=== PATIENT | female | born 1940 | race African-American/Black ===

== ENCOUNTER 2016-06-09 19:54 | Inpatient (IN) | payer MEDICARE ==
[~2016-06-09] VITALS: Ht 165.1 cm; Wt 57.9 kg
[~2016-06-09 19:54] MED LIST: ACET325T9 PO; APIX5TAB PO; BUME1TAB PO; CA C1TAB28 PO; CYCL5TAB PO; DILT240C32 PO; FERR-26 PO; FURO20TA3 PO; HYDR-2762 PO; HYDR-2869 PO; HYDR25TA9 PO; IPRA3AMP IH; LISI40TA PO; MAGN71.5 PO; METO100T11 PO; METO25TA4 PO; METR250T3 PO; OXYB5TAB PO; POTA10CA PO; VERA240C2 PO; VERA80TA2 PO
[2016-06-09] MEDS ORDERED: IV NORMAL SALINE 500ML BAG 500 ML IV ONE (20:45)
[2016-06-09 21:04] LABS: BASO # 0.1 x10^3/uL (0.0-0.2); BASO % 1 % (0-3); EOS % 1 % (0-3); LYMPH # 0.4 x10^3/uL (1.0-4.8); LYMPH % 4 % (24-48); MEAN CORPUSCULAR HEMOGLOBIN 20 pg (25-35); MEAN CORPUSCULAR HGB CONC 30 g/dL (31-37); MEAN CORPUSCULAR VOLUME 68 fL (79-100); MONO % 8 % (0-9); NEUT % 87 % (31-73); PLATELET COUNT 270 x10^3/uL (140-400); RED BLOOD COUNT 1.49 x10^6/uL (3.50-5.40); RED CELL DISTRIBUTION WIDTH 25.7 % (11.5-14.5); WHITE BLOOD COUNT 8.2 x10^3/uL (4.0-11.0)
[2016-06-09 21:09] LABS: HEMATOCRIT 10.2 % (36.0-47.0)
[2016-06-09 21:13] LABS: CALCIUM 8.7 mg/dL (8.5-10.1); GFR 29.5; POTASSIUM 5.3 mmol/L (3.5-5.1)
[2016-06-09 21:18] LABS: BILIRUBIN,URINE NEGATIVE (NEG); GLUCOSE,URINE NEGATIVE (NEG); NITRITE,URINE NEGATIVE (NEG); PH,URINE 5.5; PROTEIN,URINE NEGATIVE (NEG-TRACE); UROBILINOGEN,URINE 0.2 mg/dL (0.2 mg/dL)
[2016-06-09 21:18] LABS: ALBUMIN 2.6 g/dL (3.4-5.0); TOTAL PROTEIN 6.9 g/dL (6.4-8.2)
[2016-06-09 21:19] LABS: ALBUMIN/GLOBULIN RATIO 0.6 (1.0-1.7); TOTAL BILIRUBIN 0.7 mg/dL (0.2-1.0)
[2016-06-09 21:25] LABS: BACTERIA,URINE 0 /HPF (0-FEW); RBC,URINE 0 /HPF (0-2); WBC,URINE 0 /HPF (0-4)
[2016-06-09] MEDS ORDERED: ONDANSETRON PF 4 MG/2 ML VIAL. IV PRN (21:30)
--- NOTE | 2016-06-09 21:32 | PHYS DOC ---
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 She states she is just not felt like getting out of bed. She's been short of breath and has had dyspnea on exertion. She denies any fever chills or sweats. She denies any chest pain. She has not had any melena or hematochezia. No hematemesis. [] Review of Systems Review of Systems Constitutional: Denies fever or chills [] Eyes: Denies change in visual acuity, redness, or eye pain [] HENT: Denies nasal congestion or sore throat [] Respiratory: Per history of present illness [] Cardiovascular: No additional information not addressed in HPI [] GI: Denies abdominal pain, nausea, vomiting, bloody stools or diarrhea [] : Denies dysuria or hematuria [] Musculoskeletal: Denies back pain or joint pain [] Integument: Denies rash or skin lesions [] Neurologic: Denies headache, focal weakness or sensory changes [] Endocrine: Denies polyuria or polydipsia [] Current Medications Current Medications Current Medications Medications (Trade) Dose Ordered Sig/Franchesca Start Time Stop Time Status Last Admin Dose Admin Ondansetron HCl (Zofran) 4 mg PRN Q8HRS PRN 06/09/16 21:30 06/10/16 21:29 Sodium Chloride (Iv Sodium Chloride 0.9% 500ml Bag) 500 ml @ 500 mls/hr 1X ONCE 06/09/16 20:45 06/09/16 21:44 06/09/16 21:20 500 MLS/HR Allergies Allergies Allergies Coded Allergies Type Severity Reaction Last Updated Verified Penicillins Allergy Intermediate Hives 01/30/16 Yes Physical Exam Physical Exam Constitutional: Well developed, well nourished, no acute distress, non-toxic appearance. [] HENT: Normocephalic, atraumatic, bilateral external ears normal, oropharynx moist, no oral exudates, nose normal. [] Eyes: PERRLA, EOMI, conjunctiva normal, no discharge. [] Neck: Normal range of motion, no tenderness, supple, no stridor. [] Cardiovascular:Heart rate regular rhythm, no murmur [] Lungs & Thorax: Bilateral breath sounds clear to auscultation [] Abdomen: Bowel sounds normal, soft, no tenderness, no masses, no pulsatile masses. [] Skin: Warm, dry, no erythema, no rash. [] Back: No tenderness, no CVA tenderness. [] Extremities: No tenderness, no cyanosis, no clubbing, ROM intact, no edema. [] Neurologic: Alert and oriented X 3, normal motor function, normal sensory function, no focal deficits noted. [] Psychologic: Affect normal, judgement normal, mood normal. [] Current Patient Data Vital Signs Vital Signs Date Time Temp Pulse Resp B/P Pulse Ox O2 Delivery O2 Flow Rate FiO2 06/09/16 19:58 97.3 77 18 93/30 88 Nasal Cannula 3 97.3 Lab Values Laboratory Tests Test 06/09/16 20:52 06/09/16 21:11 White Blood Count 8.2x10^3/uL (4.0-11.0) Red Blood Count 1.49x10^6/uL (3.50-5.40) L Hemoglobin 3.0g/dL (12.0-15.5) *L Hematocrit 10.2% (36.0-47.0) *L Mean Corpuscular Volume 68fL (79-100) L Mean Corpuscular Hemoglobin 20pg (25-35) L Mean Corpuscular Hemoglobin Concent 30g/dL (31-37) L Red Cell Distribution Width 25.7% (11.5-14.5) H Platelet Count 270x10^3/uL (140-400) Neutrophils (%) (Auto) 87% (31-73) H Lymphocytes (%) (Auto) 4% (24-48) L Monocytes (%) (Auto) 8% (0-9) Eosinophils (%) (Auto) 1% (0-3) Basophils (%) (Auto) 1% (0-3) Neutrophils # (Auto) 7.1x10^3uL (1.8-7.7) Lymphocytes # (Auto) 0.4x10^3/uL (1.0-4.8) L Monocytes # (Auto) 0.6x10^3/uL (0.0-1.1) Eosinophils # (Auto) 0.0x10^3/uL (0.0-0.7) Basophils # (Auto) 0.1x10^3/uL (0.0-0.2) Platelet Estimate Pending Sodium Level 141mmol/L (136-145) Potassium Level 5.3mmol/L (3.5-5.1) H Chloride Level 108mmol/L (98-107) H Carbon Dioxide Level 21mmol/L (21-32) Anion Gap 12 (6-14) Blood Urea Nitrogen 52mg/dL (7-20) H Creatinine 2.0mg/dL (0.6-1.0) H Estimated GFR (Cockcroft-Gault) 29.5 BUN/Creatinine Ratio 26 (6-20) H Glucose Level 143mg/dL (70-99) H Calcium Level 8.7mg/dL (8.5-10.1) Total Bilirubin 0.7mg/dL (0.2-1.0) Aspartate Amino Transferase (AST) 26U/L (15-37) Alanine Aminotransferase (ALT) 16U/L (14-59) Alkaline Phosphatase 100U/L (46-116) Troponin I Quantitative 0.033ng/mL (0.000-0.055) Total Protein 6.9g/dL (6.4-8.2) Albumin 2.6g/dL (3.4-5.0) L Albumin/Globulin Ratio 0.6 (1.0-1.7) L Urine Collection Type Unknown Urine Color Yellow Urine Clarity Clear Urine pH 5.5 Urine Specific [place] 1.010 Urine Protein Negativemg/dL (NEG-TRACE) Urine Glucose (UA) Negativemg/dL (NEG) Urine Ketones (Stick) Negativemg/dL (NEG) Urine Blood Negative (NEG) Urine Nitrite Negative (NEG) Urine Bilirubin Negative (NEG) Urine Urobilinogen Dipstick 0.2mg/dL (0.2 mg/dL) Urine Leukocyte Esterase Negative (NEG) Urine RBC 0/HPF (0-2) Urine WBC 0/HPF (0-4) Urine Bacteria 0/HPF (0-FEW) Urine Hyaline Casts Moderate/HPF Urine Mucus Slight/LPF Laboratory Tests 06/09/16 20:52 Laboratory Tests 06/09/16 20:52 EKG EKG [] Radiology/Procedures Radiology/Procedures [] Course & Med Decision Making Course & Med Decision Making Pertinent Labs and Imaging studies reviewed. (See chart for details) [ED course: Evaluation reveals a 76-year-old female who appears very weak. It was noted that she had a critically low hemoglobin and hematocrit. Patient was typed and crossed for 2 units of packed red blood cells and a consent for transfusion sign. I spoke with Dr. Abdullahi who agreed to admit the patient to the hospital. GI consult to help in this evaluation.] Dragon Disclaimer Dragon Disclaimer This electronic medical record was generated, in whole or in part, using a voice recognition dictation system. Departure Departure Impression: Primary Impression: Symptomatic anemia Disposition: ADMITTED INPATIENT Admitting Physician: Vijay Abdullahi Condition: GUARDED Referrals: Mehdi ABDULLAHI MD (PCP) ROOSEVELT KAN DO Jun 09, 2016 21:32
[2016-06-09 21:47] LABS: ANISOCYTOSIS MARKED; HYPOCHROMIA MARKED; MICROCYTOSIS MARKED; NUCLEATED RBC 14; PLT ESTIMATE ADEQUATE (ADEQUATE); POIKILOCYTOSIS MOD; POLYCHROMASIA SLIGHT; SICKLE CELLS FEW; TARGET CELLS MANY
[2016-06-09 21:48] LABS: SCHISTOCYTES FEW
[2016-06-09] MEDS ORDERED: FENTANYL PF 100 MCG/2 ML VIAL. IV ONE (22:30)
[2016-06-09 22:38] VITALS: BP 128/62
[2016-06-09 22:43] VITALS: BP 133/64
--- NOTE | 2016-06-09 22:47 | ACF ---
Admission Forms Criteria ANEMIA, IRON DEFICIENCY OR UNSPECIFIED Clinical Indications for Inpatient Care (Place 'X' for any and all applicable criteria): Admission is indicated for ANY ONE of the following(1)(2)(3)(4)(5)(6)(7): [X] I. Inpatient admission required rather than observation care (Also use Anemia, Iron Deficiency or Unspecified: Observation Care guideline as appropriate) because of ANY ONE of the following: [] a) Hemodynamic instability that is severe or persistent [] b) Active bleeding that cannot be rapidly controlled [X] c) CVS symptoms (i.e., dyspnea, chest pain, heart failure) that are severe or persistent [] d) Neurologic symptoms (i.e., cognitive impairment, recurrent syncope or near syncope) that are severe or persistent [] e) Cardiac arrhythmias of immediate concern [] f) Acute peripheral ischemia (e.g., pulseless, cool, mottled, or cyanotic extremity) [] g) High-risk low platelet count [] h) Acute renal failure [] i) Ongoing transfusion for blood loss (greater than 2 units) [] j) IV fluid to replace significant ongoing (eg, >24 hours) losses (> 3 L/m2 per day) [] k) Pulmonary artery catheter monitoring [] l) Supplemental oxygen or respiratory treatments for over 24 hours that are performable only in acute inpatient setting [] m) Immediate inpatient surgery [] n) Other condition, treatment or monitoring requiring inpatient admission [] II Active massive hemorrhage [] III. Active hemolysis with rapidly progressive anemia [A](6) Extended stay beyond goal length of stay may be needed for (17)(18) []a) Diagnosed cause of anemia requiring longer hospitalization (eg, active GI bleeding, immune hemolysis requiring electrophoresis, complications of malignancy requiring acute care []b) Continued emergent anemia indicators (23) []c) Transfusion reactions []d) Associated leukopenia or thrombocytopenia needing inpatient care []e) Active comorbidities (eg, renal failure, heart failure) The original [facility] Care Guidelines content created by [facility] has been revised. The portions of the content which have been revised are identified through the use of italic text or in bold. [facility] Guidelines has neither reviewed nor approved the modified material. All other unmodified content is copyright [facility] Care Guidelines. Please see references footnoted in the original [facility] edition 2016 Admission Criteria Met?: Yes REKHA RAMOS Jun 09, 2016 22:47
[2016-06-09 22:48] VITALS: BP 134/60
[2016-06-09 22:53] VITALS: BP 128/59
[2016-06-09 23:08] VITALS: BP 127/58
[2016-06-09 23:23] VITALS: BP 127/60
[2016-06-10] VITALS (23 sets, daily range): BP systolic 116–149; BP diastolic 42–75
[2016-06-10] MEDS ORDERED: HYDROCODONE/APAP 7.5/325MG TABLET. PO PRN (03:00)
[2016-06-10] MEDS ORDERED: ACET325T9 PO (03:04)
[2016-06-10] MEDS ORDERED: ACETAMINOPHEN 325 MG TABLET. PO PRN (03:15)
--- NOTE | 2016-06-10 06:17 | EKG ---
[facility] [address] [place] [address] Test Date: 2016-06-09 Test Time: 20:19:53 Pat Name: LIMA HECTOR Department: Room: [facility] Gender: F Tunnel Mucker: : 1940 Requested By: ROOSEVELT KAN Order Number: [id number] Reading MD: Maral Mancilla Measurements Intervals [place] Rate: 70 P: 0 MO: 212 QRS: -18 QRSD: 78 T: 26 QT: 424 QTc: 461 Interpretive Statements SINUS RHYTHM LEFTWARD AXIS ST & T ABNORMALITY, CONSIDER HIGH LATERAL ISCHEMIA Electronically Signed On 06-11-2016 21:41:43 CDT by Maral Mancilla
[2016-06-10 06:58] LABS: ALBUMIN 2.5 g/dL (3.4-5.0); ALBUMIN/GLOBULIN RATIO 0.7 (1.0-1.7); CALCIUM 8.6 mg/dL (8.5-10.1); CREATININE 1.8 mg/dL (0.6-1.0); GFR 33.3; TOTAL BILIRUBIN 0.7 mg/dL (0.2-1.0); TOTAL PROTEIN 6.2 g/dL (6.4-8.2)
[2016-06-10 06:59] LABS: POTASSIUM 5.3 mmol/L (3.5-5.1)
[2016-06-10 07:02] LABS: BASO % 1 % (0-3); EOS % 2 % (0-3); LYMPH # 0.9 x10^3/uL (1.0-4.8); LYMPH % 12 % (24-48); MEAN CORPUSCULAR HEMOGLOBIN 24 pg (25-35); MEAN CORPUSCULAR HGB CONC 31 g/dL (31-37); MEAN CORPUSCULAR VOLUME 78 fL (79-100); MONO % 11 % (0-9); NEUT % 75 % (31-73); PLATELET COUNT 231 x10^3/uL (140-400); RED BLOOD COUNT 2.36 x10^6/uL (3.50-5.40); WHITE BLOOD COUNT 7.1 x10^3/uL (4.0-11.0)
[2016-06-10 07:09] LABS: HEMATOCRIT 18.3 % (36.0-47.0); HEMOGLOBIN 5.7 g/dL (12.0-15.5)
--- NOTE | 2016-06-10 08:21 | RAD ---
Indication: Weakness. Technique: Upright portable chest radiograph was obtained. Comparison is from November 25, 2015. Findings: The heart is enlarged. Allowing for portable technique, the pulmonary vasculature is still probably mildly cephalized. No focal airspace disease is identified. Right costophrenic angle is blunted and right basilar opacity is noted. Advanced presumed degenerative changes in the shoulders are stable. Leads overlie the patient. Impression: 1. Mild vascular congestion suspected. 2. Right basilar opacity with blunting of the costophrenic sulcus. A component of pleural parenchymal scarring may be present. Superimposed small effusion along with atelectasis and/or infiltrate is hard to exclude.
[2016-06-10] MEDS: POTASSIUM CHLORIDE 10 MEQ TABLET.ER. PO SCH (09:00)
[2016-06-10] MEDS ORDERED: [UNRECOGNIZED DRUG - REMARK] PO SCH (09:00)
[2016-06-10] MEDS: BUMETANIDE 1 MG TABLET PO SCH (09:55)
[2016-06-10] MEDS: VITAMIN B COMPLEX TABLET. PO SCH (09:55)
[2016-06-10] MEDS: CHOLECALCIFEROL (VITAMIN D3) 1,000 UNIT TABLET PO SCH (09:55)
[2016-06-10] MEDS: METOPROLOL TART IMMED RELEASE 25 MG TABLET PO SCH ×2 (09:56→20:51)
[2016-06-10] MEDS: MAGNESIUM CHLORIDE ER 64 MG TABLET.ER PO SCH ×2 (09:56)
--- NOTE | 2016-06-10 10:52 | PDOC2 ---
CRISTOBAL DUNCAN 06/10/16 1052: GI CONSULT Reason For Consult: Anemia HPI: HPI: 76 y/o AA female previously evaluated by Dr. Butler. Admitted through ER where she was evaluated for fatigue and weakness. PMH is significant for sickle cell anemia. Labs in ER: Hgb 3 (now 5.7 s/p transfusion w/ additional transfusion pending). Note elevated BUN and Cr as well. We have seen her for n/v, elevated LFTs, and hematochezia. She reports previous normal colonoscopy 5-6 years ago and also had an EGD at some point which was also reportedly normal. Not the best historian. On this occasion, she reports some nausea and vomiting at home, no hematemesis. Also had diarrhea (loose and watery stools), no melena or hematochezia. Some GERD symptoms, believes she takes Maalox for this. Eating okay at home. She ate breakfast w/o issue this morning. Note: previously neg Hep panel, hemoccult neg 10/2015. PMH: PMH: Per HPI - plus cholecystectomy, cataract extraction, tonsillectomy, appendectomy , hysterectomy, oophorectomy, salpingectomy, bilateral hip replacements, CVA, HTN, COPD, [place], CHF, h/o blood transfusions, CRI, anxiety, C Diff, A Fib/flutter , lactic acidosis, urosepsis FH: Family History: No pertinent hx Social History: ALCOHOL: none Drugs: None ROS: GEN: Denies fevers, chills, sweats HEENT: Denies blurred vision, sore throat CV: Denies chest pain RESP: +some SOA GI: Per HPI : Denies hematuria, dysuria ENDO: Denies weight changes NEURO: Denies confusion, dizziness MSK: +weakness SKIN: Denies jaundice, pruritus VItals: Vitals: Vital Signs Date Time Temp Pulse Resp B/P Pulse Ox O2 Delivery O2 Flow Rate FiO2 06/10/16 09:56 68 135/66 06/10/16 09:42 97.8 14 97.8 06/10/16 07:00 100 Nasal Cannula 3.0 Labs: Labs: Laboratory Tests Test 06/09/16 20:52 06/09/16 21:11 06/10/16 05:55 White Blood Count 8.2x10^3/uL (4.0-11.0) 7.1x10^3/uL (4.0-11.0) Red Blood Count 1.49x10^6/uL (3.50-5.40) 2.36x10^6/uL (3.50-5.40) Hemoglobin 3.0g/dL (12.0-15.5) 5.7g/dL (12.0-15.5) Hematocrit 10.2% (36.0-47.0) 18.3% (36.0-47.0) Mean Corpuscular Volume 68fL (79-100) 78fL (79-100) Mean Corpuscular Hemoglobin 20pg (25-35) 24pg (25-35) Mean Corpuscular Hemoglobin Concent 30g/dL (31-37) 31g/dL (31-37) Red Cell Distribution Width 25.7% (11.5-14.5) 27.0% (11.5-14.5) Platelet Count 270x10^3/uL (140-400) 231x10^3/uL (140-400) Neutrophils (%) (Auto) 87% (31-73) 75% (31-73) Lymphocytes (%) (Auto) 4% (24-48) 12% (24-48) Monocytes (%) (Auto) 8% (0-9) 11% (0-9) Eosinophils (%) (Auto) 1% (0-3) 2% (0-3) Basophils (%) (Auto) 1% (0-3) 1% (0-3) Neutrophils # (Auto) 7.1x10^3uL (1.8-7.7) 5.3x10^3uL (1.8-7.7) Lymphocytes # (Auto) 0.4x10^3/uL (1.0-4.8) 0.9x10^3/uL (1.0-4.8) Monocytes # (Auto) 0.6x10^3/uL (0.0-1.1) 0.8x10^3/uL (0.0-1.1) Eosinophils # (Auto) 0.0x10^3/uL (0.0-0.7) 0.1x10^3/uL (0.0-0.7) Basophils # (Auto) 0.1x10^3/uL (0.0-0.2) 0.0x10^3/uL (0.0-0.2) Segmented Neutrophils % 95% (35-66) Lymphocytes % 4% (24-48) Monocytes % 1% (0-10) Nucleated Red Blood Cells 14 Platelet Estimate Adequate (ADEQUATE) Giant Platelets Few Polychromasia Slight Hypochromasia Marked Poikilocytosis Mod Anisocytosis Marked Microcytosis Marked Macrocytosis Slight Sickle Cells Few Target Cells Many Schistocytes Few RBC Morphology Bizarre Forms Few Sodium Level 141mmol/L (136-145) 142mmol/L (136-145) Potassium Level 5.3mmol/L (3.5-5.1) 5.3mmol/L (3.5-5.1) Chloride Level 108mmol/L (98-107) 112mmol/L (98-107) Carbon Dioxide Level 21mmol/L (21-32) 22mmol/L (21-32) Anion Gap 12 (6-14) 8 (6-14) Blood Urea Nitrogen 52mg/dL (7-20) 50mg/dL (7-20) Creatinine 2.0mg/dL (0.6-1.0) 1.8mg/dL (0.6-1.0) Estimated GFR (Cockcroft-Gault) 29.5 33.3 BUN/Creatinine Ratio 26 (6-20) 28 (6-20) Glucose Level 143mg/dL (70-99) 104mg/dL (70-99) Calcium Level 8.7mg/dL (8.5-10.1) 8.6mg/dL (8.5-10.1) Total Bilirubin 0.7mg/dL (0.2-1.0) 0.7mg/dL (0.2-1.0) Aspartate Amino Transf (AST/SGOT) 26U/L (15-37) 18U/L (15-37) Alanine Aminotransferase (ALT/SGPT) 16U/L (14-59) 17U/L (14-59) Alkaline Phosphatase 100U/L (46-116) 92U/L (46-116) Troponin I Quantitative 0.033ng/mL (0.000-0.055) Total Protein 6.9g/dL (6.4-8.2) 6.2g/dL (6.4-8.2) Albumin 2.6g/dL (3.4-5.0) 2.5g/dL (3.4-5.0) Albumin/Globulin Ratio 0.6 (1.0-1.7) 0.7 (1.0-1.7) Urine Collection Type Unknown Urine Color Yellow Urine Clarity Clear Urine pH 5.5 Urine Specific [place] 1.010 Urine Protein Negativemg/dL (NEG-TRACE) Urine Glucose (UA) Negativemg/dL (NEG) Urine Ketones (Stick) Negativemg/dL (NEG) Urine Blood Negative (NEG) Urine Nitrite Negative (NEG) Urine Bilirubin Negative (NEG) Urine Urobilinogen Dipstick 0.2mg/dL (0.2 mg/dL) Urine Leukocyte Esterase Negative (NEG) Urine RBC 0/HPF (0-2) Urine WBC 0/HPF (0-4) Urine Bacteria 0/HPF (0-FEW) Urine Hyaline Casts Moderate/HPF Urine Mucus Slight/LPF Allergies: Coded Allergies: Penicillins (Verified Allergy, Intermediate, Hives, 06/10/16) Medications: Current Medications Medications (Trade) Dose Ordered Sig/Franchesca Route PRN Reason Start Time Stop Time Status Last Admin Dose Admin Sodium Chloride (Iv Sodium Chloride 0.9% 500ml Bag) 500 ml @ 500 mls/hr 1X ONCE IV 06/09/16 20:45 06/09/16 21:44 DC 06/09/16 21:20 Fentanyl Citrate (Fentanyl 2ml Vial) 50 mcg 1X ONCE IV 06/09/16 22:30 06/09/16 22:31 DC 06/09/16 22:31 Bumetanide (Bumex) 1 mg DAILY PO 06/10/16 09:00 06/10/16 09:55 Acetaminophen/ Hydrocodone Bitart (Lortab 7.5/325) 1 tab PRN Q6HRS PRN PO PAIN 06/10/16 03:00 06/10/16 03:59 Metoprolol Tartrate (Lopressor) 25 mg BID PO 06/10/16 09:00 06/10/16 09:56 Magnesium Chloride (Mag Delay) 64 mg DAILY PO 06/10/16 09:00 06/10/16 09:56 Vitamin B Complex (Dewayne B) 1 tab DAILY PO 06/10/16 09:00 06/10/16 09:55 Vitamin D (Vitamin D3) 1,000 unit DAILY PO 06/10/16 09:00 06/10/16 09:55 Imaging: Imaging: CXR Impression: 1. Mild vascular congestion suspected. 2. Right basilar opacity with blunting of the costophrenic sulcus. A component of pleural parenchymal scarring may be present. Superimposed small effusion along with atelectasis and/or infiltrate is hard to exclude. PE: GEN: NAD HEENT: Atraumatic, PERRLA LUNGS: CTAB HEART: RRR, no murmurs ABD: NABS, S/ND/NT, no masses EXTREMITY: No edema SKIN: No rashes, no jaundice NEURO/PSYCH: A & O 3 A/P: A/P: Sickle cell anemia -critical Hgb 3 on admission -transfusions in process N/v, diarrhea -history of this - seems to come and go -h/o C Diff -recalls previous EGD and colonoscopy as normal (unsure when/where) -- D/w Dr. Butler - profound anemia w/ slightly elevated BUN. Will proceed w/ EGD tonight to r/o UGI source. NPO, IV PPI. D/w RN, GI lab. Will also check C Diff w/ h/o this. SHAVONNE BUTLER MD 06/10/16 1748: GI CONSULT Allergies: Coded Allergies: Penicillins (Verified Allergy, Intermediate, Hives, 06/10/16) CRISTOBAL DUNCAN Jun 10, 2016 10:52 SHAVONNE BUTLER MD Jun 10, 2016 17:48
[2016-06-10] MEDS: PANTOPRAZOLE IV PUSH 40 MG VIAL. IVP SCH (13:00)
[2016-06-10] MEDS: IV RINGERS,LACTATED 1000ML 1,000 ML IV SCH (16:41)
[2016-06-10] MEDS ORDERED: PROPOFOL 20 ML IV ONE (17:39)
[2016-06-10] MEDS ORDERED: LIDOCAINE 2% PF Vial for OR 5 ML VIAL. ONE (17:39)
--- NOTE | 2016-06-10 17:55 | PDOC4 ---
Operative Note Operative Note EGD Meds propofol 150 mg Pre-op dx severe acute anemia post-op dx atrophic gastritis Plan transfusional support serial cbcs advance diet PROPSHAVONNE MORILLO MD Jun 10, 2016 17:55
--- NOTE | 2016-06-10 18:17 | PDOC ---
Provider Note Provider Note H&P dictated # [id number] Mehdi ABDULLAHI MD Jun 10, 2016 18:17
[2016-06-10] MEDS: DILTIAZEM HCL 240 MG CAP.ER.24H PO SCH (20:51)
--- NOTE | 2016-06-10 20:53 | HP ---
ADMIT DATE: 06/10/2016 ADMISSION DIAGNOSIS: Profound anemia. HISTORY OF PRESENT ILLNESS: This is a 76-year-old -[place] female with a history of longstanding sickle cell anemia, who has presented to the Emergency Room with fatigue and weakness. She was unable to get out of bed due to weakness and feeling short of breath, but not having chest pain. No cold or flu symptoms. In the Emergency Room, she was found to have hemoglobin of 3. She subsequently has been transfused 2 units of blood, hemoglobin has come up, but still low and said that she has not had hemoglobin this low with her sickle cell and not in apparent sickle cell crisis. GI has been consulted. PAST MEDICAL HISTORY: Cerebrovascular accident in 1992 with some mild left-sided weakness. She has heart murmur, cardiac disease, hypertension, COPD, and osteoarthritis. PAST SURGICAL HISTORY: Include cataract extraction, tonsillectomy, adenoidectomy, appendectomy, cholecystectomy, hysterectomy, oophorectomy, salpingectomy, and bilateral hip replacements. SOCIAL HISTORY: Positive for a [id number] tobacco history. FAMILY HISTORY: Sickle cell. ALLERGIES: SHE HAS AN ALLERGY TO PENICILLIN. HOME MEDICATIONS: Include nasal cannula oxygen, Tylenol 325 mg two q. 6-8 hours p.r.n. pain, bumetanide 1 mg daily, vitamin D 3000 units daily, diltiazem 240 mg daily, hydrocodone APAP 7.5/325 mg one q. 6h. p.r.n. pain, Slow-Mag 71.5 mg daily, metoprolol 25 mg b.i.d., and potassium chloride 10 mEq daily. REVIEW OF SYSTEMS: She denies chest pain. She denies any cold or flu symptoms. She has not had any cough. She had not had any nausea or vomiting or noticed any change in her stool. She has not noticed any blood in her stools. She had not noticed any bleeding or bruising in her skin. She denies nosebleeds. She has been profoundly weak without specific joint complaints. She has not had crisis-type sickle cell pain. PHYSICAL EXAMINATION: VITAL SIGNS: She is afebrile. Heart rate has been in the mid 50s upper 50s, and lower 60s. Respiratory rate is normal. Blood pressures are generally around 140/70. She has got oxygen saturations in the [id number] 90s on 3 liters nasal cannula. GENERAL: She is not in a significant amount of distress. She is alert and oriented. She has her glasses on. There is a little bit of icterus to her eyes. HEENT: Mucous membranes are moist. She is wearing nasal cannula oxygen. NECK: Supple. HEART: Regular rate and rhythm with a 2/6 systolic murmur. LUNGS: Sound clear. ABDOMEN: Not showing any epigastric pain or mass. No palpable liver abnormality. Spleen seems a little enlarged, but nontender. Bowel sounds are present. SKIN: Her nails are a bit pale. EXTREMITIES: No clubbing, no edema. LABORATORY DATA: Initial hemoglobin of 3, corrected at 5.7 after 2 units packed red blood cells. Hemoglobin increased from 10.2-18.3. Platelets are normal. Potassium is slightly elevated at 5.3. Electrolytes are normal. BUN is elevated at 52, creatinine is elevated at 2, and glucose 143. Liver enzymes are normal, but albumin is low at 2.6. Urinalysis is unremarkable. IMAGING STUDIES: Chest x-ray showed some mild vascular congestion, right basilar opacity, likely from scarring versus a small effusion. ASSESSMENT: 1. Sickle cell anemia with profound anemia - unexplained just by her sickle cell. She is status post 2 units of packed red cells and remains significantly anemic. She is admitted. GI to see for an endoscopy. She is receiving 2 more units of packed red blood cells. She is not having any acute decompensation symptoms. 2. Chronic kidney disease. 3. Hypertension. 4. Heart murmur. 5. Tobacco use disorder. PLAN: Continue home medications in addition to the above GI evaluation and transfusion. W Kathy ABDULLAHI MD DR: KATE/cyril JOB#: [id number] / [id number]
[2016-06-11 04:34] LABS: HEMATOCRIT 29.3 % (36.0-47.0); HEMOGLOBIN 9.1 g/dL (12.0-15.5); RED BLOOD COUNT 3.64 x10^6/uL (3.50-5.40); RED CELL DISTRIBUTION WIDTH 23.2 % (11.5-14.5); WHITE BLOOD COUNT 7.6 x10^3/uL (4.0-11.0)
[2016-06-11 04:51] LABS: ALBUMIN 2.4 g/dL (3.4-5.0); ALBUMIN/GLOBULIN RATIO 0.5 (1.0-1.7); CALCIUM 8.8 mg/dL (8.5-10.1); CREATININE 1.6 mg/dL (0.6-1.0); GFR 38.1; POTASSIUM 5.1 mmol/L (3.5-5.1); TOTAL BILIRUBIN 0.7 mg/dL (0.2-1.0); TOTAL PROTEIN 6.9 g/dL (6.4-8.2)
[2016-06-11] MEDS: IV RINGERS,LACTATED 1000ML 1,000 ML IV SCH (04:59)
[2016-06-11 07:00] VITALS: BP 133/50
[2016-06-11 07:49] LABS: % SAT IRON 6 % (15-34); IRON,SERUM 18 ug/dL (50-170)
--- NOTE | 2016-06-11 08:56 | PDOC ---
PROGRESS NOTES Subjective Subjective Patient reports feeling well overall this morning. EGD yesterday did not show any acute bleed and Hgb is improved to 9.1 today. Patient reports that she was experiencing left arm pain and weakness yesterday that has now resolved. She had some pain in her right big toe yesterday which has also now resolved. She also states that she has not had a bowel movement since she was admitted on Wednesday. Objective Objective Vital Signs Date Time Temp Pulse Resp B/P Pulse Ox O2 Delivery O2 Flow Rate FiO2 06/11/16 07:00 97.9 51 18 133/50 100 Nasal Cannula 3.0 97.9 Intake and Output 06/11/16 07:00 Intake Total 2780 ml Balance 2780 ml Intake Oral 1230 ml IV Total 450 ml Blood Product IV Normal Saline Flush 1100 ml # Voids 12 Physical Exam Abdomen: Normal bowel sounds, No tenderness Heart: Regular rate, Normal S1, Normal S2, Other (Systolic murmur best heard at left upper sternal border) Extremities: No edema, Normal pulses, No tenderness/swelling General: Alert, Oriented X3 HEENT: Atraumatic, Mucous membr. moist/pink Lungs: Clear to auscultation, Normal air movement MUSCULOSKELETAL: No joint tenderness Neuro: Normal gait Assessment Assessment Problems Medical Problems: (1) Symptomatic anemia she is iron deficient, EGD showed atrophic gastritis but her B12 is normal, she has been on oral iron until recently Status: Acute Plan Plan of Care (1) Symptomatic anemia- Hgb 9.1 today, continue to monitor, EGD negative for acute bleed-demonstrated atrophic gastritis but B12 level and folic acid are normal, will dose IV iron, advance diet Status: Acute Comment Review of Relevant I have reviewed the following items zaire (where applicable) has been applied. Labs Laboratory Tests Test 06/09/16 20:52 06/09/16 21:11 06/10/16 04:05 06/10/16 05:55 White Blood Count 8.2x10^3/uL (4.0-11.0) 7.1x10^3/uL (4.0-11.0) Red Blood Count 1.49x10^6/uL (3.50-5.40) 2.36x10^6/uL (3.50-5.40) Hemoglobin 3.0g/dL (12.0-15.5) 5.7g/dL (12.0-15.5) Hematocrit 10.2% (36.0-47.0) 18.3% (36.0-47.0) Mean Corpuscular Volume 68fL (79-100) 78fL (79-100) Mean Corpuscular Hemoglobin 20pg (25-35) 24pg (25-35) Mean Corpuscular Hemoglobin Concent 30g/dL (31-37) 31g/dL (31-37) Red Cell Distribution Width 25.7% (11.5-14.5) 27.0% (11.5-14.5) Platelet Count 270x10^3/uL (140-400) 231x10^3/uL (140-400) Neutrophils (%) (Auto) 87% (31-73) 75% (31-73) Lymphocytes (%) (Auto) 4% (24-48) 12% (24-48) Monocytes (%) (Auto) 8% (0-9) 11% (0-9) Eosinophils (%) (Auto) 1% (0-3) 2% (0-3) Basophils (%) (Auto) 1% (0-3) 1% (0-3) Neutrophils # (Auto) 7.1x10^3uL (1.8-7.7) 5.3x10^3uL (1.8-7.7) Lymphocytes # (Auto) 0.4x10^3/uL (1.0-4.8) 0.9x10^3/uL (1.0-4.8) Monocytes # (Auto) 0.6x10^3/uL (0.0-1.1) 0.8x10^3/uL (0.0-1.1) Eosinophils # (Auto) 0.0x10^3/uL (0.0-0.7) 0.1x10^3/uL (0.0-0.7) Basophils # (Auto) 0.1x10^3/uL (0.0-0.2) 0.0x10^3/uL (0.0-0.2) Segmented Neutrophils % 95% (35-66) Lymphocytes % 4% (24-48) Monocytes % 1% (0-10) Nucleated Red Blood Cells 14 Platelet Estimate Adequate (ADEQUATE) Giant Platelets Few Polychromasia Slight Hypochromasia Marked Poikilocytosis Mod Anisocytosis Marked Microcytosis Marked Macrocytosis Slight Sickle Cells Few Target Cells Many Schistocytes Few RBC Morphology Bizarre Forms Few Sodium Level 141mmol/L (136-145) 142mmol/L (136-145) Potassium Level 5.3mmol/L (3.5-5.1) 5.3mmol/L (3.5-5.1) Chloride Level 108mmol/L (98-107) 112mmol/L (98-107) Carbon Dioxide Level 21mmol/L (21-32) 22mmol/L (21-32) Anion Gap 12 (6-14) 8 (6-14) Blood Urea Nitrogen 52mg/dL (7-20) 50mg/dL (7-20) Creatinine 2.0mg/dL (0.6-1.0) 1.8mg/dL (0.6-1.0) Estimated GFR (Cockcroft-Gault) 29.5 33.3 BUN/Creatinine Ratio 26 (6-20) 28 (6-20) Glucose Level 143mg/dL (70-99) 104mg/dL (70-99) Calcium Level 8.7mg/dL (8.5-10.1) 8.6mg/dL (8.5-10.1) Total Bilirubin 0.7mg/dL (0.2-1.0) 0.7mg/dL (0.2-1.0) Aspartate Amino Transf (AST/SGOT) 26U/L (15-37) 18U/L (15-37) Alanine Aminotransferase (ALT/SGPT) 16U/L (14-59) 17U/L (14-59) Alkaline Phosphatase 100U/L (46-116) 92U/L (46-116) Troponin I Quantitative 0.033ng/mL (0.000-0.055) Total Protein 6.9g/dL (6.4-8.2) 6.2g/dL (6.4-8.2) Albumin 2.6g/dL (3.4-5.0) 2.5g/dL (3.4-5.0) Albumin/Globulin Ratio 0.6 (1.0-1.7) 0.7 (1.0-1.7) Urine Collection Type Unknown Urine Color Yellow Urine Clarity Clear Urine pH 5.5 Urine Specific [place] 1.010 Urine Protein Negativemg/dL (NEG-TRACE) Urine Glucose (UA) Negativemg/dL (NEG) Urine Ketones (Stick) Negativemg/dL (NEG) Urine Blood Negative (NEG) Urine Nitrite Negative (NEG) Urine Bilirubin Negative (NEG) Urine Urobilinogen Dipstick 0.2mg/dL (0.2 mg/dL) Urine Leukocyte Esterase Negative (NEG) Urine RBC 0/HPF (0-2) Urine WBC 0/HPF (0-4) Urine Bacteria 0/HPF (0-FEW) Urine Hyaline Casts Moderate/HPF Urine Mucus Slight/LPF Iron Level 18ug/dL (50-170) Total Iron Binding Capacity 284ug/dL (250-450) Iron Saturation 6% (15-34) Test 06/11/16 01:05 06/11/16 04:05 Reticulocyte Count (auto) 3.9% (0.5-2.5) White Blood Count 7.6x10^3/uL (4.0-11.0) Red Blood Count 3.64x10^6/uL (3.50-5.40) Hemoglobin 9.1g/dL (12.0-15.5) Hematocrit 29.3% (36.0-47.0) Mean Corpuscular Volume 81fL (79-100) Mean Corpuscular Hemoglobin 25pg (25-35) Mean Corpuscular Hemoglobin Concent 31g/dL (31-37) Red Cell Distribution Width 23.2% (11.5-14.5) Platelet Count 244x10^3/uL (140-400) Sodium Level 145mmol/L (136-145) Potassium Level 5.1mmol/L (3.5-5.1) Chloride Level 111mmol/L (98-107) Carbon Dioxide Level 23mmol/L (21-32) Anion Gap 11 (6-14) Blood Urea Nitrogen 44mg/dL (7-20) Creatinine 1.6mg/dL (0.6-1.0) Estimated GFR (Cockcroft-Gault) 38.1 BUN/Creatinine Ratio 28 (6-20) Glucose Level 113mg/dL (70-99) Calcium Level 8.8mg/dL (8.5-10.1) Total Bilirubin 0.7mg/dL (0.2-1.0) Aspartate Amino Transf (AST/SGOT) 20U/L (15-37) Alanine Aminotransferase (ALT/SGPT) 16U/L (14-59) Alkaline Phosphatase 95U/L (46-116) Total Protein 6.9g/dL (6.4-8.2) Albumin 2.4g/dL (3.4-5.0) Albumin/Globulin Ratio 0.5 (1.0-1.7) Laboratory Tests Test 06/11/16 01:05 06/11/16 04:05 Reticulocyte Count (auto) 3.9% (0.5-2.5) White Blood Count 7.6x10^3/uL (4.0-11.0) Red Blood Count 3.64x10^6/uL (3.50-5.40) Hemoglobin 9.1g/dL (12.0-15.5) Hematocrit 29.3% (36.0-47.0) Mean Corpuscular Volume 81fL (79-100) Mean Corpuscular Hemoglobin 25pg (25-35) Mean Corpuscular Hemoglobin Concent 31g/dL (31-37) Red Cell Distribution Width 23.2% (11.5-14.5) Platelet Count 244x10^3/uL (140-400) Sodium Level 145mmol/L (136-145) Potassium Level 5.1mmol/L (3.5-5.1) Chloride Level 111mmol/L (98-107) Carbon Dioxide Level 23mmol/L (21-32) Anion Gap 11 (6-14) Blood Urea Nitrogen 44mg/dL (7-20) Creatinine 1.6mg/dL (0.6-1.0) Estimated GFR (Cockcroft-Gault) 38.1 BUN/Creatinine Ratio 28 (6-20) Glucose Level 113mg/dL (70-99) Calcium Level 8.8mg/dL (8.5-10.1) Total Bilirubin 0.7mg/dL (0.2-1.0) Aspartate Amino Transf (AST/SGOT) 20U/L (15-37) Alanine Aminotransferase (ALT/SGPT) 16U/L (14-59) Alkaline Phosphatase 95U/L (46-116) Total Protein 6.9g/dL (6.4-8.2) Albumin 2.4g/dL (3.4-5.0) Albumin/Globulin Ratio 0.5 (1.0-1.7) Medications Current Medications Sodium Chloride (Iv Sodium Chloride 0.9% 500ml Bag) 500 ml @ 500 mls/hr 1X ONCE IV Last administered on 06/09/16 21:20; Start 06/09/16 at 20:45; Stop at 21:44; Status DC Ondansetron HCl (Zofran) 4 mg PRN Q8HRS PRN IV NAUSEA/VOMITING; Start 06/09/16 at 21:30; Stop 06/10/16 at 21:29; Status DC Fentanyl Citrate (Fentanyl 2ml Vial) 50 mcg 1X ONCE IV Last administered on 22:31; Start 06/09/16 at 22:30; Stop 06/09/16 at 22:31; Status DC Bumetanide (Bumex) 1 mg DAILY PO Last administered on 06/10/16 09:55; Start at 09:00 Diltiazem HCl (Cardizem 24hr Cd) 240 mg QHS PO Last administered on 06/10/16 20:51; Start 06/10/16 at 21:00 Acetaminophen/ Hydrocodone Bitart (Lortab 7.5/325) 1 tab PRN Q6HRS PRN PO PAIN Last administered on 06/10/16 03:59; Start 06/10/16 at 03:00 Metoprolol Tartrate (Lopressor) 25 mg BID PO Last administered on 06/10/16 20: 51; Start 06/10/16 at 09:00 Non-Formulary Medication 1 each DAILY PO ; Start 06/10/16 at 09:00; Status UNV Magnesium Chloride (Mag Delay) 64 mg DAILY PO Last administered on 06/10/16 09 :56; Start 06/10/16 at 09:00 Potassium Chloride (Klor-Con) 10 meq DAILY PO ; Start 06/10/16 at 09:00 Acetaminophen (Tylenol) 650 mg PRN Q6HRS PRN PO MILD PAIN; Start 06/10/16 at 03 :15 Vitamin B Complex (Dewayen B) 1 tab DAILY PO Last administered on 06/10/16 09:55 ; Start 06/10/16 at 09:00 Vitamin D (Vitamin D3) 1,000 unit DAILY PO Last administered on 06/10/16 09:55 ; Start 06/10/16 at 09:00 Pantoprazole Sodium 40 mg 40 mg DAILYAC IVP Last administered on 06/10/16 13: 00; Start 06/10/16 at 10:00 Lactated Ringer's 1,000 ml @ 75 mls/hr [id number] IV Last administered on 04:59; Start 06/10/16 at 17:00 Propofol (Diprivan) 20 ml @ As Directed STK-MED ONCE IV ; Start 06/10/16 at 17: 39; Stop 06/10/16 at 17:40; Status DC Lidocaine HCl (Lidocaine Pf 2% Vial) 5 ml STK-MED ONCE .ROUTE ; Start 06/10/16 at 17:39; Stop 06/10/16 at 17:40; Status DC Active Scripts Active Slow-Mag (Magnesium Chloride) 71.5 Mg Tablet.dr 71.5 Mg PO DAILY Metoprolol Tartrate 25 Mg Tablet 25 Mg PO BID Diltiazem 24HR Cd (Diltiazem Hcl) 240 Mg Cap.er.24h 240 Mg PO QHS Bumetanide 1 Mg Tablet 1 Mg PO DAILY Reported Tylenol (Acetaminophen) 325 Mg Tablet 650 Mg PO Q6-8HRS PRN Potassium Chloride 10 Meq Capsule.er 1 Cap PO DAILY Hydrocodone-Apap 7.5-325 (Hydrocodone Bit/Acetaminophen) 1 Each Tablet 1 Tab PO PRN Q6HRS PRN Vitamin D3 1,000 Unit Tablet (Ca Cmb No.1/Vit D3/B-6/Fa/B12) 1 Each Tablet 1 Each PO DAILY Vitals/I & O Vital Sign - Last 24 Hours 06/10/16 06/10/16 06/10/16 06/10/16 09:27 09:42 09:56 10:44 Temp 97.7 97.8 98.5 97.7 97.8 98.5 Pulse 65 68 68 63 Resp 16 14 20 B/P 135/67 135/66 135/66 148/60 Pulse Ox 100 O2 Delivery Nasal Cannula O2 Flow Rate 3.0 3/15/17 3/15/17 3/15/17 3/15/17 10:45 11:45 12:20 13:35 Temp 98.5 97.8 98.4 98.3 98.5 97.8 98.4 98.3 Pulse 63 61 57 72 Resp 20 18 16 16 B/P 148/60 149/67 130/63 145/74 06/10/16 06/10/16 06/10/16 06/10/16 13:50 14:42 14:50 15:50 Temp 98.4 97.7 98.5 98.5 98.4 97.7 98.5 98.5 Pulse 67 71 59 57 Resp 18 20 18 18 B/P 133/75 143/73 133/69 139/66 Pulse Ox 97 O2 Delivery Nasal Cannula O2 Flow Rate 3.0 06/10/16 06/10/16 06/10/16 06/10/16 16:18 16:18 16:33 17:58 Temp 97.8 97.9 97.9 97.8 97.9 97.9 Pulse 68 54 60 Resp 18 16 20 B/P 149/69 114/73 Pulse Ox 95 98 O2 Delivery Nasal Cannula Nasal Cannula O2 Flow Rate 3.0 3.0 06/10/16 06/10/16 06/10/16 06/10/16 18:08 18:15 19:00 20:00 Temp 97.9 97.9 97.6 97.9 97.9 97.6 Pulse 61 64 54 Resp 20 20 20 B/P 116/51 141/62 144/71 Pulse Ox 96 97 93 O2 Delivery Nasal Cannula Nasal Cannula Nasal Cannula Nasal Cannula O2 Flow Rate 3.0 3.0 3.0 3.0 06/10/16 06/10/16 06/10/16 06/11/16 20:51 20:51 22:41 07:00 Temp 98.1 97.9 98.1 97.9 Pulse 54 54 61 51 Resp 19 18 B/P 144/71 144/71 134/53 133/50 Pulse Ox 100 100 O2 Delivery Nasal Cannula Nasal Cannula O2 Flow Rate 3.0 3.0 Intake and Output 06/10/16 06/10/16 06/11/16 15:00 23:00 07:00 Intake Total 1280 ml 450 ml 1050 ml Balance 1280 ml 450 ml 1050 ml Mehdi ABDULLAHI MD Jun 11, 2016 08:56
[2016-06-11] MEDS: BUMETANIDE 1 MG TABLET PO SCH (09:00)
[2016-06-11] MEDS: POTASSIUM CHLORIDE 10 MEQ TABLET.ER. PO SCH (09:00)
[2016-06-11] MEDS: METOPROLOL TART IMMED RELEASE 25 MG TABLET PO SCH ×2 (09:09→21:23)
[2016-06-11] MEDS: CHOLECALCIFEROL (VITAMIN D3) 1,000 UNIT TABLET PO SCH (09:09)
[2016-06-11] MEDS: VITAMIN B COMPLEX TABLET. PO SCH (09:09)
[2016-06-11] MEDS: PANTOPRAZOLE IV PUSH 40 MG VIAL. IVP SCH (09:10)
[2016-06-11] MEDS: MAGNESIUM CHLORIDE ER 64 MG TABLET.ER PO SCH ×2 (09:16)
[2016-06-11 10:55] VITALS: BP 125/49
--- NOTE | 2016-06-11 11:14 | PDOC ---
G I PROGRESS NOTE Reason for Follow-up Acute blood loss anemia Subjective Feeling better S/p transfusions Physical Exam Lungs clear CV S1 S2 ABD +BS, soft, nontender Review of Relevant I have reviewed the following items zaire (where applicable) has been applied. Labs Laboratory Tests Test 06/09/16 20:52 06/09/16 21:11 06/10/16 04:05 06/10/16 05:55 White Blood Count 8.2x10^3/uL (4.0-11.0) 7.1x10^3/uL (4.0-11.0) Red Blood Count 1.49x10^6/uL (3.50-5.40) 2.36x10^6/uL (3.50-5.40) Hemoglobin 3.0g/dL (12.0-15.5) 5.7g/dL (12.0-15.5) Hematocrit 10.2% (36.0-47.0) 18.3% (36.0-47.0) Mean Corpuscular Volume 68fL (79-100) 78fL (79-100) Mean Corpuscular Hemoglobin 20pg (25-35) 24pg (25-35) Mean Corpuscular Hemoglobin Concent 30g/dL (31-37) 31g/dL (31-37) Red Cell Distribution Width 25.7% (11.5-14.5) 27.0% (11.5-14.5) Platelet Count 270x10^3/uL (140-400) 231x10^3/uL (140-400) Neutrophils (%) (Auto) 87% (31-73) 75% (31-73) Lymphocytes (%) (Auto) 4% (24-48) 12% (24-48) Monocytes (%) (Auto) 8% (0-9) 11% (0-9) Eosinophils (%) (Auto) 1% (0-3) 2% (0-3) Basophils (%) (Auto) 1% (0-3) 1% (0-3) Neutrophils # (Auto) 7.1x10^3uL (1.8-7.7) 5.3x10^3uL (1.8-7.7) Lymphocytes # (Auto) 0.4x10^3/uL (1.0-4.8) 0.9x10^3/uL (1.0-4.8) Monocytes # (Auto) 0.6x10^3/uL (0.0-1.1) 0.8x10^3/uL (0.0-1.1) Eosinophils # (Auto) 0.0x10^3/uL (0.0-0.7) 0.1x10^3/uL (0.0-0.7) Basophils # (Auto) 0.1x10^3/uL (0.0-0.2) 0.0x10^3/uL (0.0-0.2) Segmented Neutrophils % 95% (35-66) Lymphocytes % 4% (24-48) Monocytes % 1% (0-10) Nucleated Red Blood Cells 14 Platelet Estimate Adequate (ADEQUATE) Giant Platelets Few Polychromasia Slight Hypochromasia Marked Poikilocytosis Mod Anisocytosis Marked Microcytosis Marked Macrocytosis Slight Sickle Cells Few Target Cells Many Schistocytes Few RBC Morphology Bizarre Forms Few Sodium Level 141mmol/L (136-145) 142mmol/L (136-145) Potassium Level 5.3mmol/L (3.5-5.1) 5.3mmol/L (3.5-5.1) Chloride Level 108mmol/L (98-107) 112mmol/L (98-107) Carbon Dioxide Level 21mmol/L (21-32) 22mmol/L (21-32) Anion Gap 12 (6-14) 8 (6-14) Blood Urea Nitrogen 52mg/dL (7-20) 50mg/dL (7-20) Creatinine 2.0mg/dL (0.6-1.0) 1.8mg/dL (0.6-1.0) Estimated GFR (Cockcroft-Gault) 29.5 33.3 BUN/Creatinine Ratio 26 (6-20) 28 (6-20) Glucose Level 143mg/dL (70-99) 104mg/dL (70-99) Calcium Level 8.7mg/dL (8.5-10.1) 8.6mg/dL (8.5-10.1) Total Bilirubin 0.7mg/dL (0.2-1.0) 0.7mg/dL (0.2-1.0) Aspartate Amino Transf (AST/SGOT) 26U/L (15-37) 18U/L (15-37) Alanine Aminotransferase (ALT/SGPT) 16U/L (14-59) 17U/L (14-59) Alkaline Phosphatase 100U/L (46-116) 92U/L (46-116) Troponin I Quantitative 0.033ng/mL (0.000-0.055) Total Protein 6.9g/dL (6.4-8.2) 6.2g/dL (6.4-8.2) Albumin 2.6g/dL (3.4-5.0) 2.5g/dL (3.4-5.0) Albumin/Globulin Ratio 0.6 (1.0-1.7) 0.7 (1.0-1.7) Urine Collection Type Unknown Urine Color Yellow Urine Clarity Clear Urine pH 5.5 Urine Specific [place] 1.010 Urine Protein Negativemg/dL (NEG-TRACE) Urine Glucose (UA) Negativemg/dL (NEG) Urine Ketones (Stick) Negativemg/dL (NEG) Urine Blood Negative (NEG) Urine Nitrite Negative (NEG) Urine Bilirubin Negative (NEG) Urine Urobilinogen Dipstick 0.2mg/dL (0.2 mg/dL) Urine Leukocyte Esterase Negative (NEG) Urine RBC 0/HPF (0-2) Urine WBC 0/HPF (0-4) Urine Bacteria 0/HPF (0-FEW) Urine Hyaline Casts Moderate/HPF Urine Mucus Slight/LPF Iron Level 18ug/dL (50-170) Total Iron Binding Capacity 284ug/dL (250-450) Iron Saturation 6% (15-34) Test 06/11/16 01:05 06/11/16 04:05 Reticulocyte Count (auto) 3.9% (0.5-2.5) White Blood Count 7.6x10^3/uL (4.0-11.0) Red Blood Count 3.64x10^6/uL (3.50-5.40) Hemoglobin 9.1g/dL (12.0-15.5) Hematocrit 29.3% (36.0-47.0) Mean Corpuscular Volume 81fL (79-100) Mean Corpuscular Hemoglobin 25pg (25-35) Mean Corpuscular Hemoglobin Concent 31g/dL (31-37) Red Cell Distribution Width 23.2% (11.5-14.5) Platelet Count 244x10^3/uL (140-400) Sodium Level 145mmol/L (136-145) Potassium Level 5.1mmol/L (3.5-5.1) Chloride Level 111mmol/L (98-107) Carbon Dioxide Level 23mmol/L (21-32) Anion Gap 11 (6-14) Blood Urea Nitrogen 44mg/dL (7-20) Creatinine 1.6mg/dL (0.6-1.0) Estimated GFR (Cockcroft-Gault) 38.1 BUN/Creatinine Ratio 28 (6-20) Glucose Level 113mg/dL (70-99) Calcium Level 8.8mg/dL (8.5-10.1) Total Bilirubin 0.7mg/dL (0.2-1.0) Aspartate Amino Transf (AST/SGOT) 20U/L (15-37) Alanine Aminotransferase (ALT/SGPT) 16U/L (14-59) Alkaline Phosphatase 95U/L (46-116) Total Protein 6.9g/dL (6.4-8.2) Albumin 2.4g/dL (3.4-5.0) Albumin/Globulin Ratio 0.5 (1.0-1.7) Laboratory Tests Test 06/11/16 01:05 06/11/16 04:05 Reticulocyte Count (auto) 3.9% (0.5-2.5) White Blood Count 7.6x10^3/uL (4.0-11.0) Red Blood Count 3.64x10^6/uL (3.50-5.40) Hemoglobin 9.1g/dL (12.0-15.5) Hematocrit 29.3% (36.0-47.0) Mean Corpuscular Volume 81fL (79-100) Mean Corpuscular Hemoglobin 25pg (25-35) Mean Corpuscular Hemoglobin Concent 31g/dL (31-37) Red Cell Distribution Width 23.2% (11.5-14.5) Platelet Count 244x10^3/uL (140-400) Sodium Level 145mmol/L (136-145) Potassium Level 5.1mmol/L (3.5-5.1) Chloride Level 111mmol/L (98-107) Carbon Dioxide Level 23mmol/L (21-32) Anion Gap 11 (6-14) Blood Urea Nitrogen 44mg/dL (7-20) Creatinine 1.6mg/dL (0.6-1.0) Estimated GFR (Cockcroft-Gault) 38.1 BUN/Creatinine Ratio 28 (6-20) Glucose Level 113mg/dL (70-99) Calcium Level 8.8mg/dL (8.5-10.1) Total Bilirubin 0.7mg/dL (0.2-1.0) Aspartate Amino Transf (AST/SGOT) 20U/L (15-37) Alanine Aminotransferase (ALT/SGPT) 16U/L (14-59) Alkaline Phosphatase 95U/L (46-116) Total Protein 6.9g/dL (6.4-8.2) Albumin 2.4g/dL (3.4-5.0) Albumin/Globulin Ratio 0.5 (1.0-1.7) Medications Current Medications Sodium Chloride (Iv Sodium Chloride 0.9% 500ml Bag) 500 ml @ 500 mls/hr 1X ONCE IV Last administered on 06/09/16 21:20; Start 06/09/16 at 20:45; Stop at 21:44; Status DC Ondansetron HCl (Zofran) 4 mg PRN Q8HRS PRN IV NAUSEA/VOMITING; Start 06/09/16 at 21:30; Stop 06/10/16 at 21:29; Status DC Fentanyl Citrate (Fentanyl 2ml Vial) 50 mcg 1X ONCE IV Last administered on 22:31; Start 06/09/16 at 22:30; Stop 06/09/16 at 22:31; Status DC Bumetanide (Bumex) 1 mg DAILY PO Last administered on 06/10/16 09:55; Start at 09:00 Diltiazem HCl (Cardizem 24hr Cd) 240 mg QHS PO Last administered on 06/10/16 20:51; Start 06/10/16 at 21:00 Acetaminophen/ Hydrocodone Bitart (Lortab 7.5/325) 1 tab PRN Q6HRS PRN PO PAIN Last administered on 06/10/16 03:59; Start 06/10/16 at 03:00 Metoprolol Tartrate (Lopressor) 25 mg BID PO Last administered on 06/11/16 09: 09; Start 06/10/16 at 09:00 Non-Formulary Medication 1 each DAILY PO ; Start 06/10/16 at 09:00; Status UNV Magnesium Chloride (Mag Delay) 64 mg DAILY PO Last administered on 06/11/16 09 :16; Start 06/10/16 at 09:00 Potassium Chloride (Klor-Con) 10 meq DAILY PO ; Start 06/10/16 at 09:00 Acetaminophen (Tylenol) 650 mg PRN Q6HRS PRN PO MILD PAIN; Start 06/10/16 at 03 :15 Vitamin B Complex (Dewayne B) 1 tab DAILY PO Last administered on 06/11/16 09:09 ; Start 06/10/16 at 09:00 Vitamin D (Vitamin D3) 1,000 unit DAILY PO Last administered on 06/11/16 09:09 ; Start 06/10/16 at 09:00 Pantoprazole Sodium 40 mg 40 mg DAILYAC IVP Last administered on 06/11/16 09: 10; Start 06/10/16 at 10:00 Lactated Ringer's 1,000 ml @ 75 mls/hr [id number] IV Last administered on 04:59; Start 06/10/16 at 17:00 Propofol (Diprivan) 20 ml @ As Directed STK-MED ONCE IV ; Start 06/10/16 at 17: 39; Stop 06/10/16 at 17:40; Status DC Lidocaine HCl (Lidocaine Pf 2% Vial) 5 ml STK-MED ONCE .ROUTE ; Start 06/10/16 at 17:39; Stop 06/10/16 at 17:40; Status DC Active Scripts Active Slow-Mag (Magnesium Chloride) 71.5 Mg Tablet.dr 71.5 Mg PO DAILY Metoprolol Tartrate 25 Mg Tablet 25 Mg PO BID Diltiazem 24HR Cd (Diltiazem Hcl) 240 Mg Cap.er.24h 240 Mg PO QHS Bumetanide 1 Mg Tablet 1 Mg PO DAILY Reported Tylenol (Acetaminophen) 325 Mg Tablet 650 Mg PO Q6-8HRS PRN Potassium Chloride 10 Meq Capsule.er 1 Cap PO DAILY Hydrocodone-Apap 7.5-325 (Hydrocodone Bit/Acetaminophen) 1 Each Tablet 1 Tab PO PRN Q6HRS PRN Vitamin D3 1,000 Unit Tablet (Ca Cmb No.1/Vit D3/B-6/Fa/B12) 1 Each Tablet 1 Each PO DAILY Vitals/I & O Vital Sign - Last 24 Hours 06/10/16 06/10/16 06/10/16 06/10/16 11:45 12:20 13:35 13:50 Temp 97.8 98.4 98.3 98.4 97.8 98.4 98.3 98.4 Pulse 61 57 72 67 Resp 18 16 16 18 B/P 149/67 130/63 145/74 133/75 06/10/16 06/10/16 06/10/16 06/10/16 14:42 14:50 15:50 16:18 Temp 97.7 98.5 98.5 97.7 98.5 98.5 Pulse 71 59 57 Resp 20 18 18 B/P 143/73 133/69 139/66 Pulse Ox 97 O2 Delivery Nasal Cannula Nasal Cannula O2 Flow Rate 3.0 3.0 06/10/16 06/10/16 06/10/16 06/10/16 16:18 16:33 17:58 18:08 Temp 97.8 97.9 97.9 97.9 97.8 97.9 97.9 97.9 Pulse 68 54 60 61 Resp 18 16 20 20 B/P 149/69 114/73 116/51 Pulse Ox 95 98 96 O2 Delivery Nasal Cannula Nasal Cannula O2 Flow Rate 3.0 3.0 06/10/16 06/10/16 06/10/16 06/10/16 18:15 19:00 20:00 20:51 Temp 97.9 97.6 97.9 97.6 Pulse 64 54 54 Resp 20 20 B/P 141/62 144/71 144/71 Pulse Ox 97 93 O2 Delivery Nasal Cannula Nasal Cannula Nasal Cannula O2 Flow Rate 3.0 3.0 3.0 06/10/16 06/10/16 06/11/16 06/11/16 20:51 22:41 07:00 08:00 Temp 98.1 97.9 98.1 97.9 Pulse 54 61 51 Resp 19 18 B/P 144/71 134/53 133/50 Pulse Ox 100 100 O2 Delivery Nasal Cannula Nasal Cannula Nasal Cannula O2 Flow Rate 3.0 3.0 3.0 06/11/16 06/11/16 09:09 10:55 Temp 97.9 97.9 Pulse 51 53 Resp 18 B/P 133/50 125/49 Pulse Ox 99 O2 Delivery Nasal Cannula O2 Flow Rate 3.0 Intake and Output 06/10/16 06/10/16 06/11/16 15:00 23:00 07:00 Intake Total 1280 ml 450 ml 1050 ml Balance 1280 ml 450 ml 1050 ml Problem List Problems Medical Problems: (1) Symptomatic anemia Status: Acute Assessment Acute blood loss anemia- most likely multifactorial in etiology, Hg improved, advance diet and activity as tolerated SHAVONNE SAUCEDO MD Jun 11, 2016 11:14
[2016-06-11 11:36] LABS: FOLATE 6.83 ng/ml (3.2-20.0)
[2016-06-11 14:30] VITALS: BP 129/49
[2016-06-11 19:00] VITALS: BP 126/47
[2016-06-11] MEDS ORDERED: IRON SUCROSE COMPLEX 200 MG in IV NORMAL SALINE 100ML 100 ML IV ONE (20:00)
[2016-06-11] MEDS: DILTIAZEM HCL 240 MG CAP.ER.24H PO SCH (21:22)
[2016-06-11 23:00] VITALS: BP 140/49
[2016-06-12 03:00] VITALS: BP 131/50
[2016-06-12 06:57] LABS: BASO % 0 % (0-3); EOS % 7 % (0-3); HEMOGLOBIN 8.5 g/dL (12.0-15.5); LYMPH # 0.5 x10^3/uL (1.0-4.8); LYMPH % 6 % (24-48); MEAN CORPUSCULAR HEMOGLOBIN 25 pg (25-35); MEAN CORPUSCULAR HGB CONC 32 g/dL (31-37); MEAN CORPUSCULAR VOLUME 81 fL (79-100); MONO % 12 % (0-9); NEUT % 75 % (31-73); PLATELET COUNT 242 x10^3/uL (140-400); RED BLOOD COUNT 3.36 x10^6/uL (3.50-5.40); RED CELL DISTRIBUTION WIDTH 24.6 % (11.5-14.5); WHITE BLOOD COUNT 7.7 x10^3/uL (4.0-11.0)
[2016-06-12 07:00] VITALS: BP 135/49
[2016-06-12 07:14] LABS: ALBUMIN 2.4 g/dL (3.4-5.0); ALBUMIN/GLOBULIN RATIO 0.6 (1.0-1.7); GFR 29.5; POTASSIUM 4.7 mmol/L (3.5-5.1); TOTAL BILIRUBIN 0.8 mg/dL (0.2-1.0); TOTAL PROTEIN 6.5 g/dL (6.4-8.2)
[2016-06-12] MEDS: PANTOPRAZOLE IV PUSH 40 MG VIAL. IVP SCH (08:23)
[2016-06-12] MEDS: VITAMIN B COMPLEX TABLET. PO SCH (08:23)
[2016-06-12] MEDS: MAGNESIUM CHLORIDE ER 64 MG TABLET.ER PO SCH ×2 (08:24)
[2016-06-12] MEDS: POTASSIUM CHLORIDE 10 MEQ TABLET.ER. PO SCH (08:24)
[2016-06-12] MEDS: METOPROLOL TART IMMED RELEASE 25 MG TABLET PO SCH (08:24)
[2016-06-12] MEDS: BUMETANIDE 1 MG TABLET PO SCH (08:24)
[2016-06-12] MEDS: CHOLECALCIFEROL (VITAMIN D3) 1,000 UNIT TABLET PO SCH (08:25)
[2016-06-12 10:51] VITALS: BP 138/44
--- NOTE | 2016-06-12 12:49 | PDOC ---
Provider Note Provider Note discharge dictated #[id number] Mehdi ABDULLAHI MD Jun 12, 2016 12:49
--- NOTE | 2016-06-15 02:11 | DS ---
DATE OF DISCHARGE: 06/12/2016 ADMISSION DIAGNOSIS: Profound anemia. DISCHARGE DIAGNOSIS: Sickle cell crisis with profound anemia. CONSULTS: Dr. Butler. PRINCIPAL PROCEDURE: EGD and transfusion of 4 units packed red blood cells. HISTORY AND HOSPITAL COURSE: This is a 76-year-old -[place] female with longstanding sickle cell anemia, who typically runs hemoglobin around 9. She presented to the Emergency Room with profound weakness and fatigue and was unable to get out of bed. She got short of breath and had exertional dyspnea. She had joint pain. She was found to have a hemoglobin of 3. She was admitted and transfused 2 units of packed red blood cells overnight. The following day, her hemoglobin aldair to just above 5. She was transfused 2 more units of packed red cells and has been stable now with a hemoglobin yesterday of 9.1 and today at 8.5. She was seen by Dr. 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 Her reticulocyte count was high at 3.9 and her haptoglobin was low at 25, and her iron was low. She was given Venofer 200 mg IV once. She was hydrated with IV fluids initially. She had no complications while here other than some joint pain, particularly in her hands, but that is resolved. She is now up with her walker and independent with her activities. She is able to stand independently at the sink and do her ADLs without any lightheadedness or dizziness. She has her usual heart murmur. Lungs are clear. Abdomen is nondistended, nontender. No significant edema is present. No lower GI bleeding was encountered while here. She will be discharged home to continue her home medications, including Tylenol p.r.n., bumetanide 1 mg daily, vitamin D3 1000 units daily, diltiazem CD 240 mg daily, hydrocodone/APAP 1 q.i.d. p.r.n. pain, metoprolol 25 mg b.i.d. and potassium chloride 10 mEq daily. Her magnesium chloride/Slow-Mag is stopped. Her potassium was a little bit elevated initially here, but that was after transfusion. She will follow up in a week or two in the office, plan on a CBC and a BMP at that time. It does not appear that she needs home health or other services. W Kathy ABDULLAHI MD DR: Richy JOB#: [id number] / [id number]
== END 2016-06-12 14:56 | disposition home or self-care (01) | DRG 811 ==
LOC: ER 19:54 → 5 SOUTH 21:21
PROVIDERS: ADMIT Family Medicine; ATTEND Family Medicine
PROC: 30233N1 Transfusion of Nonautologous Red Blood Cells into Peripheral Vein, Percutaneous Approach (ICD-10-PCS; 2016-06-10)
PROC: 0DJ08ZZ Inspection of Upper Intestinal Tract, Via Natural or Artificial Opening Endoscopic (ICD-10-PCS; principal; 2016-06-10 17:30)
DX: D57.00 Hb-SS disease with crisis, unspecified (principal); E43 Unspecified severe protein-calorie malnutrition; I13.0 Hypertensive heart and chronic kidney disease with heart failure and stage 1 through stage 4 chronic kidney disease, or unspecified chronic kidney disease; I69.354 Hemiplegia and hemiparesis following cerebral infarction affecting left non-dominant side; J96.10 Chronic respiratory failure, unspecified whether with hypoxia or hypercapnia; D64.9 Anemia, unspecified; Z96.643 Presence of artificial hip joint, bilateral; D62 Acute posthemorrhagic anemia; I27.2 Other secondary pulmonary hypertension; I50.9 Heart failure, unspecified; J44.9 Chronic obstructive pulmonary disease, unspecified; K29.40 Chronic atrophic gastritis without bleeding; M19.90 Unspecified osteoarthritis, unspecified site; N18.9 Chronic kidney disease, unspecified; Z72.0 Tobacco use; Z79.899 Other long term (current) drug therapy; Z90.49 Acquired absence of other specified parts of digestive tract; Z90.710 Acquired absence of both cervix and uterus; Z88.0 Allergy status to penicillin
CPT/HCPCS: 36415; 71010; 80053; 81001; 82607; 82746; 83010; 83540; 83550; 84484; 85007; 85027; 85045; 86850; 86900; 86901; 86920; 93005; 96361; 96374; C9113; J1756; J2704; J3010; J7040; J7120; P9016; 99285-25

== ENCOUNTER 2016-08-09 19:19 | Inpatient (IN) | payer BC, MEDICARE ==
[2016-08-09] VITALS (14 sets, daily range): BP systolic 99–118; BP diastolic 38–72
[~2016-08-09] VITALS: Ht 165.1 cm; Wt 67.1 kg
[~2016-08-09 19:19] MED LIST changes: -POTA10CA PO; +POTASSIUM CHLO10 MEQ PO
[2016-08-09 19:54] LABS: BASO % 0 % (0-3); EOS % 2 % (0-3); LYMPH # 0.9 x10^3/uL (1.0-4.8); LYMPH % 12 % (24-48); MEAN CORPUSCULAR HEMOGLOBIN 18 pg (25-35); MEAN CORPUSCULAR HGB CONC 30 g/dL (31-37); MEAN CORPUSCULAR VOLUME 62 fL (79-100); MONO % 6 % (0-9); NEUT % 80 % (31-73); PLATELET COUNT 262 x10^3/uL (140-400); RED BLOOD COUNT 1.41 x10^6/uL (3.50-5.40); RED CELL DISTRIBUTION WIDTH 25.4 % (11.5-14.5); WHITE BLOOD COUNT 7.4 x10^3/uL (4.0-11.0)
[2016-08-09 20:00] LABS: HEMOGLOBIN 2.6 g/dL (12.0-15.5)
[2016-08-09 20:01] LABS: HEMATOCRIT 8.7 % (36.0-47.0)
[2016-08-09 20:02] LABS: CALCIUM 8.5 mg/dL (8.5-10.1); GFR 29.5; POTASSIUM 4.9 mmol/L (3.5-5.1)
[2016-08-09 20:08] LABS: ALBUMIN 2.5 g/dL (3.4-5.0); ALBUMIN/GLOBULIN RATIO 0.6 (1.0-1.7); TOTAL BILIRUBIN 0.4 mg/dL (0.2-1.0); TOTAL PROTEIN 6.6 g/dL (6.4-8.2)
[2016-08-09 20:14] LABS: INR 2.1 (0.8-1.1); PROTHROMBIN TIME PATIENT 22.4 SEC (11.7-14.0)
[2016-08-09] MEDS ORDERED: fentaNYL PF VIAL 100 MCG/2 ML VIAL IV PRN ×2 (20:15→21:45)
[2016-08-09] MEDS ORDERED: FUROSEMIDE 20 MG/2 ML VIAL. IV PRN (20:15)
[2016-08-09 20:19] LABS: NEG OBC FOB NEG; POS OBC FOB POS
[2016-08-09] MEDS: PANTOPRAZOLE SODIUM IV 80 MG in IV NORMAL SALINE 100ML 100 ML IV SCH (20:45)
[2016-08-09] MEDS ORDERED: OCTREOTIDE 100 MCG/ML VIAL IV ONE (20:45)
[2016-08-09] MEDS ORDERED: OCTREOTIDE 500 MCG in IV NORMAL SALINE 100ML 100 ML IV PRN (20:45)
[2016-08-09] MEDS ORDERED: PANTOPRAZOLE SODIUM IV 80 MG in IV NORMAL SALINE 100ML 100 ML IV ONE (20:45)
[2016-08-09 20:49] LABS: % EOS 1 % (0-5); NUCLEATED RBC 8; PLT ESTIMATE ADEQUATE (ADEQUATE)
[2016-08-09 20:50] LABS: ANISOCYTOSIS MARKED; HYPOCHROMIA MARKED; MICROCYTOSIS MARKED; POIKILOCYTOSIS MARKED; POLYCHROMASIA MOD; TARGET CELLS MOD
[2016-08-09] MEDS ORDERED: PANTOPRAZOLE IV PUSH 40 MG VIAL. IVP ONE (21:30)
[2016-08-09] MEDS ORDERED: ONDANSETRON PF 4 MG/2 ML VIAL. IV PRN (21:45)
[2016-08-09] MEDS ORDERED: ACETAMINOPHEN 325 MG TABLET. PO PRN (21:45)
--- NOTE | 2016-08-09 23:13 | ED.ADGEN ---
Past Medical History Past Medical History: Arthritis, CHF, COPD, GI Bleed, Hypertension, Sickle Cell Disease, Other Additional Past Medical Histor: PULMONARY HTN,MALIGNANT HTN,02 DEPENDENCE Past Surgical History: Appendectomy, Cholecystectomy, Hip Replacement, Hysterectomy Additional Past Surgical Histo: bilat hip Alcohol Use: None Drug Use: None Adult General Chief Complaint Chief Complaint: GI PROBLEM HPI HPI Patient is a 76 year old woman, history of sickle cell dyscrasia, dependent on 2-3 L oxygen at baseline, hypertension, GI bleed, who presents to the emergency department with complaint of nausea, vomiting, abdominal pain, and diarrhea, with development of rashes of blood and clots from the rectum over the past 3 days intermittently. Patient states the symptoms of been going on intermittently for the past 3 days, states she is similar to previously which required blood transfusion and evaluation by Dr. Butler of GI. Patient denies vomiting any blood, states he's had multiple episodes of loose stool which then developed blood and clots, states that she is feeling nauseous and vomiting as well. Denies any sick contacts or exposures, states that similar symptoms occurred during her prior GI bleed. No injuries, no changes in medication. She has not take any blood thinners. She denies any chest pain, complains of mild shortness of breath and a mild headache as well. She states her hemoglobin usually runs between 7-8. She last received a transfusion a month ago. Her primary care provider is Dr. De La Torre. Review of Systems Review of Systems Constitutional: Denies fever or chills. [] Eyes: Denies change in visual acuity. [] HENT: Denies nasal congestion or sore throat. [] Respiratory: Denies cough or shortness of breath. [] Cardiovascular: Denies chest pain or edema. [] GI: Crampy abdominal pain, nausea, vomiting, bloody stools or diarrhea. : Denies dysuria. [] Musculoskeletal: Denies back pain or joint pain. [] Integument: Denies rash. [] Neurologic: Denies headache, focal weakness or sensory changes. [] Endocrine: Denies polyuria or polydipsia. [] Lymphatic: Denies swollen glands. [] Psychiatric: Denies depression or anxiety. [] Current Medications Current Medications Current Medications Medications (Trade) Dose Ordered Sig/Franchesca Start Time Stop Time Status Last Admin Dose Admin Fentanyl Citrate (Fentanyl 2ml Vial) 25 mcg PRN Q15MIN PRN 08/09/16 20:15 08/10/16 20:14 Furosemide (Lasix) 20 mg 1X PRN PRN 08/09/16 20:15 08/10/16 20:14 Octreotide Acetate 500 mcg/ Sodium Chloride 101 ml @ 0 mls/hr CONT PRN 08/09/16 20:45 Octreotide Acetate (SandoSTATIN) 100 mcg 1X ONCE 08/09/16 20:45 08/09/16 20:46 DC 08/09/16 21:12 100 MCG Pantoprazole Sodium 80 mg/ Sodium Chloride 100 ml @ 10 mls/hr 1X ONCE 08/09/16 20:45 08/10/16 06:44 Cancel Allergies Allergies Allergies Coded Allergies Type Severity Reaction Last Updated Verified Penicillins Allergy Intermediate Hives 06/10/16 Yes Physical Exam Physical Exam Constitutional: Well developed, well nourished, no acute distress, patient pale in appearance. [] HENT: Normocephalic, atraumatic, bilateral external ears normal, oropharynx moist, no oral exudates mucous membranes are pale,, nose normal. [] Eyes: PERRLA, EOMI, conjunctiva pale, no discharge. [] Neck: Normal range of motion, no tenderness, supple, no stridor. [] Cardiovascular:Heart rate regular rhythm, patient with 3-5 systolic murmur, no rubs or gallops. [] Lungs & Thorax: Diminished breath sounds at bases bilaterally, no wheezing, rhonchi, rales. No chest wall tenderness or crepitus. Abdomen: Bowel sounds normal, soft, mild initial patient in the periumbilical and lower abdomen, no rebound, no rigidity, no guarding, no masses, no pulsatile masses. [] Skin: Warm, dry, no erythema, no rash. [] Back: No tenderness, no CVA tenderness. [] Extremities: No tenderness, no cyanosis, no clubbing, ROM intact, no edema. Negative Homans sign. [] Neurologic: Alert and oriented X 3, normal motor function, normal sensory function, no focal deficits noted. [] Psychologic: Affect normal, judgement normal, mood normal. [] Rectal examination: Patient with a small amount of stool and dark red blood noted in vault. Current Patient Data Vital Signs Vital Signs Date Time Temp Pulse Resp B/P (MAP) Pulse Ox O2 Delivery O2 Flow Rate FiO2 08/09/16 21:29 60 16 102/38 (59) 95 Nasal Cannula 3.0 08/09/16 21:29 98.5 98.5 Lab Values Laboratory Tests Test 08/09/16 19:40 08/09/16 20:10 White Blood Count 7.4 x10^3/uL (4.0-11.0) Red Blood Count 1.41 x10^6/uL (3.50-5.40) L Hemoglobin 2.6 g/dL (12.0-15.5) *L Hematocrit 8.7 % (36.0-47.0) *L Mean Corpuscular Volume 62 fL (79-100) L Mean Corpuscular Hemoglobin 18 pg (25-35) L Mean Corpuscular Hemoglobin Concent 30 g/dL (31-37) L Red Cell Distribution Width 25.4 % (11.5-14.5) H Platelet Count 262 x10^3/uL (140-400) Neutrophils (%) (Auto) 80 % (31-73) H Lymphocytes (%) (Auto) 12 % (24-48) L Monocytes (%) (Auto) 6 % (0-9) Eosinophils (%) (Auto) 2 % (0-3) Basophils (%) (Auto) 0 % (0-3) Neutrophils # (Auto) 5.9 x10^3uL (1.8-7.7) Lymphocytes # (Auto) 0.9 x10^3/uL (1.0-4.8) L Monocytes # (Auto) 0.5 x10^3/uL (0.0-1.1) Eosinophils # (Auto) 0.1 x10^3/uL (0.0-0.7) Basophils # (Auto) 0.0 x10^3/uL (0.0-0.2) Segmented Neutrophils % 83 % (35-66) H Band Neutrophils % 1 % (0-9) Lymphocytes % 14 % (24-48) L Monocytes % 1 % (0-10) Eosinophils % 1 % (0-5) Nucleated Red Blood Cells 8 Platelet Estimate Adequate (ADEQUATE) Polychromasia Mod Hypochromasia Marked Poikilocytosis Marked Anisocytosis Marked Microcytosis Marked Target Cells Mod Prothrombin Time 22.4 SEC (11.7-14.0) H Prothrombin Time INR 2.1 (0.8-1.1) H PTT 36 SEC (24-38) Sodium Level 138 mmol/L (136-145) Potassium Level 4.9 mmol/L (3.5-5.1) Chloride Level 106 mmol/L (98-107) Carbon Dioxide Level 17 mmol/L (21-32) L Anion Gap 15 (6-14) H Blood Urea Nitrogen 51 mg/dL (7-20) H Creatinine 2.0 mg/dL (0.6-1.0) H Estimated GFR (Cockcroft-Gault) 29.5 BUN/Creatinine Ratio 26 (6-20) H Glucose Level 155 mg/dL (70-99) H Lactic Acid Level 6.2 mmol/L (0.4-2.0) *H Calcium Level 8.5 mg/dL (8.5-10.1) Total Bilirubin 0.4 mg/dL (0.2-1.0) Aspartate Amino Transferase (AST) 16 U/L (15-37) Alanine Aminotransferase (ALT) 19 U/L (14-59) Alkaline Phosphatase 97 U/L (46-116) Troponin I Quantitative 0.018 ng/mL (0.000-0.055) Total Protein 6.6 g/dL (6.4-8.2) Albumin 2.5 g/dL (3.4-5.0) L Albumin/Globulin Ratio 0.6 (1.0-1.7) L Stool Occult Blood Positive (NEG) Laboratory Tests 08/09/16 19:40 Laboratory Tests 08/09/16 19:40 EKG EKG EC: Sinus rhythm, heart rate 68 bpm, left axis deviation, contour normality is noted in the lateral leads, with mild ST depression noted in leads V4 through V6, no elevation identified, QTC of 469, TX of 234, QRS is 76, abnormal ECG, does not meet STEMI criteria. As interpreted by me. [] Radiology/Procedures Radiology/Procedures Acute abdominal series: 3 view: Patient with lung scarring noted bilaterally, no infiltrates, no effusion, cardiomegaly noted, mild flattening of the diaphragms, no pneumothorax, noted to have osteopenia, no free air, patient was stool and bowel gas throughout, no evidence of obstruction or air-fluid levels, patient with bilateral hip replacements in place. As interpreted by me. [] Course & Med Decision Making Course & Med Decision Making Pertinent Labs and Imaging studies reviewed. (See chart for details) Patient with heart rate in the 50s and 60s, blood pressures in the 1 teens to 100s, which is baseline for the patient, denying any symptoms currently in the ED aside from mild abdominal cramping. Review of records reveals patient previously had a GI bleed with an upper GI scope the revealed gastritis, laboratory studies in the ED reveal a hemoglobin of 2.26, baseline as stated is between 7-8. Patient's creatinine also elevated at 2.0, with elevated BUNs, concerning for potential upper GI bleed. Patient is agreeable to receiving transfusion in the emergency department, written consent obtained, 4 units of packed red cells were ordered, based on her critically low hemoglobin and her typical baseline. I did speak with Dr. Butler of [facility] who is evaluated the patient previously, he requested they a nuclear bleeding study be obtained to further elucidate the patient's symptoms and possible bleeding source based on her history and his previous evaluation. Patient was agreeable this plan, also admission to the hospital to the ICU for continued transfusion and supportive care. She is resting comfortably at this time after receiving pain medication, vital signs remained within normal limits, she is to rule out for IVs in place, is receiving octreotide, Protonix, and blood transfusion as stated, I dose of Lasix also ordered to be given between blood transfusion units. Findings as above discussed with Dr. De La Torre, the patient's primary care provider, patient was accepted his service as a full admission to the ICU with plan as stated. Patient transported for bleeding scan without issue from the emergency department. Dragon Disclaimer Dragon Disclaimer This electronic medical record was generated, in whole or in part, using a voice recognition dictation system. Departure Impression: Primary Impression: GI bleed Additional Impressions: Anemia Abdominal pain Sickle cell anemia Disposition: ADMITTED INPATIENT Admitting Physician: Melissa Avila Condition: IMPROVED Problem Qualifiers ERIN HOYOS DO August 09, 2016 23:13
[2016-08-10] VITALS (17 sets, daily range): BP systolic 114–169; BP diastolic 45–76
--- NOTE | 2016-08-10 00:12 | RAD ---
INDICATION: Gastrointestinal bleeding COMPARISON: None FINDINGS: 21 millicuries technetium 99 M tagged red blood cells were injected and scintigraphic images were obtained of the abdomen pelvis. There is expected radiotracer distribution throughout the vasculature as well as solid organs and heart. A definite region of increased radiotracer uptake within the bowel that increases with time is not seen at this time. IMPRESSION: The site of patient's clinically suspected gastrointestinal bleeding is not localized on this examination. If the patient has a repeat bout of gastrointestinal bleeding either delayed images or repeat exam could be obtained at a later time to assess for location of the bleed. Electronically signed by: Mario Alberto Sabillon (August 10, 2016 00:11:48)
[2016-08-10] MEDS: IV NORMAL SALINE 1000ML BAG 1,000 ML IV SCH ×3 (01:14→17:04)
--- NOTE | 2016-08-10 02:56 | ACF ---
Admit Criteria Forms Admit Criteria Forms Admit Criteria Forms GASTROINTESTINAL BLEEDING Clinical Indications for Inpatient Care (Place 'X' for any and all applicable criteria): Ongoing inpatient care may be indicated for gastrointestinal bleeding with ANY ONE of the following (4)(20)(21)(22)(23)(24): [x]I. Active bleeding (eg, fresh voluminous blood in emesis or nasogastric aspirate, or per rectum) [ ]II. Hemodynamic instability [ ]III. Anticoagulation therapy or coagulopathy ((eg, advanced liver disease, irreversible anticoagulation) [ ]IV. Ischemic colitis (22) [ ]V. Endoscopy showing arterial bleeding, adherent clot, nonbleeding visible vessel, varices, flat red spots, ulcer size greater than 2 cm, or portal hypertensive gastropathy [ ]. High-risk low platelet count [ ]VII. Anemia requiring inpatient care as indicated by ANY ONE of the following a)[ ] Cognitive impairment b)[ ] Syncope c)[ ] Heart failure d)[ ] Chest pain e)[ ] Dyspnea f)[ ] Other findings suggesting inadequate perfusion (eg, peripheral or myocardial ischemia, end organ dysfunction) [ ]VIII. High-risk low platelet count [ ]IX. Suspected variceal cause of bleeding as indicated by ANY ONE of the following(27)(28): a)[ ] Known varices b)[ ] Hepatomegaly or splenomegaly c)[ ] Ascites d)[ ] Jaundice or scleral icterus e)[ ] History of liver disease (eg, cirrhosis) f)[ ] Physical findings of portal hypertension (eg, caput medusa) g)[ ] Comorbid disorder indicating risk for portal vein thrombosis (eg , abdominal surgery, sepsis, shock, exchange transfusion, prior umbilical vein catheterization) Extended stay may be needed until ALL of the following are present(20)(17)(47): [ ]a) Hemodynamic stability [ ]b) No evidence of active bleeding (eg, stable Hematocrit) [ ]c) Platelet count, prothrombin time, and partial thromboplastin time acceptable for next level of care [ ]d) Surgical or other acute intervention not needed [ ]e) Oral hydration and diet tolerated The original [facility] [employer] content created by [email or web address] has been revised. The portions of the content which have been revised are identified through the use of italic text or in bold, and [facility] has neither reviewed nor approved the modified material. All other unmodified content is copyright [facility]. Please see references footnoted in the original [facility] edition 2016 HIRAM WILSON August 10, 2016 02:56
[2016-08-10 06:19] LABS: CALCIUM 8.3 mg/dL (8.5-10.1); CREATININE 2.1 mg/dL (0.6-1.0); GFR 27.9; POTASSIUM 5.7 mmol/L (3.5-5.1)
--- NOTE | 2016-08-10 06:19 | EKG ---
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
[2016-08-10 06:23] LABS: BASO % 0 % (0-3); EOS % 2 % (0-3); HEMATOCRIT 25.1 % (36.0-47.0); HEMOGLOBIN 8.5 g/dL (12.0-15.5); LYMPH # 0.7 x10^3/uL (1.0-4.8); LYMPH % 12 % (24-48); MEAN CORPUSCULAR HEMOGLOBIN 26 pg (25-35); MEAN CORPUSCULAR HGB CONC 34 g/dL (31-37); MEAN CORPUSCULAR VOLUME 75 fL (79-100); MONO % 9 % (0-9); NEUT % 77 % (31-73); PLATELET COUNT 220 x10^3/uL (140-400); RED BLOOD COUNT 3.34 x10^6/uL (3.50-5.40); RED CELL DISTRIBUTION WIDTH 24.7 % (11.5-14.5); WHITE BLOOD COUNT 5.8 x10^3/uL (4.0-11.0)
--- NOTE | 2016-08-10 07:38 | RAD ---
Portable chest, 08/10/2016: History: Check PICC placement Comparison is made to yesterday's study. A right PICC has been inserted extending to the level of the atriocaval junction. The heart is enlarged. There is calcific plaquing of the aorta. There are mild unchanged bibasilar pleural-parenchymal opacities. A component of scarring is suspected. No new pulmonary abnormality is seen. IMPRESSION: 1. Interval insertion of a right PICC in satisfactory position. 2. No other significant interval change.
--- NOTE | 2016-08-10 07:59 | RAD ---
Acute abdomen series with chest, 3 views, 08/09/2016: History: Abdominal pain, vomiting, diarrhea, GI tract bleeding Comparison is made to a study from 10/12/2015. Gas is present in large and small bowel in a nonspecific pattern. No free air seen in the abdomen. There is no evidence of organomegaly. Vascular calcifications are present. The heart is enlarged. The pulmonary vascularity is within normal limits. There appear to be scattered parenchymal scars. There are mild right basilar pleural-parenchymal opacities, slightly improved since the previous study. No significant amount of pleural fluid is seen. Bilateral total hip prostheses are in place. The bony structures are demineralized. There are scattered spurs in the spine. There is mild loss of height of multiple vertebral bodies. Moderate degenerative changes are present in the spine. IMPRESSION: 1. No acute abdominal abnormality is detected. 2. Cardiomegaly and aortic atherosclerosis. 3. Mild right basilar pleural-parenchymal opacities, probably due to scarring.
[2016-08-10] MEDS: PANTOPRAZOLE SODIUM IV 80 MG in IV NORMAL SALINE 100ML 100 ML IV SCH (08:29)
--- NOTE | 2016-08-10 08:52 | PDOC2 ---
GI CONSULT Reason For Consult: GI Bleed HPI: HPI: 76 y/o AA female previously evaluated by Dr. Butler for elevated LFTs, anemia, n/v, and hematochezia. PMH significant for SCA. Evaluated in ER for weakness ( "couldn't stand up"), vomiting, lower abd pain, and diarrhea (says brown stools) . Found to have Hgb 2.6, now 8.5 s/p transfusion. Lactic acid was elevated ( 6.2), now normal (1.1). BUN and Cr elevated (47, 2.1). Stool hemoccult was positive, GI bleed scan was negative. EGD in 05/[address] Butler showed atrophic gastritis but was otherwise normal. She reports previous normal colonoscopy 5-6 years ago. Denies hematemesis, hematochezia, melena. Feeling better this morning although has some RUQ discomfort. On octreotide and PPI drip in ICU. PMH: PMH: per HPI - additionally cholecystectomy, cataract extraction, tonsillectomy, appendectomy, hysterectomy, oophorectomy, salpingectomy, bilateral hip replacements, CVA, HTN, COPD, [place], CHF, h/o blood transfusions, CRI, anxiety, C Diff, A Fib/flutter, lactic acidosis, urosepsis, elevated LFTs (neg Hep panel 2015) FH: Family History: No pertinent hx Social History: Smoke: No ALCOHOL: none Drugs: None ROS: GEN: Denies fevers, chills, sweats HEENT: Denies blurred vision, sore throat CV: Denies chest pain RESP: Denies shortness of air, cough GI: Per HPI : Denies hematuria, dysuria ENDO: Denies weight changes NEURO: Denies confusion, dizziness MSK: +weakness SKIN: Denies jaundice, pruritus Vitals: Vitals: Vital Signs Date Time Temp Pulse Resp B/P (MAP) Pulse Ox O2 Delivery O2 Flow Rate FiO2 08/10/16 06:00 79 17 168/70 (102) 99 Nasal Cannula 3.0 08/10/16 03:34 98.4 98.4 Labs: Labs: Laboratory Tests Test 08/09/16 19:40 08/09/16 20:10 08/10/16 01:07 08/10/16 06:03 White Blood Count 7.4 x10^3/uL (4.0-11.0) 5.8 x10^3/uL (4.0-11.0) Red Blood Count 1.41 x10^6/uL (3.50-5.40) 3.34 x10^6/uL (3.50-5.40) Hemoglobin 2.6 g/dL (12.0-15.5) 8.5 g/dL (12.0-15.5) Hematocrit 8.7 % (36.0-47.0) 25.1 % (36.0-47.0) Mean Corpuscular Volume 62 fL (79-100) 75 fL (79-100) Mean Corpuscular Hemoglobin 18 pg (25-35) 26 pg (25-35) Mean Corpuscular Hemoglobin Concent 30 g/dL (31-37) 34 g/dL (31-37) Red Cell Distribution Width 25.4 % (11.5-14.5) 24.7 % (11.5-14.5) Platelet Count 262 x10^3/uL (140-400) 220 x10^3/uL (140-400) Neutrophils (%) (Auto) 80 % (31-73) 77 % (31-73) Lymphocytes (%) (Auto) 12 % (24-48) 12 % (24-48) Monocytes (%) (Auto) 6 % (0-9) 9 % (0-9) Eosinophils (%) (Auto) 2 % (0-3) 2 % (0-3) Basophils (%) (Auto) 0 % (0-3) 0 % (0-3) Neutrophils # (Auto) 5.9 x10^3uL (1.8-7.7) 4.4 x10^3uL (1.8-7.7) Lymphocytes # (Auto) 0.9 x10^3/uL (1.0-4.8) 0.7 x10^3/uL (1.0-4.8) Monocytes # (Auto) 0.5 x10^3/uL (0.0-1.1) 0.5 x10^3/uL (0.0-1.1) Eosinophils # (Auto) 0.1 x10^3/uL (0.0-0.7) 0.1 x10^3/uL (0.0-0.7) Basophils # (Auto) 0.0 x10^3/uL (0.0-0.2) 0.0 x10^3/uL (0.0-0.2) Segmented Neutrophils % 83 % (35-66) Band Neutrophils % 1 % (0-9) Lymphocytes % 14 % (24-48) Monocytes % 1 % (0-10) Eosinophils % 1 % (0-5) Nucleated Red Blood Cells 8 Platelet Estimate Adequate (ADEQUATE) Polychromasia Mod Hypochromasia Marked Poikilocytosis Marked Anisocytosis Marked Microcytosis Marked Target Cells Mod Prothrombin Time 22.4 SEC (11.7-14.0) Prothromb Time International Ratio 2.1 (0.8-1.1) Activated Partial Thromboplast Time 36 SEC (24-38) Sodium Level 138 mmol/L (136-145) 138 mmol/L (136-145) Potassium Level 4.9 mmol/L (3.5-5.1) 5.7 mmol/L (3.5-5.1) Chloride Level 106 mmol/L (98-107) 109 mmol/L (98-107) Carbon Dioxide Level 17 mmol/L (21-32) 21 mmol/L (21-32) Anion Gap 15 (6-14) 8 (6-14) Blood Urea Nitrogen 51 mg/dL (7-20) 47 mg/dL (7-20) Creatinine 2.0 mg/dL (0.6-1.0) 2.1 mg/dL (0.6-1.0) Estimated GFR (Cockcroft-Gault) 29.5 27.9 BUN/Creatinine Ratio 26 (6-20) Glucose Level 155 mg/dL (70-99) 142 mg/dL (70-99) Lactic Acid Level 6.2 mmol/L (0.4-2.0) 1.1 mmol/L (0.4-2.0) Calcium Level 8.5 mg/dL (8.5-10.1) 8.3 mg/dL (8.5-10.1) Total Bilirubin 0.4 mg/dL (0.2-1.0) Aspartate Amino Transf (AST/SGOT) 16 U/L (15-37) Alanine Aminotransferase (ALT/SGPT) 19 U/L (14-59) Alkaline Phosphatase 97 U/L (46-116) Troponin I Quantitative 0.018 ng/mL (0.000-0.055) Total Protein 6.6 g/dL (6.4-8.2) Albumin 2.5 g/dL (3.4-5.0) Albumin/Globulin Ratio 0.6 (1.0-1.7) Stool Occult Blood Positive (NEG) Allergies: Coded Allergies: Penicillins (Verified Allergy, Intermediate, Hives, 06/10/16) Medications: Current Medications Medications (Trade) Dose Ordered Sig/Franchesca Route PRN Reason Start Time Stop Time Status Last Admin Dose Admin Pantoprazole Sodium 80 mg/ Sodium Chloride 100 ml @ 10 mls/hr Q10H IV 08/09/16 20:45 08/10/16 08:29 Octreotide Acetate (SandoSTATIN) 100 mcg 1X ONCE IV 08/09/16 20:45 08/09/16 20:46 DC 08/09/16 21:12 Pantoprazole Sodium (Protonix Vial) 80 mg 1X ONCE IVP 08/09/16 21:30 08/09/16 21:31 DC 08/09/16 21:32 Sodium Chloride 1,000 ml @ 100 mls/hr Q10H IV 08/09/16 21:36 08/10/16 21:35 08/10/16 01:14 Imaging: Imaging: CXR 08/10/16 IMPRESSION: 1. Interval insertion of a right PICC in satisfactory position. 2. No other significant interval change. GI Bleed Scan 08/09/16 IMPRESSION: The site of patient's clinically suspected gastrointestinal bleeding is not localized on this examination. If the patient has a repeat bout of gastrointestinal bleeding either delayed images or repeat exam could be obtained at a later time to assess for location of the bleed. Acute Abd Series 08/09/16 IMPRESSION: 1. No acute abdominal abnormality is detected. 2. Cardiomegaly and aortic atherosclerosis. 3. Mild right basilar pleural-parenchymal opacities, probably due to scarring. PE: GEN: NAD, was sleep HEENT: Atraumatic, PERRL LUNGS: CTAB anteriorly HEART: RRR ABD: NABS, S/ND/NT EXTREMITY: No edema, BLE cool SKIN: No rashes, no jaundice NEURO/PSYCH: A & O 3 A/P: A/P: Anemia, weakness -h/o SCA -Hgb 2.6 in ER, now 8.5 -hemoccult positive stool -EGD w/ atrophic gastritis 2 months ago, reports last colonoscopy ~5 years ago Vomiting, abd pain, diarrhea - resolved -- Will discuss colonoscopy - inpt vs outpt w/ pt and proceed w/ diet/prep accordingly. Okay to stop octreotide and PPI drips. CRISTOBAL DUNCAN August 10, 2016 08:52
[2016-08-10] MEDS: PANTOPRAZOLE 40 MG TABLET.DR. PO SCH (09:30)
[2016-08-10] MEDS: CHOLECALCIFEROL (VITAMIN D3) 1,000 UNIT TABLET PO SCH (10:00)
[2016-08-10] MEDS: METOPROLOL TART IMMED RELEASE 25 MG TABLET. PO SCH ×2 (11:35→21:00)
[2016-08-10] MEDS ORDERED: POLYETHYLENE GLYCOL 3350 238 GM POWDER PO ONE (15:00)
[2016-08-10] MEDS ORDERED: BISACODYL 5 MG TABLET.DR. PO ONE (15:00)
--- NOTE | 2016-08-10 17:22 | PDOC ---
Provider Note Provider Note H&P dictated # [id number] GALE ABDULLAHI MD August 10, 2016 17:22
[2016-08-10 17:51] LABS: % SAT IRON 11 % (15-34); IRON,SERUM 33 ug/dL (50-170)
--- NOTE | 2016-08-10 20:12 | HP ---
ADMIT DATE: 08/10/2016 ADMISSION DIAGNOSIS: Profound anemia. HISTORY OF PRESENT ILLNESS: This is a 76-year-old -[place] female who came to the Emergency Room because of weakness. She was unable to stand up. She has had some recent vomiting, some recent lower abdominal pain and some recent diarrhea. She was found to be quite anemic with hemoglobin less than 3. She was admitted and has been transfused, monitored overnight in the intensive care unit. She is feeling much better. GI consultation has been requested. She did have a bleeding scan overnight that was unremarkable. She was positive for stool occult blood. She is not known to have a significant GI history. She has ____ atrophic gastritis noted on prior EGD. She normally suffers from sickle cell anemia and uses oxygen chronically. She really has not had any significant shortness of breath and she denies having any chest pain or other cardiac symptoms, which is surprising. She does have a mild headache. She does not take any anticoagulant agents. PAST MEDICAL HISTORY: Osteoarthritis, sickle cell, COPD, CHF, hypertension, pulmonary hypertension, and chronic respiratory failure with oxygen dependent. PAST SURGICAL HISTORY: Include appendectomy, cholecystectomy, hip replacement bilaterally and hysterectomy. FAMILY HISTORY: Noncontributory. SOCIAL HISTORY: No tobacco or alcohol. She has been independent in her ADLs. REVIEW OF SYSTEMS: HEENT: Negative for change in vision or hearing. CONSTITUTIONAL: Negative for weight loss. GASTROINTESTINAL: As above. CARDIAC: Negative for chest pain. PULMONARY: Some mild recent shortness of breath. GASTROINTESTINAL: She chronically uses oxygen. GENITOURINARY: She is still ____ making urine. MUSCULOSKELETAL: No acute joint pains. No falls and generalized weakness. EXTREMITIES: Her feet are felt cold. She has not noticed any swelling. PSYCHIATRIC: No memory issues, depression or anxiety. PHYSICAL EXAMINATION: VITAL SIGNS: Her blood pressure has been elevated 168/70, pulse has ranged from 52-79. She has been afebrile, oxygen on 3 liters had been 100%. GENERAL: She is alert and oriented, wearing nasal cannula oxygen. Mucous membranes seem a little dry. NECK: Supple. HEART: Regular rate and rhythm with a 2/6 systolic murmur. LUNGS: Clear anteriorly. ABDOMEN: Little bit tender mainly in the left lower quadrant area. Bowel sounds are present. She is mildly distended. EXTREMITIES: Cool to touch, but there is no clubbing, cyanosis or peripheral edema. She is able to raise her arms and she is not showing any focal profound weakness. LABORATORY DATA: Hemoglobin has gone up from 2.6 to 8.5, hematocrit has increased from 8.7 to 25.1, platelets are normal. There is moderate polychromasia, marked hypochromasia, marked poikilocytosis, marked anisocytosis and marked microcytosis with moderate target cells. INR is 2.1. Chemistries: Potassium has gone up from 4.9 to 5.7, chloride is 109. BUN has dropped from 51 to 47. Creatinine stable at 2.1. Her lactic acid was 6.2 initially, has dropped to 1.1. Troponin 0.018, albumin 2.5, and glucose 155. Stool occult blood is positive. Blood Bank shows her to be B positive. Acute abdominal series did not show any acute abnormality, cardiomegaly and aortic atherosclerosis are noted, though. GI bleeding scan did not show any obvious bleeding site. IMAGING STUDIES: Chest x-ray shows PICC line in satisfactory position. ASSESSMENT: 1. Acute profound anemia with heme positive stool, without bleeding scan evidence of source. She is status post transfusion, hemoglobin is up from 2.6 to over 8, that is close to her baseline. 2. Sickle cell anemia. 3. Hypertension. 4. Hyperkalemia. PLAN: Her bumetanide will be continued, which should help lower her potassium. Her potassium supplement will be held, metoprolol will be continued for her blood pressure. We will hold on her diltiazem for now. Continue hydrocodone APAP p.r.n. for pain. GI has been consulted and they are following her. She is stable to transfer out of the intensive care unit to a cardiac monitored bed with scheduled endoscopies for tomorrow. Mehdi ABDULLAHI MD DR: KATE/cyril JOB#: [id number] / [id number]
[2016-08-11] VITALS (7 sets, daily range): BP systolic 154–183; BP diastolic 58–83
[2016-08-11] MEDS: IV RINGERS,LACTATED 1000ML 1,000 ML IV SCH ×3 (07:00→16:14)
[2016-08-11] MEDS: PANTOPRAZOLE 40 MG TABLET.DR. PO SCH (07:30)
[2016-08-11 08:08] LABS: ALBUMIN 2.6 g/dL (3.4-5.0); ALBUMIN/GLOBULIN RATIO 0.6 (1.0-1.7); CALCIUM 8.8 mg/dL (8.5-10.1); CREATININE 1.7 mg/dL (0.6-1.0); GFR 35.5; POTASSIUM 4.7 mmol/L (3.5-5.1); TOTAL PROTEIN 6.8 g/dL (6.4-8.2)
[2016-08-11 08:14] LABS: BASO % 1 % (0-3); EOS % 6 % (0-3); HEMATOCRIT 25.7 % (36.0-47.0); HEMOGLOBIN 8.8 g/dL (12.0-15.5); LYMPH # 0.6 x10^3/uL (1.0-4.8); LYMPH % 7 % (24-48); MEAN CORPUSCULAR HEMOGLOBIN 26 pg (25-35); MEAN CORPUSCULAR HGB CONC 34 g/dL (31-37); MEAN CORPUSCULAR VOLUME 75 fL (79-100); MONO % 11 % (0-9); NEUT % 75 % (31-73); PLATELET COUNT 231 x10^3/uL (140-400); RED BLOOD COUNT 3.43 x10^6/uL (3.50-5.40); RED CELL DISTRIBUTION WIDTH 25.6 % (11.5-14.5)
--- NOTE | 2016-08-11 08:49 | PDOC ---
PROGRESS NOTES Subjective Subjective she feels fine, has finished prep for endoscopies, mouth dry Objective Objective Vital Signs Date Time Temp Pulse Resp B/P (MAP) Pulse Ox O2 Delivery O2 Flow Rate FiO2 08/11/16 07:00 97.9 54 16 173/58 (96) 99 Room Air 97.9 08/10/16 20:00 3.0 Intake and Output 08/11/16 07:00 Intake Total 2460 ml Output Total 503 ml Balance 1957 ml Intake Oral 1460 ml IV Total 1000 ml Output Urine Total 500 ml Urine/Stool Mix 3 ml # Bowel Movements 1 Physical Exam Abdomen: Normal bowel sounds, Soft Heart: Regular rate Extremities: No clubbing, No cyanosis General: Alert, Oriented X3, Cooperative HEENT: Atraumatic Lungs: Clear to auscultation Neck: Supple Neuro: Normal speech Psych/Mental Status: Mental status NL Skin: No breakdown Assessment Assessment Problems Medical Problems: (1) Abdominal pain Status: Acute (2) Anemia Status: Acute (3) GI bleed Status: Acute (4) Sickle cell anemia Status: Acute Plan Plan of Care IV iron, await endoscopies, monitor CBC Comment Review of Relevant I have reviewed the following items zaire (where applicable) has been applied. Labs Laboratory Tests Test 08/09/16 19:40 08/09/16 20:10 08/09/16 23:30 08/10/16 01:07 White Blood Count 7.4 x10^3/uL (4.0-11.0) Red Blood Count 1.41 x10^6/uL (3.50-5.40) Hemoglobin 2.6 g/dL (12.0-15.5) Hematocrit 8.7 % (36.0-47.0) Mean Corpuscular Volume 62 fL (79-100) Mean Corpuscular Hemoglobin 18 pg (25-35) Mean Corpuscular Hemoglobin Concent 30 g/dL (31-37) Red Cell Distribution Width 25.4 % (11.5-14.5) Platelet Count 262 x10^3/uL (140-400) Neutrophils (%) (Auto) 80 % (31-73) Lymphocytes (%) (Auto) 12 % (24-48) Monocytes (%) (Auto) 6 % (0-9) Eosinophils (%) (Auto) 2 % (0-3) Basophils (%) (Auto) 0 % (0-3) Neutrophils # (Auto) 5.9 x10^3uL (1.8-7.7) Lymphocytes # (Auto) 0.9 x10^3/uL (1.0-4.8) Monocytes # (Auto) 0.5 x10^3/uL (0.0-1.1) Eosinophils # (Auto) 0.1 x10^3/uL (0.0-0.7) Basophils # (Auto) 0.0 x10^3/uL (0.0-0.2) Segmented Neutrophils % 83 % (35-66) Band Neutrophils % 1 % (0-9) Lymphocytes % 14 % (24-48) Monocytes % 1 % (0-10) Eosinophils % 1 % (0-5) Nucleated Red Blood Cells 8 Platelet Estimate Adequate (ADEQUATE) Polychromasia Mod Hypochromasia Marked Poikilocytosis Marked Anisocytosis Marked Microcytosis Marked Target Cells Mod Prothrombin Time 22.4 SEC (11.7-14.0) Prothromb Time International Ratio 2.1 (0.8-1.1) Activated Partial Thromboplast Time 36 SEC (24-38) Sodium Level 138 mmol/L (136-145) Potassium Level 4.9 mmol/L (3.5-5.1) Chloride Level 106 mmol/L (98-107) Carbon Dioxide Level 17 mmol/L (21-32) Anion Gap 15 (6-14) Blood Urea Nitrogen 51 mg/dL (7-20) Creatinine 2.0 mg/dL (0.6-1.0) Estimated GFR (Cockcroft-Gault) 29.5 BUN/Creatinine Ratio 26 (6-20) Glucose Level 155 mg/dL (70-99) Lactic Acid Level 6.2 mmol/L (0.4-2.0) 1.1 mmol/L (0.4-2.0) Calcium Level 8.5 mg/dL (8.5-10.1) Total Bilirubin 0.4 mg/dL (0.2-1.0) Aspartate Amino Transf (AST/SGOT) 16 U/L (15-37) Alanine Aminotransferase (ALT/SGPT) 19 U/L (14-59) Alkaline Phosphatase 97 U/L (46-116) Troponin I Quantitative 0.018 ng/mL (0.000-0.055) Total Protein 6.6 g/dL (6.4-8.2) Albumin 2.5 g/dL (3.4-5.0) Albumin/Globulin Ratio 0.6 (1.0-1.7) Stool Occult Blood Positive (NEG) Nasal Screen MRSA (PCR) Negative (Negative) Test 08/10/16 06:03 08/11/16 07:20 White Blood Count 5.8 x10^3/uL (4.0-11.0) 8.0 x10^3/uL (4.0-11.0) Red Blood Count 3.34 x10^6/uL (3.50-5.40) 3.43 x10^6/uL (3.50-5.40) Hemoglobin 8.5 g/dL (12.0-15.5) 8.8 g/dL (12.0-15.5) Hematocrit 25.1 % (36.0-47.0) 25.7 % (36.0-47.0) Mean Corpuscular Volume 75 fL (79-100) 75 fL (79-100) Mean Corpuscular Hemoglobin 26 pg (25-35) 26 pg (25-35) Mean Corpuscular Hemoglobin Concent 34 g/dL (31-37) 34 g/dL (31-37) Red Cell Distribution Width 24.7 % (11.5-14.5) 25.6 % (11.5-14.5) Platelet Count 220 x10^3/uL (140-400) 231 x10^3/uL (140-400) Neutrophils (%) (Auto) 77 % (31-73) 75 % (31-73) Lymphocytes (%) (Auto) 12 % (24-48) 7 % (24-48) Monocytes (%) (Auto) 9 % (0-9) 11 % (0-9) Eosinophils (%) (Auto) 2 % (0-3) 6 % (0-3) Basophils (%) (Auto) 0 % (0-3) 1 % (0-3) Neutrophils # (Auto) 4.4 x10^3uL (1.8-7.7) 6.0 x10^3uL (1.8-7.7) Lymphocytes # (Auto) 0.7 x10^3/uL (1.0-4.8) 0.6 x10^3/uL (1.0-4.8) Monocytes # (Auto) 0.5 x10^3/uL (0.0-1.1) 0.9 x10^3/uL (0.0-1.1) Eosinophils # (Auto) 0.1 x10^3/uL (0.0-0.7) 0.5 x10^3/uL (0.0-0.7) Basophils # (Auto) 0.0 x10^3/uL (0.0-0.2) 0.0 x10^3/uL (0.0-0.2) Sodium Level 138 mmol/L (136-145) 141 mmol/L (136-145) Potassium Level 5.7 mmol/L (3.5-5.1) 4.7 mmol/L (3.5-5.1) Chloride Level 109 mmol/L (98-107) 111 mmol/L (98-107) Carbon Dioxide Level 21 mmol/L (21-32) 21 mmol/L (21-32) Anion Gap 8 (6-14) 9 (6-14) Blood Urea Nitrogen 47 mg/dL (7-20) 36 mg/dL (7-20) Creatinine 2.1 mg/dL (0.6-1.0) 1.7 mg/dL (0.6-1.0) Estimated GFR (Cockcroft-Gault) 27.9 35.5 Glucose Level 142 mg/dL (70-99) 98 mg/dL (70-99) Calcium Level 8.3 mg/dL (8.5-10.1) 8.8 mg/dL (8.5-10.1) Iron Level 33 ug/dL (50-170) Total Iron Binding Capacity 309 ug/dL (250-450) Iron Saturation 11 % (15-34) Vitamin B12 Level 548 pg/mL (247-911) BUN/Creatinine Ratio 21 (6-20) Total Bilirubin 1.0 mg/dL (0.2-1.0) Aspartate Amino Transf (AST/SGOT) 19 U/L (15-37) Alanine Aminotransferase (ALT/SGPT) 12 U/L (14-59) Alkaline Phosphatase 97 U/L (46-116) Total Protein 6.8 g/dL (6.4-8.2) Albumin 2.6 g/dL (3.4-5.0) Albumin/Globulin Ratio 0.6 (1.0-1.7) Laboratory Tests Test 08/11/16 07:20 White Blood Count 8.0 x10^3/uL (4.0-11.0) Red Blood Count 3.43 x10^6/uL (3.50-5.40) Hemoglobin 8.8 g/dL (12.0-15.5) Hematocrit 25.7 % (36.0-47.0) Mean Corpuscular Volume 75 fL (79-100) Mean Corpuscular Hemoglobin 26 pg (25-35) Mean Corpuscular Hemoglobin Concent 34 g/dL (31-37) Red Cell Distribution Width 25.6 % (11.5-14.5) Platelet Count 231 x10^3/uL (140-400) Neutrophils (%) (Auto) 75 % (31-73) Lymphocytes (%) (Auto) 7 % (24-48) Monocytes (%) (Auto) 11 % (0-9) Eosinophils (%) (Auto) 6 % (0-3) Basophils (%) (Auto) 1 % (0-3) Neutrophils # (Auto) 6.0 x10^3uL (1.8-7.7) Lymphocytes # (Auto) 0.6 x10^3/uL (1.0-4.8) Monocytes # (Auto) 0.9 x10^3/uL (0.0-1.1) Eosinophils # (Auto) 0.5 x10^3/uL (0.0-0.7) Basophils # (Auto) 0.0 x10^3/uL (0.0-0.2) Sodium Level 141 mmol/L (136-145) Potassium Level 4.7 mmol/L (3.5-5.1) Chloride Level 111 mmol/L (98-107) Carbon Dioxide Level 21 mmol/L (21-32) Anion Gap 9 (6-14) Blood Urea Nitrogen 36 mg/dL (7-20) Creatinine 1.7 mg/dL (0.6-1.0) Estimated GFR (Cockcroft-Gault) 35.5 BUN/Creatinine Ratio 21 (6-20) Glucose Level 98 mg/dL (70-99) Calcium Level 8.8 mg/dL (8.5-10.1) Total Bilirubin 1.0 mg/dL (0.2-1.0) Aspartate Amino Transf (AST/SGOT) 19 U/L (15-37) Alanine Aminotransferase (ALT/SGPT) 12 U/L (14-59) Alkaline Phosphatase 97 U/L (46-116) Total Protein 6.8 g/dL (6.4-8.2) Albumin 2.6 g/dL (3.4-5.0) Albumin/Globulin Ratio 0.6 (1.0-1.7) Medications Current Medications Furosemide (Lasix) 20 mg 1X PRN PRN IV Blood transfusion; Start 08/09/16 at 20: 15; Stop 08/10/16 at 20:14; Status DC Fentanyl Citrate (Fentanyl 2ml Vial) 25 mcg PRN Q15MIN PRN IV PAIN GREATER THAN 3/10; Start 08/09/16 at 20:15; Stop 08/10/16 at 07:13; Status DC Pantoprazole Sodium 80 mg/ Sodium Chloride 100 ml @ 10 mls/hr Q10H IV Last administered on 08/10/16 08:29; Start 08/09/16 at 20:45; Stop 08/10/16 at 09:02 ; Status DC Pantoprazole Sodium 80 mg/ Sodium Chloride 100 ml @ 10 mls/hr 1X ONCE IV ; Start 08/09/16 at 20:45; Stop 08/10/16 at 06:44; Status Cancel Octreotide Acetate 500 mcg/ Sodium Chloride 101 ml @ 0 mls/hr CONT PRN IV SEE I /O RECORD; Start 08/09/16 at 20:45; Stop 08/10/16 at 09:02; Status DC Octreotide Acetate (SandoSTATIN) 100 mcg 1X ONCE IV Last administered on 21:12; Start 08/09/16 at 20:45; Stop 08/10/16 at 09:01; Status DC Pantoprazole Sodium (Protonix Vial) 80 mg 1X ONCE IVP Last administered on 21:32; Start 08/09/16 at 21:30; Stop 08/10/16 at 09:01; Status DC Ondansetron HCl (Zofran) 4 mg PRN Q8HRS PRN IV NAUSEA/VOMITING; Start 08/09/16 at 21:45; Stop 08/10/16 at 21:44; Status DC Fentanyl Citrate (Fentanyl 2ml Vial) 50 mcg PRN Q2HR PRN IV SEVERE PAIN; Start 08/09/16 at 21:45; Stop 08/10/16 at 21:44; Status DC Sodium Chloride 1,000 ml @ 100 mls/hr Q10H IV Last administered on 08/10/16 17:04; Start 08/09/16 at 21:36; Stop 08/10/16 at 21:35; Status DC Acetaminophen (Tylenol) 650 mg PRN Q4HRS PRN PO FEVER; Start 08/09/16 at 21:45 ; Stop 08/10/16 at 21:44; Status DC Pantoprazole Sodium (Protonix) 40 mg DAILYAC PO ; Start 08/10/16 at 09:30 Bumetanide (Bumex) 1 mg DAILY PO ; Start 08/11/16 at 09:00 Acetaminophen/ Hydrocodone Bitart (Lortab 7.5/325) 1 tab PRN Q6HRS PRN PO PAIN ; Start 08/10/16 at 09:15 Metoprolol Tartrate (Lopressor) 25 mg BID PO Last administered on 08/10/16 11: 35; Start 08/10/16 at 10:00 Vitamin D (Vitamin D3) 1,000 unit DAILY PO ; Start 08/10/16 at 10:00 Bisacodyl (Dulcolax Tab) 10 mg 1X ONCE PO Last administered on 08/10/16 17:00 ; Start 08/10/16 at 15:00; Stop 08/10/16 at 15:01; Status DC Polyethylene Glycol (miraLAX Powder BULK BOTTLE) 238 gm 1X ONCE PO Last administered on 08/10/16 17:01; Start 08/10/16 at 15:00; Stop 08/10/16 at 15:01 ; Status DC Ringer's Solution 1,000 ml @ 50 mls/hr Q20H IV ; Start 08/11/16 at 07:00; Stop 08/11/16 at 18:59 Active Scripts Active Metoprolol Tartrate 25 Mg Tablet 25 Mg PO BID Diltiazem 24HR Cd (Diltiazem Hcl) 240 Mg Cap.er.24h 240 Mg PO QHS Bumetanide 1 Mg Tablet 1 Mg PO DAILY Reported Tylenol (Acetaminophen) 325 Mg Tablet 650 Mg PO Q6-8HRS PRN Potassium Chloride 10 Meq Capsule.er 1 Cap PO DAILY Hydrocodone-Apap 7.5-325 (Hydrocodone Bit/Acetaminophen) 1 Each Tablet 1 Tab PO PRN Q6HRS PRN Vitamin D3 1,000 Unit Tablet (Ca Cmb No.1/Vit D3/B-6/Fa/B12) 1 Each Tablet 1 Each PO DAILY Vitals/I & O Vital Sign - Last 24 Hours 08/10/16 08/10/16 08/10/16 08/10/16 09:00 11:35 12:00 16:00 Temp 98.3 98.4 98.3 98.4 Pulse 67 66 79 79 Resp 14 14 22 B/P (MAP) 160/69 (99) 164/69 169/74 (105) 153/61 (91) Pulse Ox 100 100 100 O2 Delivery Nasal Cannula Nasal Cannula Nasal Cannula O2 Flow Rate 3.0 3.0 3.0 08/10/16 08/10/16 08/10/16 08/11/16 19:00 20:00 21:00 00:00 Temp 98.8 98.6 98.8 98.6 Pulse 50 50 65 Resp 16 18 B/P (MAP) 149/71 (97) 162/83 (109) Pulse Ox 97 98 O2 Delivery Nasal Cannula Nasal Cannula O2 Flow Rate 3.0 3.0 08/11/16 08/11/16 03:00 07:00 Temp 98.6 97.9 98.6 97.9 Pulse 51 54 Resp 18 16 B/P (MAP) 155/75 (101) 173/58 (96) Pulse Ox 98 99 O2 Delivery Room Air Intake and Output 08/10/16 08/10/16 08/11/16 15:00 23:00 07:00 Intake Total 1900 ml 560 ml Output Total 500 ml 3 ml Balance 1400 ml 557 ml GALE ABDULLAHI MD August 11, 2016 08:49
[2016-08-11] MEDS ORDERED: IRON SUCROSE COMPLEX 200 MG in IV NORMAL SALINE 100ML 100 ML IV ONE (09:00)
[2016-08-11] MEDS: METOPROLOL TART IMMED RELEASE 25 MG TABLET. PO SCH (09:00)
[2016-08-11] MEDS: BUMETANIDE 1 MG TABLET. PO SCH (09:00)
[2016-08-11] MEDS: CHOLECALCIFEROL (VITAMIN D3) 1,000 UNIT TABLET PO SCH (09:00)
[2016-08-11] MEDS ORDERED: PROPOFOL 20 ML IV ONE (17:02)
--- NOTE | 2016-08-11 17:29 | PDOC4 ---
Operative Note Operative Note Colonoscopy with polypectomy Meds anesthesia per propofol Pre-op dx acute blood loss anemia Post-op dx internal hemorrhoids sigmoid diverticulosis s/p polypectomy transverse colon polyp Plan advance diet most likely self-limited diverticular bleed SHAVONNE SAUCEDO MD August 11, 2016 17:29
[2016-08-12] MEDS: METOPROLOL TART IMMED RELEASE 25 MG TABLET. PO SCH ×2 (01:47→09:00)
[2016-08-12] MEDS: HYDROcodone/APAP 7.5/325MG 1 TAB TABLET PO PRN ×2 (01:48→08:11)
[2016-08-12 06:45] LABS: BASO % 0 % (0-3); EOS % 6 % (0-3); HEMATOCRIT 25.1 % (36.0-47.0); HEMOGLOBIN 7.9 g/dL (12.0-15.5); LYMPH # 0.5 x10^3/uL (1.0-4.8); LYMPH % 6 % (24-48); MEAN CORPUSCULAR HEMOGLOBIN 24 pg (25-35); MEAN CORPUSCULAR HGB CONC 31 g/dL (31-37); MEAN CORPUSCULAR VOLUME 78 fL (79-100); MONO % 10 % (0-9); NEUT % 78 % (31-73); PLATELET COUNT 191 x10^3/uL (140-400); RED BLOOD COUNT 3.23 x10^6/uL (3.50-5.40); RED CELL DISTRIBUTION WIDTH 26.4 % (11.5-14.5); WHITE BLOOD COUNT 8.8 x10^3/uL (4.0-11.0)
[2016-08-12 07:00] VITALS: BP 146/50
[2016-08-12] MEDS: PANTOPRAZOLE 40 MG TABLET.DR. PO SCH (08:10)
[2016-08-12] MEDS: CHOLECALCIFEROL (VITAMIN D3) 1,000 UNIT TABLET PO SCH (08:10)
[2016-08-12] MEDS: BUMETANIDE 1 MG TABLET. PO SCH (08:10)
--- NOTE | 2016-08-12 10:49 | PDOC ---
Subjective: Subjective: Feeling much better. No pain or n/v. Also denies bleeding. Tolerating PO. Objective: Vital Signs: Vital Signs Date Time Temp Pulse Resp B/P (MAP) Pulse Ox O2 Delivery O2 Flow Rate FiO2 08/12/16 07:00 98.1 51 16 146/50 (82) 99 Nasal Cannula 3.0 98.1 Labs: Laboratory Tests Test 08/12/16 05:00 White Blood Count 8.8 x10^3/uL Red Blood Count 3.23 x10^6/uL Hemoglobin 7.9 g/dL Hematocrit 25.1 % Mean Corpuscular Volume 78 fL Mean Corpuscular Hemoglobin 24 pg Mean Corpuscular Hemoglobin Concent 31 g/dL Red Cell Distribution Width 26.4 % Platelet Count 191 x10^3/uL Neutrophils (%) (Auto) 78 % Lymphocytes (%) (Auto) 6 % Monocytes (%) (Auto) 10 % Eosinophils (%) (Auto) 6 % Basophils (%) (Auto) 0 % Neutrophils # (Auto) 6.9 x10^3uL Lymphocytes # (Auto) 0.5 x10^3/uL Monocytes # (Auto) 0.9 x10^3/uL Eosinophils # (Auto) 0.5 x10^3/uL Basophils # (Auto) 0.0 x10^3/uL Imaging: Colonoscopy 08/11/16: internal hemorrhoids, sigmoid diverticulosis, s/p polypectomy transverse colon polyp PE: GEN: NAD, on commode LUNGS: CTAB HEART: RRR ABD: S/ND/NT NEURO/PSYCH: A & O 3 A/P: Anemia -h/o SCA -critical Hgb 2.6 in ER w/ heme positive stool, up to 8s after transfusions, now 7.9 -also received IV iron yesterday -EGD w/ atrophic gastritis 2 months ago, colonoscopy yesterday as above Vomiting, abd pain, diarrhea - resolved -- Improved/stable GI-adrian, possible diverticular bleed. Follow-up w/ Dr. Butler's office re: path results. CRISTOBAL DUNCAN August 12, 2016 10:49
[2016-08-12 11:06] VITALS: BP 155/60
[2016-08-12 14:44] VITALS: BP 153/63
[2016-08-12] MEDS ORDERED: PANT40TA5 PO (15:14)
--- NOTE | 2016-08-12 15:20 | PDOC3 ---
Discharge Summary Visit Information Date of Admission: August 09, 2016 Date of Discharge: August 12, 2016 Final Diagnosis Assessment (1) Abdominal pain Status: Acute (2) Anemia Status: Acute (3) GI bleed Status: Acute (4) Sickle cell anemia Status: Acute Brief Hospital Course Allergies Allergies Coded Allergies Type Severity Reaction Last Updated Verified Penicillins Allergy Intermediate Hives 08/11/16 Yes Vital Signs Vital Signs Date Time Temp Pulse Resp B/P (MAP) Pulse Ox O2 Delivery O2 Flow Rate FiO2 08/12/16 14:44 97.9 75 16 153/63 (93) 95 Nasal Cannula 3.0 97.9 Lab Results Laboratory Tests Test 08/11/16 07:20 08/12/16 05:00 White Blood Count 8.0 x10^3/uL (4.0-11.0) 8.8 x10^3/uL (4.0-11.0) Red Blood Count 3.43 x10^6/uL (3.50-5.40) 3.23 x10^6/uL (3.50-5.40) Hemoglobin 8.8 g/dL (12.0-15.5) 7.9 g/dL (12.0-15.5) Hematocrit 25.7 % (36.0-47.0) 25.1 % (36.0-47.0) Mean Corpuscular Volume 75 fL (79-100) 78 fL (79-100) Mean Corpuscular Hemoglobin 26 pg (25-35) 24 pg (25-35) Mean Corpuscular Hemoglobin Concent 34 g/dL (31-37) 31 g/dL (31-37) Red Cell Distribution Width 25.6 % (11.5-14.5) 26.4 % (11.5-14.5) Platelet Count 231 x10^3/uL (140-400) 191 x10^3/uL (140-400) Neutrophils (%) (Auto) 75 % (31-73) 78 % (31-73) Lymphocytes (%) (Auto) 7 % (24-48) 6 % (24-48) Monocytes (%) (Auto) 11 % (0-9) 10 % (0-9) Eosinophils (%) (Auto) 6 % (0-3) 6 % (0-3) Basophils (%) (Auto) 1 % (0-3) 0 % (0-3) Neutrophils # (Auto) 6.0 x10^3uL (1.8-7.7) 6.9 x10^3uL (1.8-7.7) Lymphocytes # (Auto) 0.6 x10^3/uL (1.0-4.8) 0.5 x10^3/uL (1.0-4.8) Monocytes # (Auto) 0.9 x10^3/uL (0.0-1.1) 0.9 x10^3/uL (0.0-1.1) Eosinophils # (Auto) 0.5 x10^3/uL (0.0-0.7) 0.5 x10^3/uL (0.0-0.7) Basophils # (Auto) 0.0 x10^3/uL (0.0-0.2) 0.0 x10^3/uL (0.0-0.2) Sodium Level 141 mmol/L (136-145) Potassium Level 4.7 mmol/L (3.5-5.1) Chloride Level 111 mmol/L (98-107) Carbon Dioxide Level 21 mmol/L (21-32) Anion Gap 9 (6-14) Blood Urea Nitrogen 36 mg/dL (7-20) Creatinine 1.7 mg/dL (0.6-1.0) Estimated GFR (Cockcroft-Gault) 35.5 BUN/Creatinine Ratio 21 (6-20) Glucose Level 98 mg/dL (70-99) Calcium Level 8.8 mg/dL (8.5-10.1) Total Bilirubin 1.0 mg/dL (0.2-1.0) Aspartate Amino Transf (AST/SGOT) 19 U/L (15-37) Alanine Aminotransferase (ALT/SGPT) 12 U/L (14-59) Alkaline Phosphatase 97 U/L (46-116) Total Protein 6.8 g/dL (6.4-8.2) Albumin 2.6 g/dL (3.4-5.0) Albumin/Globulin Ratio 0.6 (1.0-1.7) Laboratory Tests Test 08/12/16 05:00 White Blood Count 8.8 x10^3/uL (4.0-11.0) Red Blood Count 3.23 x10^6/uL (3.50-5.40) Hemoglobin 7.9 g/dL (12.0-15.5) Hematocrit 25.1 % (36.0-47.0) Mean Corpuscular Volume 78 fL (79-100) Mean Corpuscular Hemoglobin 24 pg (25-35) Mean Corpuscular Hemoglobin Concent 31 g/dL (31-37) Red Cell Distribution Width 26.4 % (11.5-14.5) Platelet Count 191 x10^3/uL (140-400) Neutrophils (%) (Auto) 78 % (31-73) Lymphocytes (%) (Auto) 6 % (24-48) Monocytes (%) (Auto) 10 % (0-9) Eosinophils (%) (Auto) 6 % (0-3) Basophils (%) (Auto) 0 % (0-3) Neutrophils # (Auto) 6.9 x10^3uL (1.8-7.7) Lymphocytes # (Auto) 0.5 x10^3/uL (1.0-4.8) Monocytes # (Auto) 0.9 x10^3/uL (0.0-1.1) Eosinophils # (Auto) 0.5 x10^3/uL (0.0-0.7) Basophils # (Auto) 0.0 x10^3/uL (0.0-0.2) Brief Hospital Course Ms. Beth is a 76 old who presented with weakness and abdominal symptoms and found to have a profound anemia with a Hgb of 2.6. Stool was occult blood positive, bleeding scan wa negative, endoscopies did not reveal source for bleeding, polypectomy was done with path pending. she was transfused and has maintained her Hgb adequately without any sign of ongoing bleeding. Her strength is back and she is not having any medical issues and feels strong enough to be home and independent. Her exam is baseline Discharge Information Condition at Discharge: Improved, Stable Follow Up: Weeks (withing [address] Abdullahi, Dr. Butler in 2 weeks for path report) Disposition/Orders: D/C to Home Scheduled Bumetanide (Bumetanide), 1 MG PO DAILY Ca Cmb No.1/Vit D3/B-6/Fa/B12 (Vitamin D3 1,000 Unit Tablet), 1 EACH PO DAILY, ( Reported) Diltiazem Hcl (Diltiazem 24HR Cd), 240 MG PO QHS Metoprolol Tartrate (Metoprolol Tartrate), 25 MG PO BID Potassium Chloride (Potassium Chloride), 1 CAP PO DAILY, (Reported) Scheduled PRN Acetaminophen (Tylenol), 650 MG PO Q6-8HRS PRN for MILD PAIN, (Reported) Hydrocodone Bit/Acetaminophen (Hydrocodone-Apap 7.5-325 ), 1 TAB PO PRN Q6HRS PRN for PAIN, (Reported) Patient Instructions Patient Instructions pantoprazole 40 mg added, bumetanide and potassium stopped GALE ABDULLAHI MD August 12, 2016 15:20
--- NOTE | 2016-08-14 11:11 | PATHOLOGY ---
PATHOLOGY REPORT * * * * * * * * FINAL DIAGNOSIS: A. Colon, transverse, biopsy: - Hyperplastic polyp. B. Colon, transverse, biopsy: - Adenomatous polyps, approximately four fragments. - Hyperplastic polyps, approximately six fragments. (ALTHEA:; d/t: 08/14/16) REPORT ELECTRONICALLY SIGNED BY: Maurice Escobedo M.D. DATE/TIME: 08/14/2016 11:10 * * * * * * * * GROSS PATHOLOGY: A. Received in formalin labeled "Lima Hector, transverse polyp BX," is a segment of anand soft tissue measuring 0.5 x 0.3 x 0.2 cm in maximum dimension. The specimen is submitted entirely in cassette A1. B. Received in formalin labeled "Lima Kuhn, transverse colon polyp," are 10 segments of anand soft tissue measuring 2.3 x 0.4 x 0.2 cm in aggregate dimensions and ranging from 0.1 to 0.6 cm in maximum dimension. The specimen is submitted entirely in cassette B1. ([place]; 08/13/2016) INITIAL CPT CODE(S): A; 03020 B; 23174 Professional services [place] [address] Technical services performed by [facility] at [address] [place] [address], [facility] [address] [address]. 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
== END 2016-08-12 17:00 | disposition home or self-care (01) | DRG 377 ==
LOC: ER 21:22 → 1 WEST ICU 21:29 → 5 SOUTH 08-10 17:35
PROVIDERS: ADMIT Family Medicine; ATTEND Family Medicine
PROC: 30233N1 Transfusion of Nonautologous Red Blood Cells into Peripheral Vein, Percutaneous Approach (ICD-10-PCS; 2016-08-10)
PROC: 0DBL8ZZ Excision of Transverse Colon, Via Natural or Artificial Opening Endoscopic (ICD-10-PCS; principal; 2016-08-11 17:15)
DX: K57.91 Diverticulosis of intestine, part unspecified, without perforation or abscess with bleeding (principal); E43 Unspecified severe protein-calorie malnutrition; D62 Acute posthemorrhagic anemia; K55.9 Vascular disorder of intestine, unspecified; J96.10 Chronic respiratory failure, unspecified whether with hypoxia or hypercapnia; K64.8 Other hemorrhoids; D57.1 Sickle-cell disease without crisis; D64.9 Anemia, unspecified; E87.5 Hyperkalemia; I11.0 Hypertensive heart disease with heart failure; I27.2 Other secondary pulmonary hypertension; I50.9 Heart failure, unspecified; I70.0 Atherosclerosis of aorta; J44.9 Chronic obstructive pulmonary disease, unspecified; K29.40 Chronic atrophic gastritis without bleeding; Z96.649 Presence of unspecified artificial hip joint; K57.30 Diverticulosis of large intestine without perforation or abscess without bleeding; Z99.81 Dependence on supplemental oxygen; Z88.0 Allergy status to penicillin
CPT/HCPCS: 36415; 36569; 71010; 74022; 78278; 80048; 80053; 82274; 82607; 83540; 83550; 83605; 84484; 85007; 85027; 85610; 85730; 86850; 86900; 86901; 86920; 87641; 88305; 93005; 96374; 96375; A9560; C9113; J1756; J2354; J2704; J7030; J7120; P9016; 99285-25

== ENCOUNTER → 2016-08-25 | Outpatient (CLI) | payer BC ==
[2016-08-12 14:44] VITALS: BP 153/63
[~2016-08-25] MED LIST changes: +PANT40TA5 PO
[2016-08-25 15:19] LABS: BASO # 0.1 x10^3/uL (0.0-0.2); BASO % 1 % (0-3); EOS % 2 % (0-3); LYMPH # 3.3 x10^3/uL (1.0-4.8); LYMPH % 31 % (24-48); MEAN CORPUSCULAR HEMOGLOBIN 25 pg (25-35); MEAN CORPUSCULAR HGB CONC 32 g/dL (31-37); MEAN CORPUSCULAR VOLUME 78 fL (79-100); MONO % 4 % (0-9); NEUT % 62 % (31-73); PLATELET COUNT 368 x10^3/uL (140-400); RED CELL DISTRIBUTION WIDTH 29.2 % (11.5-14.5); WHITE BLOOD COUNT 10.5 x10^3/uL (4.0-11.0)
[2016-08-25 15:38] LABS: ALBUMIN 2.9 g/dL (3.4-5.0); ALBUMIN/GLOBULIN RATIO 0.6 (1.0-1.7); CALCIUM 9.2 mg/dL (8.5-10.1); CREATININE 1.4 mg/dL (0.6-1.0); GFR 44.5; POTASSIUM 4.1 mmol/L (3.5-5.1); TOTAL PROTEIN 7.6 g/dL (6.4-8.2)
[2016-08-25 15:46] LABS: HEMATOCRIT 20.3 % (36.0-47.0); HEMOGLOBIN 6.4 g/dL (12.0-15.5)
[2016-08-25 16:01] LABS: OVALOCYTES OCC; PLT ESTIMATE INCREASED (ADEQUATE); POLYCHROMASIA SLIGHT; TARGET CELLS MOD
[2016-08-25 16:02] LABS: CRENATED RBC PRESENT; SCHISTOCYTES OCC; SICKLE CELLS PRESENT
== END | disposition home or self-care (01) ==
LOC: LAB 14:45
PROVIDERS: ATTEND Family Medicine
DX: Z11.59 Encounter for screening for other viral diseases (principal); I10 Essential (primary) hypertension; D64.9 Anemia, unspecified
CPT/HCPCS: 80053; 83540; 85007; 85027

== ENCOUNTER → 2016-08-27 | Outpatient (CLI) | payer BC ==
[2016-08-27] VITALS (8 sets, daily range): BP systolic 168–191; BP diastolic 73–84
[~2016-08-27] MED LIST changes: +METR250T11 PO; -METR250T3 PO
[2016-08-27 08:28] LABS: HEMATOCRIT 19.3 % (36.0-47.0); HEMOGLOBIN 6.1 g/dL (12.0-15.5)
== END | disposition home or self-care (01) ==
LOC: OPS 07:13
PROVIDERS: ATTEND Family Medicine
DX: D64.9 Anemia, unspecified (principal)
CPT/HCPCS: 36415; 36430; 85014; 85018; 86850; 86900; 86901; 86920; P9016

== ENCOUNTER → 2017-01-14 | Outpatient (CLI) | payer BC ==
[2016-10-23 14:33] VITALS: BP 167/84
[~2017-01-14] MED LIST changes: +FOLI1TAB16 PO; +HYDR500C PO; +METO-247 PO; -METO100T11 PO
--- NOTE | 2017-01-14 14:04 | RAD ---
EXAM: Left lower extremity venous Doppler. HISTORY: Left lower extremity pain/swelling. COMPARISON: None. FINDINGS: Grayscale and Doppler analysis of the left lower extremity deep venous system was performed with graded compression and augmentation. The common femoral, greater saphenous, superficial femoral, popliteal and calf veins were assessed. There is no evidence of deep venous thrombosis. Subcutaneous edema is noted. IMPRESSION: 1. No evidence of deep venous thrombosis.
== END | disposition home or self-care (01) ==
LOC: US 13:24
PROVIDERS: ATTEND Internal Medicine Hematology & Oncology
DX: M79.605 Pain in left leg (principal); M79.89 Other specified soft tissue disorders
CPT/HCPCS: 93971

== ENCOUNTER 2017-03-08 14:02 | Inpatient (IN) | payer BC ==
[2017-03-08] VITALS (13 sets, daily range): BP systolic 145–178; BP diastolic 50–83
[~2017-03-08] VITALS: Ht 165.1 cm; Wt 74.9 kg
[2017-03-08 14:49] LABS: BASO # 0.1 x10^3/uL (0.0-0.2); BASO % 1 % (0-3); EOS % 0 % (0-3); LYMPH # 0.5 x10^3/uL (1.0-4.8); LYMPH % 9 % (24-48); MEAN CORPUSCULAR HEMOGLOBIN 25 pg (25-35); MEAN CORPUSCULAR HGB CONC 31 g/dL (31-37); MEAN CORPUSCULAR VOLUME 80 fL (79-100); MONO % 16 % (0-9); NEUT % 73 % (31-73); PLATELET COUNT 224 x10^3/uL (140-400); RED BLOOD COUNT 2.38 x10^6/uL (3.50-5.40); RED CELL DISTRIBUTION WIDTH 22.9 % (11.5-14.5); WHITE BLOOD COUNT 5.2 x10^3/uL (4.0-11.0)
[2017-03-08 14:53] LABS: HEMATOCRIT 18.9 % (36.0-47.0); HEMOGLOBIN 5.9 g/dL (12.0-15.5)
[2017-03-08 14:56] LABS: HCO3 ABG 18 mmol/L (21-28); PCO2 ABG 30 mmHg (35-46); PH ABG 7.41 (7.35-7.45); PO2 ABG 105 mmHg (65-108); SAT O2 ABG 97 % (92-99)
[2017-03-08 15:02] LABS: CALCIUM 8.4 mg/dL (8.5-10.1); CREATININE 2.9 mg/dL (0.6-1.0); GFR 19.1; POTASSIUM 5.2 mmol/L (3.5-5.1)
--- NOTE | 2017-03-08 15:07 | RAD ---
Indication: Short of air. Weakness for 2 weeks. Technique: Upright portable chest radiograph was obtained and compared to a study from October 21, 2016. Findings: Opacity in the right lung base is similar to prior study, presumably pleural parenchymal scarring. No definite airspace disease is apparent. Heart is enlarged. Pulmonary vasculature may be mildly cephalized. There is atheromatous disease in the thoracic aorta. There are degenerative changes in the shoulders. There may either be enchondroma or proximal right humerus bone infarct. Similar appearance was noted on January 14, 2012 chest radiograph. Leads overlie the patient. Impression: 1. No acute thoracic findings. 2. Presumed right pleural parenchymal scarring, stable. 3. Cardiomegaly.
[2017-03-08] MEDS ORDERED: IV NORMAL SALINE 500ML BAG 500 ML IV ONE (15:15)
--- NOTE | 2017-03-08 15:16 | EKG ---
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
[2017-03-08 15:17] LABS: ALBUMIN 2.6 g/dL (3.4-5.0); ALBUMIN/GLOBULIN RATIO 0.5 (1.0-1.7)
[2017-03-08 15:19] LABS: NUCLEATED RBC 89; PLT ESTIMATE ADEQUATE (ADEQUATE)
[2017-03-08 15:21] LABS: ANISOCYTOSIS MOD; HYPOCHROMIA SLIGHT; POIKILOCYTOSIS MOD; POLYCHROMASIA PRESENT; SICKLE CELLS PRESENT; TARGET CELLS MOD
[2017-03-08 15:22] LABS: HOWELL-JOLLY BODIES PRESENT; SCHISTOCYTES FEW; TEAR DROP CELLS OCC
--- NOTE | 2017-03-08 15:27 | PHYS DOC ---
Past Medical History Past Medical History: Arthritis, CHF, COPD, GI Bleed, Hypertension, Sickle Cell Disease, Other Additional Past Medical Histor: PULMONARY HTN,MALIGNANT HTN,02 DEPENDENCE Past Surgical History: Appendectomy, Cholecystectomy, Hip Replacement, Hysterectomy, Other Additional Past Surgical Histo: bilat hip Alcohol Use: None Drug Use: None Adult General Chief Complaint Chief Complaint: SHORTNESS OF BREATH HPI HPI Patient is a 77 year old female who presents with dyspnea for at least the past 1-2 weeks ; denies chest pain nausea vomiting diarrhea; patient is a very poor historian; recent treatment with antibiotics for possible respiratory infection. Denies black or bloody stools. Denies hematemesis. Review of Systems Review of Systems Constitutional: Denies fever or chills [] Eyes: Denies change in visual acuity, redness, or eye pain [] HENT: Denies nasal congestion or sore throat [] Respiratory: Denies cough or shortness of breath [] Cardiovascular: No additional information not addressed in HPI [] GI: Denies abdominal pain, nausea, vomiting, bloody stools or diarrhea [] : Denies dysuria or hematuria [] Musculoskeletal: Denies back pain or joint pain [] Integument: Denies rash or skin lesions [] Neurologic: Denies headache, focal weakness or sensory changes [] Endocrine: Denies polyuria or polydipsia [] All other systems were reviewed and found to be within normal limits, except as documented in this note. Current Medications Current Medications Current Medications Medications (Trade) Dose Ordered Sig/Franchesca Start Time Stop Time Status Last Admin Dose Admin Sodium Chloride 500 ml @ 500 mls/hr 1X ONCE 03/08/17 15:15 03/08/17 16:14 DC 03/08/17 16:06 500 MLS/HR Allergies Allergies Allergies Coded Allergies Type Severity Reaction Last Updated Verified Penicillins Allergy Intermediate Hives 10/07/16 Yes Physical Exam Physical Exam Constitutional: Well developed, well nourished, no acute distress, non-toxic appearance. [] HENT: Normocephalic, atraumatic, bilateral external ears normal, oropharynx moist, no oral exudates, nose normal. [] Eyes: PERRLA, EOMI, conjunctiva normal, no discharge. [] Neck: Normal range of motion, no tenderness, supple, no stridor. [] Cardiovascular:Heart rate regular rhythm, no murmur [] Lungs & Thorax: Bilateral breath sounds clear to auscultation [] Abdomen: Bowel sounds normal, soft, no tenderness, no masses, no pulsatile masses. [] Skin: Warm, dry, no erythema, no rash. [] Back: No tenderness, no CVA tenderness. [] Extremities: No tenderness, no cyanosis, no clubbing, ROM intact, no edema. [] Neurologic: Alert and oriented X 3, normal motor function, normal sensory function, no focal deficits noted. [] Psychologic: Affect normal, judgement normal, mood normal. [] Current Patient Data Vital Signs Vital Signs Date Time Temp Pulse Resp B/P (MAP) Pulse Ox O2 Delivery O2 Flow Rate FiO2 03/08/17 16:09 52 161/72 (101) 100 Nasal Cannula 5.0 03/08/17 14:08 97.9 18 97.9 Lab Values Laboratory Tests Test 03/08/17 14:25 03/08/17 14:39 03/08/17 16:05 White Blood Count 5.2 x10^3/uL (4.0-11.0) Red Blood Count 2.38 x10^6/uL (3.50-5.40) L Hemoglobin 5.9 g/dL (12.0-15.5) *L 5.9 g/dL (12.0-15.5) *L Hematocrit 18.9 % (36.0-47.0) *L 18.8 % (36.0-47.0) *L Mean Corpuscular Volume 80 fL (79-100) Mean Corpuscular Hemoglobin 25 pg (25-35) Mean Corpuscular Hemoglobin Concent 31 g/dL (31-37) 31 g/dL (31-37) Red Cell Distribution Width 22.9 % (11.5-14.5) H Platelet Count 224 x10^3/uL (140-400) Neutrophils (%) (Auto) 73 % (31-73) Lymphocytes (%) (Auto) 9 % (24-48) L Monocytes (%) (Auto) 16 % (0-9) H Eosinophils (%) (Auto) 0 % (0-3) Basophils (%) (Auto) 1 % (0-3) Neutrophils # (Auto) 3.8 x10^3uL (1.8-7.7) Lymphocytes # (Auto) 0.5 x10^3/uL (1.0-4.8) L Monocytes # (Auto) 0.8 x10^3/uL (0.0-1.1) Eosinophils # (Auto) 0.0 x10^3/uL (0.0-0.7) Basophils # (Auto) 0.1 x10^3/uL (0.0-0.2) Segmented Neutrophils % 73 % (35-66) H Lymphocytes % 13 % (24-48) L Monocytes % 13 % (0-10) H Myelocytes % 1 % (0-0) H Nucleated Red Blood Cells 89 Platelet Estimate Adequate (ADEQUATE) Polychromasia Present Hypochromasia Slight Poikilocytosis Mod Anisocytosis Mod Sickle Cells Present Target Cells Mod Tear Drop Cells Occ Drew-[place] Bodies Present Schistocytes Few Sodium Level 136 mmol/L (136-145) Potassium Level 5.2 mmol/L (3.5-5.1) H Chloride Level 104 mmol/L (98-107) Carbon Dioxide Level 19 mmol/L (21-32) L Anion Gap 13 (6-14) Blood Urea Nitrogen 32 mg/dL (7-20) H Creatinine 2.9 mg/dL (0.6-1.0) H Estimated GFR (Cockcroft-Gault) 19.1 BUN/Creatinine Ratio 11 (6-20) Glucose Level 151 mg/dL (70-99) H Calcium Level 8.4 mg/dL (8.5-10.1) L Total Bilirubin 1.0 mg/dL (0.2-1.0) Aspartate Amino Transferase (AST) 22 U/L (15-37) Alanine Aminotransferase (ALT) 13 U/L (14-59) L Alkaline Phosphatase 123 U/L (46-116) H Troponin I Quantitative 0.024 ng/mL (0.000-0.055) CT-Pmm-V-Type Natriuretic Peptide 90410 pg/mL (0-449) H Total Protein 8.0 g/dL (6.4-8.2) Albumin 2.6 g/dL (3.4-5.0) L Albumin/Globulin Ratio 0.5 (1.0-1.7) L O2 Saturation 97 % (92-99) Arterial Blood pH 7.41 (7.35-7.45) Arterial Blood pCO2 at Patient Temp 30 mmHg (35-46) L Arterial Blood pO2 at Patient Temp 105 mmHg (65-108) Arterial Blood HCO3 18 mmol/L (21-28) L Arterial Blood Base Excess -6 mmol/L (-3-3) L FiO2 48.0 Reticulocyte Count (auto) 1.7 % (0.5-2.5) Prothrombin Time 15.5 SEC (11.7-14.0) H Prothrombin Time INR 1.3 (0.8-1.1) H Laboratory Tests 03/08/17 14:25 03/08/17 16:05 Laboratory Tests 03/08/17 14:25 EKG EKG EKG normal sinus rhythm rate of 51 no STEMI QTC 430, my interpretation [] Radiology/Procedures Radiology/Procedures Chest x-ray[ cardiomegaly no infiltrate no pulmonary edema my interpretation] Course & Med Decision Making Course & Med Decision Making Pertinent Labs and Imaging studies reviewed. (See chart for details) [Hemoglobins down to 5.9 which we will transfuse packed red blood cells. Creatinine is almost doubled to 2.9 with a baseline of 1.4 according to the computer. She was given IV fluids and will be transfused. Critical care time 35 minutes outside of separately billable procedures] Dragon Disclaimer Dragon Disclaimer This electronic medical record was generated, in whole or in part, using a voice recognition dictation system. Departure Departure Impression: Primary Impression: Severe anemia Additional Impression: Acute renal failure Disposition: 09 ADMITTED INPATIENT Admitting Physician: Vijay Abdullahi Referrals: Mehdi ABDULLAHI MD (PCP) Problem Qualifiers STAR SLOAN MD Mar 08, 2017 15:27
[2017-03-08 16:23] LABS: HEMATOCRIT 18.8 % (36.0-47.0); HEMOGLOBIN 5.9 g/dL (12.0-15.5)
[2017-03-08 16:25] LABS: INR 1.3 (0.8-1.1); PROTHROMBIN TIME PATIENT 15.5 SEC (11.7-14.0)
[2017-03-08] MEDS ORDERED: ACETAMINOPHEN 325 MG TABLET. PO PRN (17:00)
[2017-03-08] MEDS ORDERED: ONDANSETRON PF 4 MG/2 ML VIAL. IV PRN (17:00)
[2017-03-08] MEDS ORDERED: MORPHINE SULFATE 2 MG/ML DISP.SYRIN. IV PRN (17:00)
[2017-03-09 03:00] VITALS: BP 131/60
[2017-03-09 04:18] LABS: BASO % 0 % (0-3); EOS % 1 % (0-3); HEMATOCRIT 22.5 % (36.0-47.0); HEMOGLOBIN 7.3 g/dL (12.0-15.5); LYMPH # 0.6 x10^3/uL (1.0-4.8); LYMPH % 10 % (24-48); MEAN CORPUSCULAR HEMOGLOBIN 26 pg (25-35); MEAN CORPUSCULAR HGB CONC 32 g/dL (31-37); MEAN CORPUSCULAR VOLUME 79 fL (79-100); MONO % 15 % (0-9); NEUT % 74 % (31-73); PLATELET COUNT 194 x10^3/uL (140-400); RED BLOOD COUNT 2.84 x10^6/uL (3.50-5.40); RED CELL DISTRIBUTION WIDTH 20.5 % (11.5-14.5); WHITE BLOOD COUNT 5.7 x10^3/uL (4.0-11.0)
[2017-03-09 04:23] LABS: CALCIUM 8.6 mg/dL (8.5-10.1); CREATININE 2.9 mg/dL (0.6-1.0); GFR 19.1; POTASSIUM 5.5 mmol/L (3.5-5.1)
[2017-03-09 07:00] VITALS: BP 140/53
[2017-03-09] MEDS ORDERED: HYDROcodone/APAP 7.5/325MG 1 TAB TABLET PO PRN (09:00)
[2017-03-09] MEDS: ACETAMINOPHEN 325 MG TABLET. PO PRN ×2 (09:21→21:15)
[2017-03-09] MEDS: CHOLECALCIFEROL (VITAMIN D3) 1,000 UNIT TABLET PO SCH (09:21)
[2017-03-09] MEDS: FOLIC ACID 1 MG TABLET. PO SCH (09:21)
[2017-03-09] MEDS: METOPROLOL TART IMMED RELEASE 25 MG TABLET. PO SCH ×2 (09:22→21:15)
[2017-03-09] MEDS: HYDROXYUREA 500 MG CAPSULE PO SCH (09:30)
--- NOTE | 2017-03-09 09:50 | HP ---
ADMIT DATE: 03/08/2017 ADMISSION DIAGNOSES: Severe anemia with history of sickle cell and left hip pain consistent with crisis. She has also been dyspneic for the last 1-2 weeks, but denies chest pain. She has been followed at Hematology. They are trying to get her to go a full month between visits. She has required multiple transfusions in the past, and there is concern about iron overload now. PAST MEDICAL HISTORY: Significant for sickle cell disease, osteoarthritis, COPD, CHF, hypertension. She has had a past GI bleed. She has pulmonary hypertension. She is chronically dependent on oxygen usually at 3 liters. PAST SURGICAL HISTORY: Includes appendectomy, cholecystectomy, hip replacement, hysterectomy. ALLERGIES: SHE HAS AN ALLERGY TO PENICILLIN. HOME MEDICATIONS: Include Tylenol 650 q.6-8 hours p.r.n. and vitamin D 3000 units daily, diltiazem extended release 240 mg daily, folic acid 1 mg daily, hydrocodone APAP 1 q.6 hours p.r.n. pain, hydroxyurea 1000 mg daily, metoprolol 25 mg b.i.d., pantoprazole 40 mg daily. SOCIAL HISTORY: No tobacco or alcohol. FAMILY HISTORY: Noncontributory, obviously history of sickle cell. REVIEW OF SYSTEMS: HEENT: She denies change in vision or hearing. She has not had a sore throat. CONSTITUTIONAL: Negative for fever, chills or night sweats. CARDIAC: Negative for chest pain. PULMONARY: Positive for dyspnea with activity. ABDOMEN: No nausea, vomiting, change in bowels. GENITOURINARY: No dysuria. MUSCULOSKELETAL: Positive for left hip pain. She denies any falls. NEUROLOGIC: No dizziness. SKIN: No lesions. PHYSICAL EXAMINATION: VITAL SIGNS: She has been afebrile, heart rates have been in the 50s and lower 60s. She has been saturating upper 90s on 3-5 liters nasal cannula oxygen. Blood pressure 140/53. GENERAL: She is not in any acute distress. HEENT: She is wearing glasses. Her sclerae bit icteric. Mucous membranes are moist. She is alert and oriented. She has some diminished hearing. NECK: Supple. HEART: Regular rate and rhythm. LUNGS: Clear anteriorly. ABDOMEN: Soft, nondistended, no masses, no tenderness. EXTREMITIES: There is tenderness in her left hip on palpation though. There is edema of her lower extremities, but that has improved since admission. There is no skin breakdown on her lower legs. LABORATORY DATA: Initial hemoglobin of 5.9, corrected to 7.3 after 1 unit of packed red blood cells. Retic count 1.7. There are few schistocytes. There are bodies present. Occasional teardrop cells, moderate target cells. Sickle cells are present. Blood gas showed a pH of 7.41, pCO2 of 30 and a pO2 of 105 on 48% FiO2. INR 1.3. Potassium is elevated at 5.2, has gone up to 5.5 after transfusion. Creatinine baseline is 1.4, she is currently at 2.9. Her BUN is 33. ProBNP was elevated at 11,803. Troponin 0.024, albumin 2.6, alkaline phosphatase 123. Liver enzymes are normal. Glucose of 151, has come down to 113. IMAGING STUDY: Chest x-ray shows cardiomegaly, but no acute pulmonary findings. 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 ASSESSMENT: 1. Sickle cell crisis with left hip pain. 2. Dyspnea from anemia. 3. Anemia of sickle cell disease. 4. 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 5. Hypertension. 6. Hyperkalemia. PLAN: We will dose her with Lasix for her hyperkalemia, better hydrate her with oral and IV fluids. She may require additional transfusion. She may need a hematology and cardiology consults. W Kathy ABDULLAHI MD DR: KATE/cyril JOB#: [id number] / [id number]
[2017-03-09 10:52] VITALS: BP 143/50
--- NOTE | 2017-03-09 14:35 | RAD ---
Left hip, 2 views, 03/09/2017: History: Hip pain Comparison is made to a study from 01/05/2015. There is patchy bony demineralization. The left hip prosthesis is unchanged in position. 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 There is no radiographic evidence of loosening or infection. No fracture or dislocation is evident. IMPRESSION: 1. Demineralization. 2. Stable left hip prosthesis.
[2017-03-09 15:00] VITALS: BP 122/55
[2017-03-09 19:00] VITALS: BP 157/58
[2017-03-09 23:07] VITALS: BP 157/58
[2017-03-10 03:00] VITALS: BP 136/48
[2017-03-10 07:00] VITALS: BP 157/67
[2017-03-10] MEDS: CHOLECALCIFEROL (VITAMIN D3) 1,000 UNIT TABLET PO SCH (08:54)
[2017-03-10] MEDS: PANTOPRAZOLE 40 MG TABLET.DR. PO SCH (08:54)
[2017-03-10] MEDS: METOPROLOL TART IMMED RELEASE 25 MG TABLET. PO SCH ×2 (08:54→21:02)
[2017-03-10] MEDS: ACETAMINOPHEN 325 MG TABLET. PO PRN (08:55)
[2017-03-10] MEDS: FOLIC ACID 1 MG TABLET. PO SCH (08:55)
[2017-03-10] MEDS: HYDROXYUREA 500 MG CAPSULE PO SCH (09:00)
[2017-03-10 11:00] VITALS: BP 153/52
[2017-03-10 15:00] VITALS: BP 131/69
--- NOTE | 2017-03-10 16:50 | PDOC ---
PROGRESS NOTES Subjective She is feeling weak and wants PT/OT to evaluate her, no new symptoms, X- ray of hip was unremarkable, prosthesis is intact Objective Afebrile General: alert Heart: RRR with 4/6 murmur Lungs: CTAB Abd: soft and non tender, bowels moving Ext: edema of LE stable Vital Signs Vital Signs Date Time Temp Pulse Resp B/P (MAP) Pulse Ox O2 Delivery O2 Flow Rate FiO2 03/10/17 11:00 98.4 74 20 153/52 (85) 97 Nasal Cannula 3.0 98.4 I & O Intake and Output 03/10/17 07:00 Intake Total 1100 ml Output Total 1250 ml Balance -150 ml Intake Oral 1100 ml Output Urine Total 1250 ml Assessment and Plan 1. Sickle cell crisis with left hip pain- improving 2. Dyspnea from anemia - improving 3. Anemia of sickle cell disease. 4. Left hip pain with history of prosthetic hip, X-ray negative for acute findings. PT/OT to see. 5. Hypertension - treating, continue to monitor. 6. Hyperkalemia, monitoring. Problems: Mehdi ABDULLAHI MD Mar 10, 2017 16:50
[2017-03-10 19:00] VITALS: BP 173/57
[2017-03-10 23:45] VITALS: BP 155/62
[2017-03-11 03:50] VITALS: BP 134/87
[2017-03-11 07:00] VITALS: BP 171/66
[2017-03-11] MEDS: PANTOPRAZOLE 40 MG TABLET.DR. PO SCH (07:10)
[2017-03-11 08:52] LABS: CALCIUM 8.7 mg/dL (8.5-10.1); CREATININE 2.3 mg/dL (0.6-1.0); POTASSIUM 5.9 mmol/L (3.5-5.1)
[2017-03-11] MEDS ORDERED: DEXTROSE 5% IV ONE (09:30)
[2017-03-11] MEDS ORDERED: FUROSEMIDE 40 MG/4 ML VIAL. IVP ONE (09:30)
[2017-03-11] MEDS ORDERED: CALCIUM GLUCONATE 1,000 MG in IV NORMAL SALINE 100ML 100 ML IV ONE (09:30)
[2017-03-11] MEDS ORDERED: CALCIUM GLUCONATE IV ONE (09:30)
[2017-03-11] MEDS: CHOLECALCIFEROL (VITAMIN D3) 1,000 UNIT TABLET PO SCH (09:39)
[2017-03-11] MEDS: METOPROLOL TART IMMED RELEASE 25 MG TABLET. PO SCH (09:40)
[2017-03-11] MEDS: FOLIC ACID 1 MG TABLET. PO SCH (09:40)
[2017-03-11] MEDS: HYDROXYUREA 500 MG CAPSULE PO SCH (09:47)
[2017-03-11 09:55] LABS: BASO % 1 % (0-3); EOS % 5 % (0-3); HEMATOCRIT 25.4 % (36.0-47.0); HEMOGLOBIN 7.7 g/dL (12.0-15.5); LYMPH # 0.9 x10^3/uL (1.0-4.8); LYMPH % 15 % (24-48); MEAN CORPUSCULAR HEMOGLOBIN 25 pg (25-35); MEAN CORPUSCULAR HGB CONC 30 g/dL (31-37); MEAN CORPUSCULAR VOLUME 82 fL (79-100); MONO % 12 % (0-9); NEUT % 68 % (31-73); PLATELET COUNT 201 x10^3/uL (140-400); RED BLOOD COUNT 3.09 x10^6/uL (3.50-5.40); RED CELL DISTRIBUTION WIDTH 21.5 % (11.5-14.5); WHITE BLOOD COUNT 6.1 x10^3/uL (4.0-11.0)
[2017-03-11 11:00] VITALS: BP 162/57
[2017-03-11 15:00] VITALS: BP 144/55
[2017-03-11 15:52] LABS: CALCIUM 8.9 mg/dL (8.5-10.1); CREATININE 2.7 mg/dL (0.6-1.0); GFR 20.8; POTASSIUM 5.5 mmol/L (3.5-5.1)
--- NOTE | 2017-03-11 16:51 | PDOC3 ---
Discharge Summary [facility] Date of Admission: Mar 08, 2017 Discharge Date: Mar 11, 2017 Final Diagnosis Problems Medical Problems: (1) Acute renal failure Status: Acute (2) Severe anemia Status: Acute Brief Hospital Course Ms. Beth is a 77 old [sex] who presented with: 1. Sickle cell crisis with left hip pain- improving 2. Dyspnea from anemia - improving 3. Anemia of sickle cell disease - requiring transfusion of 1 unit of pRBC. 4. Left hip pain with history of prosthetic hip, X-ray negative for acute findings. PT/OT to see and feels she is safe to discharge home with home health. 5. Hypertension - treating, continue to monitor, continue home meds. 6. Hyperkalemia, monitoring, improved after Lasix dose, continue to monitor as outpatient, avoid foods high in potassium, may need daily lasix dose. Patient History: Patient reports no known family medical history. Problems: Disposition home with home health, PT/OT, continue O2 CONDITION AT DISCHARGE: Improved, Stable Diet low sodium Scheduled Ca Cmb No.1/Vit D3/B-6/Fa/B12 (Vitamin D3 1,000 Unit Tablet), 1 EACH PO DAILY, ( Reported) Diltiazem Hcl (Diltiazem 24HR Cd), 240 MG PO QHS Folic Acid (Folic Acid), 1 MG PO DAILY Hydroxyurea (Hydrea), 1,000 MG PO DAILY Metoprolol Tartrate (Metoprolol Tartrate), 25 MG PO BID Pantoprazole Sodium (Pantoprazole Sodium), 40 MG PO DAILYAC Scheduled PRN Acetaminophen (Tylenol), 650 MG PO Q6-8HRS PRN for MILD PAIN, (Reported) Hydrocodone Bit/Acetaminophen (Hydrocodone-Apap 7.5-325 ), 1 TAB PO PRN Q6HRS PRN for PAIN, (Reported) Follow Up 1 week with Mehdi Pereira MD Mar 11, 2017 16:51
== END 2017-03-11 18:00 | disposition home health service (06) | DRG 682 ==
LOC: ER 14:02 → 6 SOUTH 16:12
PROVIDERS: ADMIT Family Medicine; ATTEND Family Medicine
PROC: 30233N1 Transfusion of Nonautologous Red Blood Cells into Peripheral Vein, Percutaneous Approach (ICD-10-PCS; principal; 2017-03-08)
DX: N17.0 Acute kidney failure with tubular necrosis (principal); D57.00 Hb-SS disease with crisis, unspecified; E87.5 Hyperkalemia; I50.9 Heart failure, unspecified; I11.0 Hypertensive heart disease with heart failure; I27.20 Pulmonary hypertension, unspecified; J44.9 Chronic obstructive pulmonary disease, unspecified; Z90.49 Acquired absence of other specified parts of digestive tract; Z90.710 Acquired absence of both cervix and uterus; Z96.649 Presence of unspecified artificial hip joint; Z99.81 Dependence on supplemental oxygen; M19.90 Unspecified osteoarthritis, unspecified site; Z88.0 Allergy status to penicillin; M25.552 Pain in left hip
CPT/HCPCS: 36415; 71010; 73502; 80048; 80053; 82805; 83880; 84484; 85007; 85014; 85018; 85025; 85045; 85610; 86850; 86900; 86901; 86920; 93005; 96360; J0610; J1940; J2270; J7040; P9016; 99291-25

== ENCOUNTER 2017-05-16 18:42 | Inpatient (IN) | payer BC ==
[2017-05-16 20:12] LABS: BASE EXCESS ABG -3 mmol/L (-3-3); HCO3 ABG 21 mmol/L (21-28); PCO2 ABG 33 mmHg (35-46); PO2 ABG 75 mmHg (65-108); SAT O2 ABG 91 % (92-99)
[2017-05-16 20:13] LABS: PH ABG 7.43 (7.35-7.45)
[2017-05-16 20:26] LABS: ADD MAN DIFF? NO
[2017-05-16 20:35] LABS: BASO % 0 % (0-3); EOS % 0 % (0-3); LYMPH # 0.6 x10^3/uL (1.0-4.8); LYMPH % 7 % (24-48); MEAN CORPUSCULAR HEMOGLOBIN 27 pg (25-35); MEAN CORPUSCULAR HGB CONC 33 g/dL (31-37); MEAN CORPUSCULAR VOLUME 81 fL (79-100); MONO # 1.6 x10^3/uL (0.0-1.1); MONO % 19 % (0-9); NEUT # 6.5 x10^3uL (1.8-7.7); NEUT % 75 % (31-73); PLATELET COUNT 207 x10^3/uL (140-400); RED BLOOD COUNT 2.49 x10^6/uL (3.50-5.40); RED CELL DISTRIBUTION WIDTH 22.6 % (11.5-14.5); WHITE BLOOD COUNT 8.7 x10^3/uL (4.0-11.0)
[2017-05-16 20:37] LABS: INFLUENZA A PATIENT NEGATIVE (NEGATIVE); INFLUENZA B PATIENT NEGATIVE (NEGATIVE); OBC FLU VALID
[2017-05-16 20:41] LABS: ANION GAP 8 (6-14); BLOOD UREA NITROGEN 30 mg/dL (7-20); BUN/CREATININE RATIO 13 (6-20); CALCIUM 9.2 mg/dL (8.5-10.1); CARBON DIOXIDE 24 mmol/L (21-32); CHLORIDE 107 mmol/L (98-107); CREATININE 2.4 mg/dL (0.6-1.0); GFR 23.8; GLUCOSE 124 mg/dL (70-99); HEMOGLOBIN 6.7 g/dL (12.0-15.5); POTASSIUM 4.8 mmol/L (3.5-5.1); SODIUM 139 mmol/L (136-145)
[2017-05-16 20:42] LABS: HEMATOCRIT 20.2 % (36.0-47.0)
[2017-05-16 20:47] LABS: ALBUMIN 2.8 g/dL (3.4-5.0); ALBUMIN/GLOBULIN RATIO 0.5 (1.0-1.7); ALK PHOS 121 U/L (46-116); ALT (SGPT) 31 U/L (14-59); AST (SGOT) 59 U/L (15-37); LIPASE 111 U/L (73-393); TOTAL BILIRUBIN 3.7 mg/dL (0.2-1.0)
[2017-05-16 20:52] LABS: LACTIC ACID 3.2 mmol/L (0.4-2.0)
[2017-05-16] MEDS ORDERED: fentaNYL PF VIAL 100 MCG/2 ML VIAL IV (21:00)
[2017-05-16 21:24] LABS: BILIRUBIN,URINE MODERATE (NEG); CLARITY,URINE CLOUDY; COLOR,URINE AMBER; GLUCOSE,URINE NEGATIVE (NEG); NITRITE,URINE NEGATIVE (NEG); PROTEIN,URINE >=300 mg/dL (NEG-TRACE)
[2017-05-16 21:36] LABS: AMORPHOUS SEDIMENT,UR PRESENT /HPF; BACTERIA,URINE 0 /HPF (0-FEW); HYALINE CASTS, URINE MANY /HPF; RBC,URINE 0 /HPF (0-2); WBC,URINE 0 /HPF (0-4)
[2017-05-16] MEDS: HYDROcodone/APAP 7.5/325MG 1 TAB TABLET PO (23:49)
[2017-05-16] MEDS: METOPROLOL TART IMMED RELEASE 25 MG TABLET. PO (23:51)
[2017-05-17 04:52] LABS: ADD MAN DIFF? NO
[2017-05-17 04:58] LABS: BASO % 0 % (0-3); EOS % 0 % (0-3); LYMPH % 13 % (24-48); MEAN CORPUSCULAR HEMOGLOBIN 27 pg (25-35); MEAN CORPUSCULAR HGB CONC 33 g/dL (31-37); MEAN CORPUSCULAR VOLUME 81 fL (79-100); MONO # 1.5 x10^3/uL (0.0-1.1); MONO % 20 % (0-9); NEUT % 66 % (31-73); PLATELET COUNT 196 x10^3/uL (140-400); RED BLOOD COUNT 2.41 x10^6/uL (3.50-5.40); WHITE BLOOD COUNT 7.6 x10^3/uL (4.0-11.0)
[2017-05-17 05:14] LABS: HEMATOCRIT 19.7 % (36.0-47.0); HEMOGLOBIN 6.5 g/dL (12.0-15.5)
[2017-05-17 05:35] LABS: ANION GAP 7 (6-14); BLOOD UREA NITROGEN 32 mg/dL (7-20); CALCIUM 9.1 mg/dL (8.5-10.1); CARBON DIOXIDE 24 mmol/L (21-32); CHLORIDE 105 mmol/L (98-107); CREATININE 2.6 mg/dL (0.6-1.0); GFR 21.7; GLUCOSE 120 mg/dL (70-99); POTASSIUM 5.1 mmol/L (3.5-5.1); SODIUM 136 mmol/L (136-145)
[2017-05-17] MEDS: PANTOPRAZOLE 40 MG TABLET.DR. PO (06:05)
[2017-05-17] MEDS: ONDANSETRON PF 4 MG/2 ML VIAL. IV (06:32)
[2017-05-17] MEDS: CHOLECALCIFEROL (VITAMIN D3) 1,000 UNIT TABLET PO (08:48)
[2017-05-17] MEDS: METOPROLOL TART IMMED RELEASE 25 MG TABLET. PO ×2 (08:48→20:37)
[2017-05-17] MEDS: ASCORBIC ACID 500 MG TABLET PO (08:48)
[2017-05-17] MEDS: FOLIC ACID 1 MG TABLET. PO (08:48)
[2017-05-17] MEDS ORDERED: HYDROXYUREA 500 MG CAPSULE PO (09:00)
[2017-05-17] MEDS: HYDROcodone/APAP 7.5/325MG 1 TAB TABLET PO ×2 (14:38→20:36)
[2017-05-17] MEDS: HYDROXYUREA 500 MG CAPSULE PO (16:47)
[2017-05-18 04:57] LABS: ADD MAN DIFF? NO
[2017-05-18 05:18] LABS: BASO % 0 % (0-3); EOS % 1 % (0-3); LYMPH # 1.1 x10^3/uL (1.0-4.8); LYMPH % 12 % (24-48); MEAN CORPUSCULAR HEMOGLOBIN 26 pg (25-35); MEAN CORPUSCULAR HGB CONC 32 g/dL (31-37); MEAN CORPUSCULAR VOLUME 82 fL (79-100); MONO # 1.3 x10^3/uL (0.0-1.1); MONO % 15 % (0-9); NEUT # 6.8 x10^3uL (1.8-7.7); NEUT % 73 % (31-73); PLATELET COUNT 171 x10^3/uL (140-400); RED BLOOD COUNT 2.42 x10^6/uL (3.50-5.40); WHITE BLOOD COUNT 9.3 x10^3/uL (4.0-11.0)
[2017-05-18 05:39] LABS: ANION GAP 10 (6-14); BLOOD UREA NITROGEN 42 mg/dL (7-20); CARBON DIOXIDE 23 mmol/L (21-32); CHLORIDE 102 mmol/L (98-107); CREATININE 2.9 mg/dL (0.6-1.0); GFR 19.1; GLUCOSE 105 mg/dL (70-99); SODIUM 135 mmol/L (136-145)
[2017-05-18 05:40] LABS: POTASSIUM 5.3 mmol/L (3.5-5.1)
[2017-05-18 06:00] LABS: HEMATOCRIT 19.8 % (36.0-47.0); HEMOGLOBIN 6.4 g/dL (12.0-15.5)
[2017-05-18] MEDS: PANTOPRAZOLE 40 MG TABLET.DR. PO (06:05)
[2017-05-18] MEDS: ASCORBIC ACID 500 MG TABLET PO (08:43)
[2017-05-18] MEDS: METOPROLOL TART IMMED RELEASE 25 MG TABLET. PO ×2 (08:43→20:54)
[2017-05-18] MEDS: FOLIC ACID 1 MG TABLET. PO (08:43)
[2017-05-18] MEDS: CHOLECALCIFEROL (VITAMIN D3) 1,000 UNIT TABLET PO (08:43)
[2017-05-18] MEDS: FUROSEMIDE 20 MG/2 ML VIAL. IVP ×2 (09:30→19:48)
[2017-05-18] MEDS: HYDROXYUREA 500 MG CAPSULE PO (20:01)
[2017-05-18 21:30] LABS: LACTIC ACID 12.1 mmol/L (0.4-2.0)
[2017-05-18 22:14] LABS: BASE EXCESS ABG -16 mmol/L (-3-3); HCO3 ABG 10 mmol/L (21-28); PCO2 ABG 24 mmHg (35-46); PH ABG 7.25 (7.35-7.45); PO2 ABG 69 mmHg (65-108); SAT O2 ABG 84 % (92-99)
[2017-05-18 22:48] LABS: ANION GAP 20 (6-14); BLOOD UREA NITROGEN 53 mg/dL (7-20); CALCIUM 9.1 mg/dL (8.5-10.1); CARBON DIOXIDE 15 mmol/L (21-32); CHLORIDE 101 mmol/L (98-107); CREATININE 4.1 mg/dL (0.6-1.0); GFR 12.8; GLUCOSE 42 mg/dL (70-99); SODIUM 136 mmol/L (136-145)
[2017-05-18 22:54] LABS: POTASSIUM 6.8 mmol/L (3.5-5.1)
[2017-05-18 22:55] LABS: TROPONINI 0.398 ng/mL (0.000-0.055)
[2017-05-18 23:00] LABS: CKMB INDEX 2.9 % (0-4); CKMB MASS 2.2 ng/mL (0.0-3.6); CREATINE KINASE 76 U/L (26-192)
[2017-05-18] MEDS: DEXTROSE 50% 25 GM / 50ML DISP.SYRIN. IV (23:05)
[2017-05-18] MEDS: SODIUM BICARB ADULT 8.4% 50 MEQ/50 ML DISP.SYRIN. IV (23:21)
[2017-05-18 23:30] LABS: POC GLUCOSE 73 mg/dL (70-99)
[2017-05-18 23:30] LABS: POC GLUCOSE 52 mg/dL (70-99)
[2017-05-18 23:30] LABS: POC GLUCOSE 14 mg/dL (70-99)
[2017-05-19] MEDS: IV NORMAL SALINE 1000ML BAG 1,000 ML IV ×2 (00:13→06:42)
[2017-05-19 00:27] LABS: POC GLUCOSE 111 mg/dL (70-99)
[2017-05-19 00:44] LABS: NT-PRO BNP > 35000 pg/mL (0-449)
[2017-05-19 02:00] LABS: LACTIC ACID 11.2 mmol/L (0.4-2.0)
[2017-05-19] MEDS: VANCOMYCIN 1 GM in IV 1/2 NORMAL SALINE 250 ML IV (02:09)
[2017-05-19] MEDS: VANCOMYCIN PER PHARMACY MC (02:14)
[2017-05-19 03:52] LABS: MEAN CORPUSCULAR HEMOGLOBIN 27 pg (25-35); MEAN CORPUSCULAR HGB CONC 32 g/dL (31-37); MEAN CORPUSCULAR VOLUME 82 fL (79-100); PLATELET COUNT 152 x10^3/uL (140-400); RED BLOOD COUNT 2.22 x10^6/uL (3.50-5.40); RED CELL DISTRIBUTION WIDTH 21.4 % (11.5-14.5)
[2017-05-19 04:05] LABS: ANION GAP 20 (6-14); BLOOD UREA NITROGEN 54 mg/dL (7-20); CALCIUM 8.7 mg/dL (8.5-10.1); CARBON DIOXIDE 15 mmol/L (21-32); CHLORIDE 100 mmol/L (98-107); GFR 13.2; GLUCOSE 127 mg/dL (70-99); POTASSIUM 5.3 mmol/L (3.5-5.1); SODIUM 135 mmol/L (136-145)
[2017-05-19 04:11] LABS: TROPONINI 0.396 ng/mL (0.000-0.055)
[2017-05-19 04:20] LABS: HEMATOCRIT 18.3 % (36.0-47.0); HEMOGLOBIN 5.9 g/dL (12.0-15.5)
[2017-05-19 06:02] LABS: LACTIC ACID 11.3 mmol/L (0.4-2.0)
[2017-05-19] MEDS: PANTOPRAZOLE 40 MG TABLET.DR. PO (07:30)
[2017-05-19 08:00] LABS: IMMEDIATE SPIN CROSSMATCH 1 2
[2017-05-19 08:08] LABS: BASE EXCESS ABG -9 mmol/L (-3-3); HCO3 ABG 16 mmol/L (21-28); PCO2 ABG 28 mmHg (35-46); PH ABG 7.38 (7.35-7.45); PO2 ABG 64 mmHg (65-108); SAT O2 ABG 86 % (92-99)
[2017-05-19 08:13] LABS: FIO2 ABG 40
[2017-05-19 08:42] LABS: POC GLUCOSE 124 mg/dL (70-99)
[2017-05-19] MEDS: LACTOBACILLUS RHAMNOSUS GG 1 CAPSULE. PO ×2 (09:00→20:51)
[2017-05-19] MEDS: METOPROLOL TART IMMED RELEASE 25 MG TABLET. PO ×2 (09:00→20:51)
[2017-05-19] MEDS: FOLIC ACID 1 MG TABLET. PO (09:00)
[2017-05-19] MEDS: CHOLECALCIFEROL (VITAMIN D3) 1,000 UNIT TABLET PO (09:00)
[2017-05-19] MEDS: ASCORBIC ACID 500 MG TABLET PO (09:00)
[2017-05-19] MEDS: OSELTAMIVIR 30 MG CAPSULE PO (10:00)
[2017-05-19] MEDS ORDERED: MAGNESIUM SULFATE 2GM 50 ML IV (10:15)
[2017-05-19 12:16] LABS: URIC ACID 6.8 mg/dL (2.6-6.0)
[2017-05-19 12:16] LABS: CREATINE KINASE 190 U/L (26-192)
[2017-05-19 12:28] LABS: MYOGLOBIN 210 ng/mL (9-82)
[2017-05-19 12:33] LABS: LACTATE DEHYDROGENASE 1695 U/L (81-234)
[2017-05-19 12:39] LABS: LACTIC ACID 7.1 mmol/L (0.4-2.0)
[2017-05-19] MEDS: SODIUM BICARBONATE VIAL 150 MEQ in IV DEXTROSE 5% 1,000 ML IV (13:30)
[2017-05-19 13:50] LABS: BILIRUBIN,URINE SMALL (NEG); GLUCOSE,URINE NEGATIVE (NEG); NITRITE,URINE NEGATIVE (NEG); PH,URINE 5.5; PROTEIN,URINE 100 mg/dL (NEG-TRACE)
[2017-05-19 14:33] LABS: CLARITY,URINE HAZY; COLOR,URINE YELLOW
[2017-05-19 14:37] LABS: BACTERIA,URINE 0 /HPF (0-FEW); RBC,URINE 20-40 /HPF (0-2); SQUAMOUS EPITHELIAL CELL,UR FEW /LPF
[2017-05-19 14:38] LABS: HYALINE CASTS, URINE MODERATE /HPF
[2017-05-19] MEDS: HYDROXYUREA 500 MG CAPSULE PO (16:00)
[2017-05-19 17:29] LABS: POC GLUCOSE 194 mg/dL (70-99)
[2017-05-19] MEDS ORDERED: MORPHINE SULFATE 4 MG/ML DISP.SYRIN. IV (18:45)
[2017-05-20 00:24] LABS: POC GLUCOSE 158 mg/dL (70-99)
[2017-05-20] MEDS: SODIUM BICARBONATE VIAL 150 MEQ in IV DEXTROSE 5% 1,000 ML IV (01:03)
[2017-05-20 02:18] LABS: MRSA BY PCR Negative (Negative)
[2017-05-20] MEDS: LACTOBACILLUS RHAMNOSUS GG 1 CAPSULE. PO ×2 (08:15→21:11)
[2017-05-20] MEDS: PANTOPRAZOLE 40 MG TABLET.DR. PO (08:16)
[2017-05-20] MEDS: OSELTAMIVIR 30 MG CAPSULE PO (08:16)
[2017-05-20] MEDS: ASCORBIC ACID 500 MG TABLET PO (08:16)
[2017-05-20] MEDS: METOPROLOL TART IMMED RELEASE 25 MG TABLET. PO ×2 (08:16→21:11)
[2017-05-20] MEDS: FOLIC ACID 1 MG TABLET. PO (08:16)
[2017-05-20] MEDS: CHOLECALCIFEROL (VITAMIN D3) 1,000 UNIT TABLET PO (08:17)
[2017-05-20 08:59] LABS: HEMOGLOBIN 7.9 g/dL (12.0-15.5)
[2017-05-20 09:02] LABS: RETIC COUNT 2.7 % (0.5-2.5)
[2017-05-20 09:33] LABS: ALBUMIN 2.2 g/dL (3.4-5.0); ANION GAP 8 (6-14); BLOOD UREA NITROGEN 53 mg/dL (7-20); CALCIUM 8.4 mg/dL (8.5-10.1); CARBON DIOXIDE 27 mmol/L (21-32); CHLORIDE 98 mmol/L (98-107); CREATININE 2.9 mg/dL (0.6-1.0); GFR 19.1; GLUCOSE 133 mg/dL (70-99); PHOSPHORUS 3.5 mg/dL (2.6-4.7); POTASSIUM 4.1 mmol/L (3.5-5.1); SODIUM 133 mmol/L (136-145)
[2017-05-20 10:23] LABS: TOTAL PROTEIN CREATININE RATIO 1887 (0-200); UR CREATININE RD 91.2 mg/dL (Not Estab.); UR PROTEIN RD 172.1 mg/dL (Not Estab.)
[2017-05-20] MEDS: MEROPENEM 500 MG in IV NORMAL SALINE 50ML 50 ML IV (11:07)
[2017-05-20 12:17] LABS: CALCIUM PTH 8.6 mg/dL (8.7-10.3); CREATININE PTH 3.54 mg/dL (0.57-1.00); PHOSPHORUS PTH 5.9 mg/dL (2.5-4.5); PTH INTACT 708 pg/mL (15-65); eGFR AFRICAN-AMER 14 (>59); eGFR NON AFRICAN-AMER 12 (>59)
[2017-05-20] MEDS: HYDROXYUREA 500 MG CAPSULE PO (18:40)
[2017-05-20] MEDS: FUROSEMIDE 20 MG/2 ML VIAL. IVP (18:41)
[2017-05-20] MEDS ORDERED: POLYETHYLENE GLYCOL 3350 17 GM PACKET. PO (19:00)
[2017-05-20] MEDS: VANCOMYCIN RANDOM LEVEL. MC (23:00)
[2017-05-21] MEDS: VANCOMYCIN PER PHARMACY MC (00:17)
[2017-05-21] MEDS: VANCOMYCIN 1.5 GM in IV DEXTROSE 5 %-0.2 % NACL 500 ML IV (00:23)
[2017-05-21 06:20] LABS: ADD MAN DIFF? NO
[2017-05-21 06:38] LABS: BASO % 1 % (0-3); EOS % 1 % (0-3); HEMATOCRIT 26.5 % (36.0-47.0); HEMOGLOBIN 8.6 g/dL (12.0-15.5); LYMPH # 0.6 x10^3/uL (1.0-4.8); LYMPH % 8 % (24-48); MEAN CORPUSCULAR HEMOGLOBIN 27 pg (25-35); MEAN CORPUSCULAR HGB CONC 33 g/dL (31-37); MEAN CORPUSCULAR VOLUME 82 fL (79-100); MONO # 0.8 x10^3/uL (0.0-1.1); MONO % 10 % (0-9); NEUT # 6.3 x10^3uL (1.8-7.7); NEUT % 81 % (31-73); PLATELET COUNT 145 x10^3/uL (140-400); RED BLOOD COUNT 3.24 x10^6/uL (3.50-5.40); RED CELL DISTRIBUTION WIDTH 19.9 % (11.5-14.5); WHITE BLOOD COUNT 7.8 x10^3/uL (4.0-11.0)
[2017-05-21 06:41] LABS: RETIC COUNT 2.4 % (0.5-2.5)
[2017-05-21 06:42] LABS: ALBUMIN 2.4 g/dL (3.4-5.0); ANION GAP 7 (6-14); BLOOD UREA NITROGEN 53 mg/dL (7-20); CALCIUM 8.8 mg/dL (8.5-10.1); CARBON DIOXIDE 27 mmol/L (21-32); CHLORIDE 99 mmol/L (98-107); CREATININE 2.8 mg/dL (0.6-1.0); GFR 19.9; GLUCOSE 106 mg/dL (70-99); PHOSPHORUS 3.3 mg/dL (2.6-4.7); POTASSIUM 4.1 mmol/L (3.5-5.1); SODIUM 133 mmol/L (136-145)
[2017-05-21 08:14] LABS: PLT ESTIMATE ADEQUATE (ADEQUATE)
[2017-05-21 08:15] LABS: POLYCHROMASIA SLIGHT
[2017-05-21 08:16] LABS: ANISOCYTOSIS MOD; BIZZARE CELLS FEW; HYPOCHROMIA MOD; POIKILOCYTOSIS SLIGHT; TARGET CELLS MOD
[2017-05-21] MEDS: CHOLECALCIFEROL (VITAMIN D3) 1,000 UNIT TABLET PO (09:41)
[2017-05-21] MEDS: MEROPENEM 500 MG in IV NORMAL SALINE 50ML 50 ML IV (09:41)
[2017-05-21] MEDS: LACTOBACILLUS RHAMNOSUS GG 1 CAPSULE. PO ×2 (09:41→20:40)
[2017-05-21] MEDS: FOLIC ACID 1 MG TABLET. PO (09:42)
[2017-05-21] MEDS: ASCORBIC ACID 500 MG TABLET PO (09:42)
[2017-05-21] MEDS: PANTOPRAZOLE 40 MG TABLET.DR. PO (09:42)
[2017-05-21] MEDS: OSELTAMIVIR 30 MG CAPSULE PO (09:42)
[2017-05-21] MEDS: METOPROLOL TART IMMED RELEASE 25 MG TABLET. PO ×2 (09:43→20:39)
[2017-05-21 11:05] LABS: MYCOPLASMA PATIENT NEGATIVE (NEGATIVE); NEGATIVE OBC MYCO NEG
[2017-05-21 11:06] LABS: POSITIVE OBC MYCO POS
[2017-05-21 16:17] LABS: LEGIONELLA AG UR Negative (Negative)
[2017-05-21] MEDS: HYDROXYUREA 500 MG CAPSULE PO (16:40)
[2017-05-21 22:19] LABS: SPECIMEN SOURCE Urine (.); STREP PNEUMO ANTIGEN Negative (Negative)
[2017-05-22] MEDS ORDERED: VANCOMYCIN RANDOM LEVEL. MC
[2017-05-22 00:10] LABS: HEMOGLOBIN A1C 4.8 % (4.8-5.6)
[2017-05-22 05:45] LABS: ALBUMIN 2.1 g/dL (3.4-5.0); ANION GAP 7 (6-14); BLOOD UREA NITROGEN 50 mg/dL (7-20); CALCIUM 8.6 mg/dL (8.5-10.1); CARBON DIOXIDE 27 mmol/L (21-32); CHLORIDE 101 mmol/L (98-107); CREATININE 2.4 mg/dL (0.6-1.0); GFR 23.8; GLUCOSE 100 mg/dL (70-99); PHOSPHORUS 3.8 mg/dL (2.6-4.7); POTASSIUM 4.4 mmol/L (3.5-5.1); SODIUM 135 mmol/L (136-145)
[2017-05-22 05:47] LABS: LACTIC ACID 0.9 mmol/L (0.4-2.0)
[2017-05-22] MEDS: LACTOBACILLUS RHAMNOSUS GG 1 CAPSULE. PO ×2 (08:38→21:28)
[2017-05-22] MEDS: FOLIC ACID 1 MG TABLET. PO (08:39)
[2017-05-22] MEDS: CHOLECALCIFEROL (VITAMIN D3) 1,000 UNIT TABLET PO (08:39)
[2017-05-22] MEDS: PANTOPRAZOLE 40 MG TABLET.DR. PO (08:39)
[2017-05-22] MEDS: ASCORBIC ACID 500 MG TABLET PO (08:40)
[2017-05-22] MEDS: METOPROLOL TART IMMED RELEASE 25 MG TABLET. PO ×2 (08:40→21:29)
[2017-05-22] MEDS: OSELTAMIVIR 30 MG CAPSULE PO (08:40)
[2017-05-22] MEDS: MEROPENEM 500 MG in IV NORMAL SALINE 50ML 50 ML IV (10:05)
[2017-05-22] MEDS: CALCITRIOL 0.25 MCG CAPSULE. PO (11:22)
[2017-05-22] MEDS: HYDROcodone/APAP 7.5/325MG 1 TAB TABLET PO (15:09)
[2017-05-22] MEDS ORDERED: ALBUTEROL SULFATE 2.5 MG/3 ML NEBU. NEB (19:30)
[2017-05-23 05:56] LABS: MAGNESIUM 2.2 mg/dL (1.8-2.4)
[2017-05-23] MEDS: PANTOPRAZOLE 40 MG TABLET.DR. PO (06:07)
[2017-05-23 07:41] LABS: ALBUMIN 2.3 g/dL (3.4-5.0); ANION GAP 5 (6-14); BLOOD UREA NITROGEN 49 mg/dL (7-20); CARBON DIOXIDE 28 mmol/L (21-32); CHLORIDE 104 mmol/L (98-107); CREATININE 2.5 mg/dL (0.6-1.0); GFR 22.7; GLUCOSE 96 mg/dL (70-99); PHOSPHORUS 4.2 mg/dL (2.6-4.7); SODIUM 137 mmol/L (136-145)
[2017-05-23 07:42] LABS: POTASSIUM 5.2 mmol/L (3.5-5.1)
[2017-05-23] MEDS: CALCITRIOL 0.25 MCG CAPSULE. PO (08:29)
[2017-05-23] MEDS: ASCORBIC ACID 500 MG TABLET PO (08:29)
[2017-05-23] MEDS: METOPROLOL TART IMMED RELEASE 25 MG TABLET. PO ×2 (08:29→20:34)
[2017-05-23] MEDS: OSELTAMIVIR 30 MG CAPSULE PO (08:30)
[2017-05-23] MEDS: FOLIC ACID 1 MG TABLET. PO (08:30)
[2017-05-23] MEDS: CHOLECALCIFEROL (VITAMIN D3) 1,000 UNIT TABLET PO (08:30)
[2017-05-23] MEDS: MEROPENEM 500 MG in IV NORMAL SALINE 50ML 50 ML IV (08:40)
[2017-05-23] MEDS ORDERED: SODIUM POLYSTYRENE SULFONATE 15 GM/60 ML ORAL.SUSP. PO (09:00)
[2017-05-23] MEDS: LACTOBACILLUS RHAMNOSUS GG 1 CAPSULE. PO ×2 (11:03→20:32)
[2017-05-23 13:09] LABS: POTASSIUM 4.6 mmol/L (3.5-5.1)
[2017-05-24 05:43] LABS: ANION GAP 6 (6-14); BLOOD UREA NITROGEN 42 mg/dL (7-20); CARBON DIOXIDE 27 mmol/L (21-32); CHLORIDE 102 mmol/L (98-107); CREATININE 2.1 mg/dL (0.6-1.0); GFR 27.8; GLUCOSE 94 mg/dL (70-99); PHOSPHORUS 3.6 mg/dL (2.6-4.7); POTASSIUM 4.4 mmol/L (3.5-5.1); SODIUM 135 mmol/L (136-145)
[2017-05-24] MEDS: PANTOPRAZOLE 40 MG TABLET.DR. PO (08:01)
[2017-05-24] MEDS: ASCORBIC ACID 500 MG TABLET PO (09:02)
[2017-05-24] MEDS: MEROPENEM 500 MG in IV NORMAL SALINE 50ML 50 ML IV (09:02)
[2017-05-24] MEDS: CHOLECALCIFEROL (VITAMIN D3) 1,000 UNIT TABLET PO (09:02)
[2017-05-24] MEDS: FOLIC ACID 1 MG TABLET. PO (09:03)
[2017-05-24] MEDS: CALCITRIOL 0.25 MCG CAPSULE. PO (09:03)
[2017-05-24] MEDS: METOPROLOL TART IMMED RELEASE 25 MG TABLET. PO ×2 (09:03→20:39)
[2017-05-24] MEDS: OSELTAMIVIR 30 MG CAPSULE PO (09:03)
[2017-05-24] MEDS: LACTOBACILLUS RHAMNOSUS GG 1 CAPSULE. PO ×2 (09:03→20:38)
[2017-05-24] MEDS: ENOXAPARIN 30 MG/0.3 ML SYRINGE. SQ (10:38)
[2017-05-24] MEDS: HYDROXYUREA 500 MG CAPSULE PO (15:53)
[2017-05-25 00:14] LABS: POC GLUCOSE 126 mg/dL (70-99)
[2017-05-25 05:17] LABS: ADD MAN DIFF? NO
[2017-05-25 05:48] LABS: ANION GAP 6 (6-14); BLOOD UREA NITROGEN 38 mg/dL (7-20); CARBON DIOXIDE 27 mmol/L (21-32); CHLORIDE 103 mmol/L (98-107); CREATININE 1.8 mg/dL (0.6-1.0); GFR 33.2; GLUCOSE 102 mg/dL (70-99); PHOSPHORUS 3.7 mg/dL (2.6-4.7); POTASSIUM 4.2 mmol/L (3.5-5.1); SODIUM 136 mmol/L (136-145)
[2017-05-25 05:55] LABS: BASO % 0 % (0-3); EOS # 0.2 x10^3/uL (0.0-0.7); EOS % 2 % (0-3); HEMATOCRIT 24.6 % (36.0-47.0); HEMOGLOBIN 7.8 g/dL (12.0-15.5); LYMPH % 11 % (24-48); MEAN CORPUSCULAR HEMOGLOBIN 27 pg (25-35); MEAN CORPUSCULAR HGB CONC 32 g/dL (31-37); MEAN CORPUSCULAR VOLUME 86 fL (79-100); MONO # 1.4 x10^3/uL (0.0-1.1); MONO % 15 % (0-9); NEUT # 6.6 x10^3uL (1.8-7.7); NEUT % 72 % (31-73); RED BLOOD COUNT 2.87 x10^6/uL (3.50-5.40); RED CELL DISTRIBUTION WIDTH 21.5 % (11.5-14.5); WHITE BLOOD COUNT 9.1 x10^3/uL (4.0-11.0)
[2017-05-25 05:58] LABS: PLATELET COUNT 123 x10^3/uL (140-400)
[2017-05-25] MEDS: LACTOBACILLUS RHAMNOSUS GG 1 CAPSULE. PO (08:11)
[2017-05-25] MEDS: CALCITRIOL 0.25 MCG CAPSULE. PO (08:11)
[2017-05-25] MEDS: CHOLECALCIFEROL (VITAMIN D3) 1,000 UNIT TABLET PO (08:11)
[2017-05-25] MEDS: PANTOPRAZOLE 40 MG TABLET.DR. PO (08:11)
[2017-05-25] MEDS: FOLIC ACID 1 MG TABLET. PO (08:12)
[2017-05-25] MEDS: ASCORBIC ACID 500 MG TABLET PO (08:12)
[2017-05-25] MEDS: METOPROLOL TART IMMED RELEASE 25 MG TABLET. PO (08:12)
[2017-05-25] MEDS: MEROPENEM 500 MG in IV NORMAL SALINE 50ML 50 ML IV (08:13)
[2017-05-25] MEDS: ENOXAPARIN 30 MG/0.3 ML SYRINGE. SQ (10:33)
[2017-05-25] MEDS: NYSTATIN 100,000 UNITS/ML 5 ML ORAL.SUSP. SWSW (13:22)
[2017-05-25] MEDS: ACETAMINOPHEN 325 MG TABLET. PO (13:22)
[2017-05-25] MEDS ORDERED: CEFPODOXIME PROXETIL 100 MG TABLET. PO (21:00)
== END 2017-05-25 15:57 | DRG 871 ==
LOC: 1 WEST ICU 05-19 00:11 → 5 NORTH 05-21 16:53 → ER 18:42 → 5 NORTH 20:44
PROC: 5A09357 Assistance with Respiratory Ventilation, Less than 24 Consecutive Hours, Continuous Positive Airway Pressure (ICD-10-PCS; principal; 2017-05-18)
PROC: 5A09357 Assistance with Respiratory Ventilation, Less than 24 Consecutive Hours, Continuous Positive Airway Pressure (ICD-10-PCS; 2017-05-19)
PROC: 30233N1 Transfusion of Nonautologous Red Blood Cells into Peripheral Vein, Percutaneous Approach (ICD-10-PCS; 2017-05-19)
PROC: 5A09357 Assistance with Respiratory Ventilation, Less than 24 Consecutive Hours, Continuous Positive Airway Pressure (ICD-10-PCS; 2017-05-20)
DX: A41.9 Sepsis, unspecified organism (principal); J96.21 Acute and chronic respiratory failure with hypoxia; N17.0 Acute kidney failure with tubular necrosis; D57.00 Hb-SS disease with crisis, unspecified; G92 Toxic encephalopathy; N18.4 Chronic kidney disease, stage 4 (severe); E87.5 Hyperkalemia; I27.21 Secondary pulmonary arterial hypertension; I08.1 Rheumatic disorders of both mitral and tricuspid valves; I13.0 Hypertensive heart and chronic kidney disease with heart failure and stage 1 through stage 4 chronic kidney disease, or unspecified chronic kidney disease; I50.32 Chronic diastolic (congestive) heart failure; I48.91 Unspecified atrial fibrillation; E16.2 Hypoglycemia, unspecified; E21.3 Hyperparathyroidism, unspecified; J44.9 Chronic obstructive pulmonary disease, unspecified; K21.9 Gastro-esophageal reflux disease without esophagitis; K57.30 Diverticulosis of large intestine without perforation or abscess without bleeding; F41.9 Anxiety disorder, unspecified; M19.90 Unspecified osteoarthritis, unspecified site; Z96.643 Presence of artificial hip joint, bilateral; K59.00 Constipation, unspecified; Z86.010 Personal history of colon polyps; Z80.0 Family history of malignant neoplasm of digestive organs; Z86.73 Personal history of transient ischemic attack (TIA), and cerebral infarction without residual deficits; Z87.891 Personal history of nicotine dependence; Z88.0 Allergy status to penicillin; Z90.49 Acquired absence of other specified parts of digestive tract; Z90.710 Acquired absence of both cervix and uterus; Z99.81 Dependence on supplemental oxygen
CPT/HCPCS: 36415; 36600; 70450; 71045; 71250; 74150; 76770; 80048; 80053; 80069; 80202; 81001; 82550; 82553; 82570; 82805; 82962; 83036; 83605; 83615; 83690; 83735; 83874; 83880; 83970; 84132; 84156; 84300; 84484; 84550; 85018; 85025; 85027; 85045; 86738; 86850; 86900; 86901; 86920; 87040; 87086; 87449; 87641; 87804; 87804-59; 93005; 93306; 93970; 94660; 94760; 97110-GO; 97110-GP; 97161-GP; 97163-GP; 97166-GO; 97530-GO; 97530-GP; 97535-GO; 99285; 99285-25; J1650; J1956; J2185; J2405; J3370; J3490; J7030; J7042; P9016